=== PATIENT | female | born 1995 | race Caucasian/White ===

== ENCOUNTER → 2018-05-17 14:42 | Outpatient (CLI) | payer OTHER, SELFPAY ==
[2018-05-17 12:52] VITALS: BMI 35.1
--- OUTSIDE RECORDS SUMMARY | 2018-07-20 02:52 | XMS RPT_ITS ---
:1995 Author Organization [facility] Care Team Providers Name Role Phone Jeremiah Terrell Attending Unavailable Myra Gayle Referring Unavailable Jeremiah Terrell Attending Unavailable Jeremiah Terrell Referring Unavailable Myra Gayle Primary Care Unavailable PROBLEMS PROBLEMS DATE TYPE CONDITION / CODE ATTENDING STATUS SOURCE 05/17/2018 Unknown J02.9 - Acute Jeremiah Terrell Active Jasen pharyngitis, Community unspecified / Hospital J02.9(ICD-10) Repository PROCEDURES PROCEDURES No Procedure Records FoundRESULTS RESULTS Observed: 05/17/2018 Status: F Source: [place] CULTURE, R/O STREP A 3:43 PM [facility] REPOSITORY MICHELE Culture * This cultures intended use is to screen for Beta Streptococcus A only. All other pathogens and potential pathogens will not be screened for or reported. If a complete workup of all potential pathogens is indicated an order for a routine throat culture is required. No Streptococcus group A isolated. Performed By: #### M100.010 #### [facility] [address] [place], [place] [address]deana. 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 Patient states that the episode started with a cough and nasal drainage then developed into a sore throat. She describes her cough as productive of yellow sputum however denies hemoptysis, shortness of breath or difficulty breathing. She has had no fever, chills, sweats. No nausea, vomiting, diarrhea. No known ill contacts. She has not taken any medications for this current episode. No other associated symptoms or alleviating/aggravating factors. ROS Const Constitutional: No fever(s), chills, headache(s), night sweats or abnormal sleep pattern ENT ENT: Positive for nasal discharge, nasal congestion and post nasal drip; no headache(s), ear pain, ear discharge or sore throat Resp Respiratory: Positive for cough Cough: Yes productive and pain with cough; no wheezing, hemoptysis or shortness of breath Cardio Cardiology: No chest pain at rest or shortness of breath Neuro Neurology: No headache(s), behavioral changes or confusion Psych Psychiatric: No abnormal sleep pattern, No behavioral changes, No confusion Aller/Imm Allergy/Immunologic: No wheezing Exam Const General: cooperative, well developed HENKY Head: normal to inspection Ears: hearing grossly normal bilaterally, TM's normal bilaterally, EAC's normal Nose: nasal discharge clear Mouth: oral mucosae normal Throat: abnormal tonsil (Tonsillar to the right tonsil.) bilaterally, postnasal drainage, posterior oropharynx abnormal erythema; Negative for no exudates Resp Effort AND Inspection: normal respiratory effort, no audible wheezes, not labored Auscultation: Bilateral: Clear to Auscultation Cardio Palpation: normal PMI Rate: regular rate Rhythm: regular rhythm Neuro General: alert, CN's II-XI intact bilaterally Psych Appearance: grossly normal Mental Status: mental status grossly normal Results BMSRAPIDSTREPA Office Rapid Strep A Negative Last Edit by Florence Devries on 05/17/18 13:06 Assessment AND Plan Problems 1. URI, acute J06.9 Status Acute 2. Tonsillith J35.8 Status Acute Plan Encouraged to get plenty of rest, drink lots of clear liquids, and use Tylenol or Ibuprofen (unless contraindicated) for fever and comfort. Patient also educated on other symptomatic management techniques. To be seen in 7-10 days if no improvement; sooner if worsening of symptoms. Patient educated on tonsilloliths and their cause and all questions were answered. Patient advised of potential red flags and when appropriate to report to the ED. Patient verbalized understanding and agreement with all the above. Orders Orders: Coding Level of Care Code Off vis,new,level 3 Diagnoses URI, acute J06.9 Tonsillith J35.8 05/17/18 1428 <Electronically signed by Jeremiah CORTES> Date Jeremiah CORTES Cosigner Signature: Date (if applicable) CC: ALLERGIES ALLERGIES DATE TYPE / CODE NAME / CODE REACTION SEVERITY SOURCE 05/17/2018 Drug No Known Unknown [facility] Allergy/4160 Allergies/F00 [facility] [address]382(SNOMED [id number](RXNOR Repository CT) M) ENCOUNTERS ENCOUNTERS ADMIT/DISCHARGE ACCOUNT ADMITTING ENCOUNTER LOCATION SOURCE NUMBER CLASS 05/17/2018 [id number] Ambulatory [place] [facility] ing:LABSPEC Repository 05/17/2018/ [id number] Ambulatory BMSBuilding:B [place] 9 0 [facility] Repository PAYERS PAYERS ENCOUNTER GUARANTOR PAYER SUBSCRIBER SOURCE 05/17/2018 KWAN Cruz Primary Insurance:[facility] NANI DALEB: Jasen [id number] [facility] [id number], [place] [address]Ezr: Number: Repository [id number] (HP) Date:[id number] [address], [place] [address]ZF: CHECK WEBSITE 05/17/2018 Secondary NOT GIVENUNK [place] Insurance:SELF PAY [facility] Number: Effective Repository Date:2018-05-17 05/17/2018 KWAN Cruz Primary Insurance:[facility] NANI DALEB: Jasen [id number] [facility] [id number], [place] [address]Iuc: Number: Repository [id number] (HP) Date:[id number] [address], [place] [address]MW: CHECK WEBSITE 05/17/2018 Secondary NOT GIVENUNK [place] Insurance:SELF PAY [facility] Number: Effective Repository Date:2018-05-17
== END ==
PROVIDERS: Family Provider Family Medicine; PCP Family Medicine; Referring Provider Physician Assistant Surgical; Visit Provider Physician Assistant Surgical
DX: J02.9 Acute pharyngitis, unspecified (principal)
CPT/HCPCS: 87081

== ENCOUNTER 2018-08-12 18:33 | Emergency (ER) | payer OTHER, SELFPAY ==
[2018-05-17 12:52] VITALS: BMI 35.1
[2018-08-12 18:34] VITALS: BP 143/92; PULSE 100; RESP 16; TEMP 36.9; O2SAT 100; BMI 30.4
--- NOTE | 2018-08-12 18:48 | EKG12_ITS ---
Test Reason : CP Blood Pressure : / mmHG Vent. Rate : 091 BPM Atrial Rate : 091 BPM P-R Int : 158 ms QRS Dur : 094 ms QT Int : 354 ms P-R-T Axes : 057 026 -04 degrees QTc Int : 435 ms Normal sinus rhythm Possible Left atrial enlargement Nonspecific T wave abnormality Abnormal ECG Confirmed by ELIJAH TABARES, ENEDELIA ([id number]), brands editor MOLINA BELL ([id number]) on 08/16/2018 10:29:02 AM Referred By: EHSAN Confirmed By:ENEDELIA NAVA MD
--- NOTE | 2018-08-12 19:02 | RAD_ITS ---
STUDY: X-RAY CHEST REASON FOR EXAM: Female, 22 years old. A second chest pain for 2 days. TECHNIQUE: Single AP portable view of the chest. COMPARISON: Acute abdominal series with chest, January 21, 2015. FINDINGS: There is a decreased inspiratory effort. Prior study. There is no new mass or infiltrate. There is no demonstrated pleural abnormality. Normal size heart. Normal mediastinum and matt. Normal visualized pulmonary arteries. Normal visualized aortic arch and descending thoracic aorta. Normal visualized thoracic spine. Normal visualized ribs, clavicles, and shoulders. There is no demonstrated abnormality of the visualized soft tissue structures of the upper abdomen. RAD/Chest 1 View (Portable) IMPRESSION: No acute cardiopulmonary disease. Electronically Signed: Jonathan Carvajal DO at 19:14 EDT Tel [phone], Service support ,
[2018-08-12 19:05] VITALS: O2SAT 100
[2018-08-12 19:09] LABS: Absolute Lymphocyte Count 2.83 X10^3/ul (0.83-4.51); Absolute Neutrophil Count 5.3 X10^3/uL (2.0-7.7); Basophil# 0.02 X10^3/uL; Basophil% 0.2 % (0-1); Eosinophil# 0.12 X10^3/uL; Eosinophils% 1.4 % (0-5); Hematocrit 38.8 % (37-47); Hemoglobin 12.7 g/dl (12.0-15.0); Lymphocyte # 2.83 X10^3/ul (4.0); Lymphocyte % 31.9 % (19-41); Mean Corp Hgb Conc 32.7 g/gl (32-36); Mean Corpuscular Hgb 27.9 pg (27.0-32.0); Mean Corpuscular Volume 85.1 fL (81-99); Mean Platelet Vol. 10.1 fl (6.2-12.0); Monocyte# 0.53 X10^3/uL; Neutrophil # 5.34 X10^3/uL (2.7-7.7); Neutrophil % 60.3 % (47-70); Platelet Count 257 K/mm3 (150-450); RBC Distribution Width SD 43.7 fl (35.1-43.9); Red Blood Count 4.56 M/mm3 (4.2-5.4); White Blood Count 8.9 K/mm3 (4.4-11.0)
[2018-08-12 19:12] LABS: POSITIVE COUNT NO; POSITIVE DIFFERENTIAL NO; POSITIVE MORPHOLOGY NO
[2018-08-12 19:24] LABS: D-Dimer Quantitative (DVT/PE) < 0.27 FEU/ug/m (0.27-0.49)
[2018-08-12 19:30] LABS: Erythrocyte Sedimentation Rate 10 mm/hr (0-20)
[2018-08-12 19:35] LABS: Anion Gap 7 (5-15); BUN 17 mg/dL (7-18); BUN/Creat Ratio 17.2 RATIO (10-20); Calcium,Total 8.7 mg/dL (8.5-10.1); Chloride 105 mmol/L (98-107); Creatinine, Serum 0.99 mg/dL (0.55-1.02); EST Glomerular Filtration Rate 75 mL/min (>60); Est Glom Filt Rate - Afr Amer 90 mL/min (>60); Estimated Creatinine Clearance 80.89 ml/min; Glucose 126 mg/dL (74-106); Potassium 3.3 mmol/L (3.5-5.1); Sodium Level 139 mmol/L (136-145)
--- NOTE | 2018-08-12 19:50 | ED.VISSUMM ---
- ER Visit Summary Date of Service: 08/12/18 Chief Complaint: [Chest pain] History of Present Illness: The patient is a 22 F [presents the emergency department complaint of chest pain that started 2 days ago. Patient states that she initially started having similar discomfort about a month ago and was seen by her primary care physician who thought perhaps it might be anxiety related. Patient states that her symptoms were relieved for quite some time and then started coming back 2 days ago. Patient has had some mild nausea but no vomiting. She denies recent travel or surgery. She denies injury to her chest.] Physical Examination: [HEENT-PERRLA, EOMI. Cranial nerves II through XII grossly intact. TMs clear. Mucous membranes moist. No adenopathy. Cardiovascular-regular rate and rhythm without murmur or ectopy Lungs-clear to auscultation, chest wall stable without crepitus or subcu emphysema. No chest wall tenderness on palpation. Abdomen-normoactive bowel sounds, soft, nontender, no rebound or rigidity, no peritoneal signs. Extremities-intact ?4, normal range of motion, normal pulses, atraumatic] Test Results: [EKG obtained on arrival shows sinus rhythm with a ventricular rate of 91 bpm with some nonspecific ST changes. No old EKGs available for comparison. CBC with differential was normal. Sed rate was normal at 10. D-dimer is less than 0.27. Troponin is less than 0.015. Chemistries were unremarkable other than slightly depressed potassium 3.3. Chest x-ray showed nothing acute. ] Emergency Department Course and Treatment: [Patient given 40 mEq of potassium chloride p.o.] Treatment Plan: [Follow-up with primary care physician in 5 to 7 days. Patient will be given a prescription for Ativan as needed.] Disposition: [Discharged home in stable condition] Impression: [Chest pain-etiology uncertain Stress reaction] This note was generated with Visiarc dictation software. It may contain incorrect words, spelling, and punctuation that were not noted in review of the chart prior to signing ED Disposition - Plan for ED Patient: Referrals: Myra Gayle DO [Primary Care Provider] -
--- NOTE | 2018-08-12 19:53 | ED.DEP ---
ED Disposition - Plan for ED Patient: Instructions: ED Chest Pain Atypical Unkn Cause, ED Stress React Prescriptions: Lorazepam [Ativan] 1 mg PO TID PRN #10 tab PRN Reason: Anxiety Referrals: Myra Gayle DO [Primary Care Provider] - 5-7 Days
[2018-08-12 19:58] VITALS: BP 130/74; PULSE 76; RESP 16; O2SAT 98
== END 2018-08-12 20:08 | disposition home or self-care (01) ==
LOC: ED 19:08
PROVIDERS: Emergency Provider Emergency Medicine; Family Provider Family Medicine; PCP Family Medicine
DX: R07.9 Chest pain, unspecified (principal); F43.9 Reaction to severe stress, unspecified; F41.9 Anxiety disorder, unspecified; E28.2 Polycystic ovarian syndrome; Z79.84 Long term (current) use of oral hypoglycemic drugs
CPT/HCPCS: 71045; 80048; 84484; 85025; 85379; 85652; 93005; 99284; A4216

== ENCOUNTER → 2018-08-21 | Outpatient (CLI) | payer OTHER, SELFPAY ==
[2018-08-12 18:34] VITALS: BMI 30.4
[2018-08-21 08:17] LABS: Glucose 103 mg/dL (74-106)
[2018-08-21 09:27] LABS: Hemoglobin A1c 5.6 % (4.2-6.3)
== END | disposition home or self-care (01) ==
LOC: LAB 07:27
PROVIDERS: Family Provider Family Medicine; PCP Family Medicine; Referring Provider Family Medicine; Visit Provider Family Medicine
DX: Z91.89 Other specified personal risk factors, not elsewhere classified (principal)
CPT/HCPCS: 36415; 82947; 83036

== ENCOUNTER → 2020-02-14 09:15 | Outpatient (CLI) | payer OTHER, SELFPAY | PROVIDERS: PCP Family Medicine; Referring Provider Family Medicine; Visit Provider Family Medicine | DX: Z20.828 Contact with and (suspected) exposure to other viral communicable diseases (principal) | CPT/HCPCS: 87635; C9803; U0003 ==

== ENCOUNTER → 2020-05-17 15:02 | Outpatient (CLI) | payer OTHER, SELFPAY ==
[2020-04-29 13:58] VITALS: BMI 34.2
[2020-05-17 17:14] LABS: Absolute Lymphocyte Count 2.38 X10^3/uL (0.83-4.51); Absolute Neutrophil Count 4.1 X10^3/uL (2.0-7.7); Basophil# 0.06 X10^3/uL; Basophil% 0.8 % (0-1); Eosinophil# 0.15 X10^3/uL; Eosinophils% 2.1 % (0-5); Hematocrit 36.7 % (37-47); Hemoglobin 11.2 g/dL (12.0-15.0); Lymphocyte # 2.38 X10^3/ul (4.0); Lymphocyte % 32.6 % (19-41); Mean Corp Hgb Conc 30.5 g/dL (32-36); Mean Corpuscular Hgb 25.1 pg (27.0-32.0); Mean Corpuscular Volume 82.1 fL (81-99); Monocyte# 0.62 X10^3/uL; Monocyte% 8.5 % (0-10); NRBC Flagged by Analyzer 0 % (0-5); Neutrophil # 4.07 X10^3/uL (2.7-7.7); Neutrophil % 55.7 % (47-70); Platelet Count 290 K/mm3 (150-450); RBC Distribution Width SD 41.5 fl (35.1-43.9); Red Blood Count 4.47 M/mm3 (4.2-5.4); White Blood Count 7.3 K/mm3 (4.4-11.0)
[2020-05-17 17:50] LABS: Vitamin B12 764 pg/mL (211-911)
[2020-05-17 17:58] LABS: AST(SGOT) 21 U/L (15-37); Alanine Aminotransfer ALT/SGPT 22 U/L (13-56); Alkaline Phosphatase 70 U/L (45-117); Anion Gap 6 (5-15); BUN 15 mg/dL (7-18); BUN/Creat Ratio 18.4 RATIO (10-20); Calcium,Total 8.6 mg/dL (8.5-10.1); Chloride 106 mmol/L (98-107); Creatinine, Serum 0.82 mg/dL (0.55-1.02); EST Glomerular Filtration Rate 92 mL/min (>60); Est Glom Filt Rate - Afr Amer 111 mL/min (>60); Ferritin 6 ng/mL (8-252); Follicle Stimulating Hormone 3.2 mIU/mL; Free T3 2.6 pg/mL (2.18-3.98); Glucose 79 mg/dL (74-106); Iron 27 ug/dL (50-170); Luteinizing Hormone 8.7 mIU/mL; Potassium 3.7 mmol/L (3.5-5.1); Sodium Level 138 mmol/L (136-145); T4 Free Direct 0.76 ng/dL (0.76-1.46); Thyroid Stim Hormone (TSH) 1.75 uIU/mL (0.358-3.74)
== END ==
PROVIDERS: PCP Family Medicine; Referring Provider Family Medicine; Visit Provider Family Medicine
DX: E28.2 Polycystic ovarian syndrome (principal); N91.2 Amenorrhea, unspecified; D64.9 Anemia, unspecified; R53.83 Other fatigue; Z51.81 Encounter for therapeutic drug level monitoring
CPT/HCPCS: 36415; 80053; 82607; 82728; 83001; 83002; 83540; 84439; 84443; 84481; 85025

== ENCOUNTER → 2020-07-05 15:07 | Outpatient (CLI) | payer OTHER, SELFPAY ==
[2020-04-29 13:58] VITALS: BMI 34.2
[2020-07-05 15:40] LABS: Absolute Lymphocyte Count 2.46 X10^3/uL (0.83-4.51); Absolute Neutrophil Count 4.5 X10^3/uL (2.0-7.7); Basophil# 0.06 X10^3/uL; Basophil% 0.8 % (0-1); Eosinophil# 0.16 X10^3/uL; Eosinophils% 2.1 % (0-5); Hematocrit 39.2 % (37-47); Hemoglobin 12.3 g/dL (12.0-15.0); Lymphocyte # 2.46 X10^3/ul (4.0); Lymphocyte % 31.6 % (19-41); Mean Corp Hgb Conc 31.4 g/dL (32-36); Mean Corpuscular Hgb 26.6 pg (27.0-32.0); Mean Corpuscular Volume 84.7 fL (81-99); Mean Platelet Vol. 10.6 fl (6.2-12.0); Monocyte# 0.62 X10^3/uL; NRBC Flagged by Analyzer 0 % (0-5); Neutrophil # 4.46 X10^3/uL (2.7-7.7); Neutrophil % 57.2 % (47-70); Platelet Count 285 K/mm3 (150-450); RBC Distribution Width CV 16.6 % (11.6-14.6); RBC Distribution Width SD 51.7 fl (35.1-43.9); Red Blood Count 4.63 M/mm3 (4.2-5.4); White Blood Count 7.8 K/mm3 (4.4-11.0)
[2020-07-05 16:02] LABS: Ferritin 17 ng/mL (8-252); Iron 42 ug/dL (50-170)
== END ==
PROVIDERS: PCP Family Medicine; Visit Provider Family Medicine
DX: D50.9 Iron deficiency anemia, unspecified (principal)
CPT/HCPCS: 36415; 82728; 83540; 85025

== ENCOUNTER 2020-07-20 09:06 | Day surgery (SDC) | payer OTHER, SELFPAY ==
[2020-04-29 13:58] VITALS: BMI 34.2
[2020-07-20] VITALS (10 sets, daily range): BP systolic 91–137; BP diastolic 37–82; PULSE 57–92; RESP 14–18; TEMP 36.1–36.8; O2SAT 97–100; BMI 33.9
--- NOTE | 2020-07-20 | TONS_PTH ---
PATIENT: KWAN WATKINS LOC: [facility] U#:[id number] AGE/SX: 24/F ROOM: RE07/20/[address]: Dr. Lane Vásquez MD : 1995 BED: DIS: 07/20/2020 SPEC #: [id number] RECD: 07/20/20 13:53 STATUS: BRANDY REEve #: [id number] NEVIN: 07/20/20 00:[address]: Lane Vásquez DEPT: SURGICAL PATHOLOGY RECD BY: Junior Law ENTERED: 07/23/20 07:40 SP TYPE: TONSILS OTHR DR: Dr. Myra Gayle, DO Tissues: A - Tonsil, NOS B - Tonsil, NOS Procedures: Surgery Specimen Level III HEADER OPERATION: Tonsillectomy PRE-OP DIAGNOSIS: Chronic tonsillitis, snoring TISSUE SUBMITTED: A - Right tonsil, B - Left tonsil MICROSCOPIC DIAGNOSIS A. Right tonsil, tonsillectomy: Benign lymphoid follicular hyperplasia, consistent with chronic tonsillitis. Organisms consistent with actinomyces. B. Left tonsil, tonsillectomy: Benign lymphoid follicular hyperplasia, consistent with chronic tonsillitis. Organisms consistent with actinomyces. AM:ethel 07/24/2020 MICROSCOPIC DESCRIPTION Slides are reviewed. GROSS DESCRIPTION A - Received in formalin labeled with the patient's name and designated right tonsil. The specimen consists of a tonsil that weighs 4.3 gm and measures 3 x 2 x 1.5 cm. The external surface is pink-harris, smooth, glistening and somewhat lobulated. Focally it is hemorrhagic, granular and bears cautery artifact. Serial cross sections through the tonsil reveal normal tonsillar architecture. Information Lead sections are submitted in one cassette. B - Received in formalin labeled with the patient's name and designated left tonsil. The specimen consists of a tonsil that weighs 4.3 gm and measures 3 x 2 x 1.5 cm. The external surface is pink-harris, smooth, glistening and somewhat lobulated. Focally it is hemorrhagic, granular and bears cautery artifact. Serial cross sections through the tonsil reveal normal tonsillar architecture. Information Lead sections are submitted in one cassette. / SJ:ethel 07/23/20 TC:5 CPT: 05533 x2
[2020-07-20 09:40] LABS: Internal QC Validated? YES +Cl - CLEAR BKGD; Pregnancy, Urine Negative Negative
--- NOTE | 2020-07-20 10:55 | OP.PCM_ITS ---
Problem List (1) Chronic tonsillitis Status: Chronic (2) Snoring Status: Acute Report of Operation Date of Procedure: 07/20/20 Pre-Operative Diagnosis: Chronic tonsillitis, snoring Post-Operative Diagnosis: Same Surgery/Procedure Performed:: Tonsillectomy Description of Surgical Findings:: And is a 24-year-old female presents evaluation of frequent recurrent sore throats as well as snoring but no witnessed apnea. Examination showed cryptic tonsillar hypertrophy and given the frequency of her sore throat complaints the above procedures offered hopes of improvement. She is eager to proceed. The risks, alternatives, potential complications, and benefits were discussed at length and any questions answered to the patient and/or caregiver's satisfaction. Witnessed informed consent was obtained in the office, and the patient and/or caregiver was agreeable to proceed. Procedure went as follows: The patient was identified in the preoperative holding, brought to the operating room, was placed under general anesthesia and intubated. When appropriate anesthesia was obtained, the head of bed was rotated and the patient prepped and draped in usual sterile fashion. A Keesha Javy mouthgag was then placed and the patient suspended from the [place] stand. The oral cavity was examined and noted to have 3+ cryptic tonsillar hypertrophy. Beginning on the right side, the right tonsil was then grasped with a curved tenaculum and dissected from the underlying capsule with monopolar cautery. This was then sent as specimen. Similar procedure was then completed on the contralateral side. The oral and nasal cavities were then irrigated with saline solution. An NG tube was then placed to decompress the stomach. The patient was then returned to anesthesia, revived and extubated having tolerated the procedure well. Type of Anesthesia:: General Anesthesiologist: Mark Lebron Special Medications: none Specimen's removed: bilateral tonsils Estimated Blood Loss (mL): 0 mL Fluids Replaced: 600 mL Grafts/Implants Used: none - Complications none - Admit VTE Documentation VTE Present on Admission: No VTE Mechan Device Prophylaxis: SCD's VTE Pharm Prophylaxis ordered?: No
--- NOTE | 2020-07-20 10:58 | DCINST_ITS ---
Discharge Diet: No Restrictions Discharge Activity: Return to Normal Activity Call your doctor if your incision/area has: Sudden Increased Bleeding Call your doctor if you observe: Fever of 101 or Higher, Uncontrolled pain Allergies/Adverse Reactions: Allergies No Known Allergies Allergy (Verified 07/20/20 09:21) Medications to take at Discharge metformin 500 mg tablet 500 mg PO QHS 05/17/18 Primary Care Physician: Myra Gayle DO [Primary Care Provider] - Test Results: Test results from this visit will be discussed in further detail at your follow- up appointment, if applicable. Please Follow Up With: Lane Vásquez MD When: 2 weeks
[2020-07-20] MEDS: Lactated Ringers 1,000 ML 100 ML IV ×2 (11:04→13:04)
[2020-07-20 11:25] LABS: Bedside Glucose 89 mg/dL (70-110)
[2020-07-20] MEDS: Acetaminophen 160 MG/5 ML UDC 500 MG PO (12:40)
[2020-07-20] MEDS: Ibuprofen 100 MG/5 ML UDC 500 MG PO (13:04)
== END 2020-07-20 15:20 | disposition home or self-care (01) ==
LOC: SDC 09:06 → AC 09:08
PROVIDERS: Anesthesiology; PCP Family Medicine; Referring Provider Otolaryngology; Visit Provider Otolaryngology
PROC: (CPT 42826; principal; 2020-07-20 10:25)
DX: J35.01 Chronic tonsillitis (principal); R06.83 Snoring; Z20.822 Contact with and (suspected) exposure to COVID-19
CPT/HCPCS: 42826; 81025; 82962; 87426; 88304; C9803; J7120; J2405

== ENCOUNTER 2020-07-26 03:07 | Emergency (ER) | payer OTHER, SELFPAY ==
[2020-07-20 09:43] VITALS: BMI 33.9
[2020-07-26 03:08] VITALS: BP 129/91; PULSE 75; RESP 16; TEMP 35.9; O2SAT 100; BMI 34.8
--- NOTE | 2020-07-26 03:17 | ED.VISSUMM ---
- ER Visit Summary Date of Service: 07/26/20 Chief Complaint: Throat pain status post tonsillectomy History of Present Illness: The patient is a 24 F who presents with a sore throat and nausea. She had a tonsillectomy performed by Dr. Vásquez 5 days ago. She was told to take Tylenol and ibuprofen after this but she is continued have pain. She also has been feeling nauseated as well. She has been trying to keep food and liquids down but is hard because of the pain. She denies having any fevers. She denies any bleeding. No lightheadedness or dizziness. Physical Examination: Vital signs reviewed. HEENT exam shows postoperative changes in the oropharynx. There is no erythema or bleeding. The uvula is midline. She is handling her secretions normally. Heart is regular rate and rhythm without murmurs. Lungs are clear to auscultation. Abdomen is soft and nontender. Extremities reveal no edema. Skin exam normal. Neurologic exam normal. Test Results: None performed Emergency Department Course and Treatment: Patient was given morphine and Zofran. She had improvement with her pain after this. I will give her a short course of Lortab to help with pain at home. She will continue with ibuprofen along with this. She will hydrate and will follow up with Dr. Vásquez Treatment Plan: [] Disposition: Discharge Impression: Postoperative pain status post tonsillectomy, nausea This note was generated with PiniOn dictation software. It may contain incorrect words, spelling, and punctuation that were not noted in review of the chart prior to signing ED Disposition - Plan for ED Patient: Disposition: Home or Assisted Living Instructions: After?Tonsillectomy/Adenoidectomy Prescriptions: Hydrocodone/Acetaminophen [Hydrocodone-Acetamn 7.5-325/15] 15 ml PO TID PRN 3 Days #140 solution PRN Reason: Pain/Inflammation Prescription Printed Ondansetron [Zofran Odt] 4 mg PO Q8H PRN PRN #10 tablet PRN Reason: Nausea Prescription Printed Referrals: Myra Gayle DO [Primary Care Provider] -
[2020-07-26] MEDS: 0.9% Normal Saline 1,000 ML 999 ML IV (03:28)
[2020-07-26] MEDS: Ondansetron 4 MG/2 ML Vial IV (03:28)
[2020-07-26] MEDS: Morphine 4 MG/ML Syringe IV (03:28)
== END 2020-07-26 05:06 | disposition home or self-care (01) ==
PROVIDERS: Emergency Provider Emergency Medicine; PCP Family Medicine
DX: G89.18 Other acute postprocedural pain (principal); R11.0 Nausea
CPT/HCPCS: 96374; 96375; 99283; J7030; J2405

== ENCOUNTER → 2020-12-17 | Outpatient (CLI) | payer OTHER, SELFPAY | END | disposition home or self-care (01) | PROVIDERS: PCP Family Medicine; Referring Provider Physician Assistant; Visit Provider Physician Assistant | DX: J20.9 Acute bronchitis, unspecified (principal) | CPT/HCPCS: 87635; U0005; U0003 ==

== ENCOUNTER 2021-07-16 14:15 | Outpatient (CLI) | payer OTHER, SELFPAY ==
[2021-07-19 00:07] LABS: Chlamydia By Nucleic Acid AMP Negative (Negative)
[2021-07-19 09:21] LABS: Gonococcus By Nucleic Acid AMP Negative (Negative)
[2021-07-22 15:59] LABS: HPV Reflexed? NOT INDICATED
== END 2021-07-16 23:59 | disposition home or self-care (01) ==
LOC: LABSPEC 14:16
PROVIDERS: PCP Family Medicine; Referring Provider Nurse Practitioner Women's Health; Visit Provider Nurse Practitioner Women's Health
DX: Z12.4 Encounter for screening for malignant neoplasm of cervix (principal); Z11.3 Encounter for screening for infections with a predominantly sexual mode of transmission
CPT/HCPCS: 87491; 87591; 88175; G0145

== ENCOUNTER 2021-09-11 15:04 | Outpatient (RCR) | payer OTHER, SELFPAY | END 2021-09-24 23:59 | LOC: NS 15:04 | PROVIDERS: PCP Family Medicine; Referring Provider Family Medicine; Visit Provider Family Medicine | DX: Z71.3 Dietary counseling and surveillance (principal); E66.9 Obesity, unspecified; Z68.34 Body mass index [BMI] 34.0-34.9, adult | CPT/HCPCS: 97802 ==

== ENCOUNTER → 2021-09-11 | Outpatient (CLI) | payer OTHER, SELFPAY ==
[2021-09-11 07:27] LABS: Hemoglobin A1c 5.3 % (3.8-5.6)
[2021-09-11 07:40] LABS: AST(SGOT) 37 U/L (15-37); Alanine Aminotransfer ALT/SGPT 81 U/L (13-56); Albumin, Serum 3.8 g/dL (3.2-5.0); Alkaline Phosphatase 52 U/L (45-117); Anion Gap 5 (5-15); BUN 16 mg/dL (7-18); BUN/Creat Ratio 16.8 RATIO (10-20); Calcium,Total 8.6 mg/dL (8.5-10.1); Chloride 107 mmol/L (98-107); Cholesterol 156 mg/dL (200); Creatinine, Serum 0.95 mg/dL (0.55-1.02); EST Glomerular Filtration Rate 76 mL/min (>60); Est Glom Filt Rate - Afr Amer 92 mL/min (>60); Globulin 3.9 g/dL (2.2-4.2); Glucose 90 mg/dL (74-106); High Density Lipoprotein 39 mg/dL; Potassium 3.9 mmol/L (3.5-5.1); Protein, Total 7.7 g/dL (6.4-8.2); Sodium Level 138 mmol/L (136-145); Triglycerides 239 mg/dL; Very Low Density Lipoprotein 48 mg/dL (5-40)
== END | disposition home or self-care (01) ==
LOC: LAB 06:09
PROVIDERS: PCP Family Medicine; Referring Provider Family Medicine; Visit Provider Family Medicine
DX: E28.2 Polycystic ovarian syndrome (principal); R73.01 Impaired fasting glucose; Z51.81 Encounter for therapeutic drug level monitoring
CPT/HCPCS: 36415; 80053; 80061; 83036

== ENCOUNTER 2021-10-10 07:26 | Outpatient (RCR) | payer OTHER, SELFPAY | END 2021-10-24 23:59 | LOC: NS 07:26 | PROVIDERS: PCP Family Medicine; Referring Provider Family Medicine; Visit Provider Family Medicine | DX: Z71.3 Dietary counseling and surveillance (principal); E66.9 Obesity, unspecified; Z68.33 Body mass index [BMI] 33.0-33.9, adult | CPT/HCPCS: 97803 ==

== ENCOUNTER 2021-11-07 07:26 | Outpatient (RCR) | payer OTHER, SELFPAY | END 2021-11-24 23:59 | LOC: NS 07:26 | PROVIDERS: PCP Family Medicine; Referring Provider Family Medicine; Visit Provider Family Medicine | DX: Z71.3 Dietary counseling and surveillance (principal); E66.9 Obesity, unspecified; Z68.33 Body mass index [BMI] 33.0-33.9, adult | CPT/HCPCS: 97803 ==

== ENCOUNTER 2021-11-26 07:31 | Outpatient (RCR) | payer OTHER, SELFPAY | END 2021-12-25 23:59 | LOC: NS 07:31 | PROVIDERS: PCP Family Medicine; Referring Provider Family Medicine; Visit Provider Family Medicine | DX: Z71.3 Dietary counseling and surveillance (principal); E66.9 Obesity, unspecified; Z68.33 Body mass index [BMI] 33.0-33.9, adult | CPT/HCPCS: 97803 ==

== ENCOUNTER 2021-12-31 15:24 | Outpatient (RCR) | payer OTHER, SELFPAY | END 2022-01-24 23:59 | LOC: NS 15:24 | PROVIDERS: PCP Family Medicine; Referring Provider Family Medicine; Visit Provider Family Medicine | DX: Z71.3 Dietary counseling and surveillance (principal); E66.9 Obesity, unspecified; Z68.33 Body mass index [BMI] 33.0-33.9, adult | CPT/HCPCS: 97803 ==

== ENCOUNTER → 2024-11-24 | Outpatient (CLI) | payer OTHER, SELFPAY | END | disposition home or self-care (01) | LOC: LABSPEC 11:35 | PROVIDERS: PCP Family Medicine; Visit Provider Advanced Practice Midwife | DX: Z12.4 Encounter for screening for malignant neoplasm of cervix (principal) | CPT/HCPCS: 88175; G0145 ==

== ENCOUNTER 2024-12-07 10:57 | Emergency (ER) | payer OTHER, SELFPAY ==
[2024-12-07 10:58] VITALS: BP 143/86; PULSE 87; RESP 15; TEMP 36.6; O2SAT 100; BMI 33.1
--- NOTE | 2024-12-07 11:23 | ED.VIS.FEGU ---
HPI HPI - Female History of Present Illness Chief Complaint: Vag Bld, Preg PFSH PFSH Medical History Anxiety History of PCOS Fatigue Home Medications ?Medication ?Instructions ?Recorded ?Last Taken ?Type NK 11/24/24 Unknown History Allergy/AdvReac Type Severity Reaction Status Date / Time No Known Allergies Allergy Verified 12/07/24 11:00 Family History Grandfather Diabetes Heart disease Myocardial infarction Alzheimer's dementia Surgical History History of tonsillectomy Social History (Updated 11/24/24 @ 08:04 by Susana Negrete) household members: spouse current occupational status: employed current occupation: [employer] Smoking Status: Never smoker alcohol intake: never substance use type: does not use what type of physical activity do you participate in: running and weight training frequency: 1-2 times per week seatbelt use: always do you feel safe at home: Yes additional social history: : [place] EXAM Physical Exam Const Vital Signs: 12/07/24 10:58 12/07/24 12:58 12/07/24 14:06 Temperature 98 F Temperature Source Oral Pulse Rate 87 78 71 Respiratory Rate 15 16 19 H Blood Pressure 143/86 H 118/78 114/68 Blood Pressure Mean 105 91 83 Pulse Ox 100 98 100 Oxygen Delivery Method Room Air Room Air Room Air MDM MDM MDM Narrative Medical decision making narrative: HISTORY OF PRESENT ILLNESS: Chief complaint: Vaginal bleeding, early 29-year-old female history of anxiety, PCOS, fatigue presents with bleeding in early . States he is approximate 6 weeks . Last period was in October. Notes is her first she is a G1, P0. Denies lightheadedness, dizziness or syncope. Notes some abdominal cramping but denies abdominal pain at this time. No history of miscarriages. No fertility treatments. REVIEW OF SYSTEMS: Pertinent positives: Vaginal bleeding, abdominal cramping Pertinent negatives: As per HPI PHYSICAL EXAM: Nursing triage notes reviewed, Vital signs reviewed Constitutional: please see mdm HENT: MMM Eyes: Pupils equal round and reactive to light, Extraocular muscles intact Neck: No stridor, no JVD, full neck ROM Lungs: Clear to auscultation, No wheezing or rales. No increased work of breathing, no conversational dyspnea, no accessory muscle use, no nasal flaring. No respiratory distress noted Heart: Regular rate and rhythm, No murmurs, No rubs and No gallops, 2+ distal pulses (radial, femoral, posterior tibial) in all extremities Abdomen: Soft, there is no tenderness, rigidity, rebound or guarding, no obvious peritoneal signs, no palpable pulsatile abdominal masses, no auscultated abdominal bruit : No CVAT Extremities: No edema Neuro: No new focal neurological deficits, cranial nerves II through XII intact, 5/5 strength in all present extremities. Intact sensation to light touch in all present extremities, 2+ reflexes bilateral patella tendons. Skin: No rash or lesions noted MEDICAL DECISION MAKING: Chief Complaint: please see HPI External records reviewed: Reviewed prior imaging studies: No recent advanced ultrasound of the abdomen noted. Factors affecting care: As per HPI Social determinants of health: none History obtained from others: none Consults: none MDM Narrative: The patient was initially hemodynamically stable, afebrile and nontoxic-appearing. Abdominal exam benign. I considered the following differential diagnosis: Ectopic , miscarriage, bleeding in early I obtained a broad lab and imaging workup to further determine if the patient was suffering from a life-threatening etiology. ALL IMAGES (IF OBTAINED) HAVE BEEN PERSONALLY REVIEWED AND INTERPRETED BY MYSELF. CBC without leukocytosis, severe anemia or thrombocytopenia BMP without evidence of significant electrolyte abnormalities, no anion gap, no acute kidney injury. Beta hCG 2500 consistent with early Urinalysis shows no evidence of urinary inflammation suggestive of UTI Patient is a positive no need for RhoGAM First trimester ultrasound showed an abnormal gestational sac no heartbeat but was not definitive for ectopic or miscarriage. The synthesis of the patient's history, physical exam, labs images suggest threatened miscarriage. No definitive miscarriage, anemia or ectopic at this time. Will provide repeat hCG in 2 days. Encourage outpatient [facility] follow-up. Gave strict return precautions. The patient and/or family, caregivers express understanding. The patient and/or family, caregivers agrees with the plan. Shared decision making: I will have a discussion with the patient and or visitors regarding risk/benefits of further testing or admission. They will be made aware of of the risk/benefits inherent in this decision they will be given the opportunity to voice understanding. Total critical care time today provided was at least 0 minutes. This excludes separately billable procedures. Critical care time (if documented) is secondary to the patient having high probability of clinically significant/life threatening deterioration in the patient's condition which required my urgent intervention. Impression: 1. First trimester 2. Threatened miscarriage Dispo: Discharge home This note was generated with [employer] dictation software. It may contain incorrect words, spelling, and punctuation that were not noted in review of the chart prior to signing. Lab Data Labs: Laboratory Results - last 24 hr 12/07/24 12/07/24 12/07/24 11:20 11:23 14:00 WBC 7.3 RBC 4.29 Hgb 12.8 Hct 38.1 MCV 88.8 MCH 29.8 MCHC 33.6 RDW Std Deviation 43.0 RDW Coeff of Madhuri 13.2 Plt Count 229 MPV 10.9 Immature Gran % (Auto) 0.400 Neut % (Auto) 55.7 Lymph % (Auto) 28.9 [place] % (Auto) 8.5 Eos % (Auto) 5.4 H Baso % (Auto) 1.1 H Absolute Neuts (auto) 4.1 Absolute Lymphs (auto) 2.10 Nucleated RBC % 0 Sodium 137 Potassium 4.2 Chloride 105 Carbon Dioxide 22.3 Anion Gap 10 BUN 11 Creatinine 0.86 Estim Creat Clear Calc 108.09 Est GFR (MDRD) Non-Af 94 BUN/Creatinine Ratio 12.4 Glucose 101 H Calcium 8.6 HCG, Quant 2576 H Urine Color Straw Urine Clarity Clear Urine pH 7.0 Ur Specific [place] 1.010 Urine Protein Negative Urine Glucose (UA) Normal Urine Ketones Negative Urine Occult Blood 10 H Urine Nitrite Negative Urine Bilirubin Negative Urine Urobilinogen Normal Ur Leukocyte Esterase Negative Urine RBC 0 SEEN Urine WBC 0 SEEN Ur Squamous Epith Cells 0 SEEN Urine Bacteria 0 SEEN Urine Mucus 0 SEEN Blood Type A POSITIVE Radiography Diagnostic Testing: Clinical Impression(s) from Imaging Studies Obstetrics Ultrasound 12/07/24 11:24 IMPRESSION: Abnormal appearance of the gestational sac. No cardiac activity noted at this time. Follow-up recommended. Reading Location: [id number] Discharge Plan Triage Chief Complaint: Vag Bld, Preg ED Provider: Nayan Barcenas Dx/Rx/DC Orders Clinical Impression: Spotting affecting Instructions: Vaginal Bleeding During Prescriptions: No Action NK Other Ambulatory Orders: hCG Titer Quant., Serum (Routine) Timeframe: 2 Days Facility: [facility] - Location: Laboratory Ordered By: Dr. Nayan Barcenas Primary Care Provider: Myra Gayle Referrals: Andi Lebron MD [Med Staff - Active Staff] - Activity Restrictions/Additional Instructions: Thank you for trusting us with your care today! Your labs are consistent with early . Your ultrasound was NOT definitive for miscarriage or outside the uterus. Please take Tylenol (2 pills, 650 mg) as often as every 6 hours and as needed for pain and fever control. Please return to the emergency department if your symptoms change or worsen. Specifically develop heavy bleeding, you lose consciousness or develop severe abdominal pain Please follow-up at the [place] outpatient lab for repeat hormone testing in 2 days. This is 12/09/2024. Please follow with your primary care physician for further outpatient evaluation and management. Print Language: Jamaican Disposition Disposition: Home, Self Care
--- NOTE | 2024-12-07 11:24 | US_ITS ---
PROCEDURE: TRANSVAGINAL W/PREG US 12/07/2024 REASON FOR EXAM: VAGINAL BLEEDING, EARLY TECHNIQUE: TRANSVAGINAL W/PREG US COMPARISON: None FINDINGS: Comments: LMP: November 06, 2024. Number of Gestational Sacs: 1 Gestational Sac Shape: Irregular Number of Fetuses: 1 Heart Rate: Not detected at this time. ( Yolk Sac: 5.2 mm Placenta: Presently not well-visualized The tab Uterine Abnormalities: Maternal uterus is unremarkable. Ovaries / Adnexa: Both maternal ovaries are visualized and unremarkable. DIMENSIONS: Parameter Measurement / EGA [place] Rump Length: 8.3 mm/6 weeks and 6 days Gestational Sac: 2.43 cm/7 weeks and 3 days Yolk Sac: 5.2 mm/ ESTIMATED GESTATIONAL AGE: By Ultrasound: 7 weeks and 1 day By LMP: 5 weeks and 6 days ESTIMATED DATE OF DELIVERY: By Ultrasound: July 25, 2025 By LMP: August 03, 2025 US/Transvaginal w/Preg US IMPRESSION: Abnormal appearance of the gestational sac. No cardiac activity noted at this time. Follow-up recommended. Reading Location: [id number]
[2024-12-07 11:37] LABS: Hematocrit 38.1 % (37-47); Hemoglobin 12.8 g/dL (12.0-15.0); Immature Granulocytes Count 0.030 X10^3/uL (0.0-0.0); Mean Corp Hgb Conc 33.6 g/dL (32-36); Mean Corpuscular Volume 88.8 fL (81-99); Mean Platelet Vol. 10.9 fl (6.2-12.0); NRBC Flagged by Analyzer 0 % (0-5); Platelet Count 229 K/mm3 (150-450); RBC Distribution Width CV 13.2 % (11.6-14.6); RBC Distribution Width SD 43.0 fl (35.1-43.9); Red Blood Count 4.29 M/mm3 (4.2-5.4); White Blood Count 7.3 K/mm3 (4.4-11.0)
[2024-12-07 12:26] LABS: Anion Gap 10 (5-15); BUN 11 mg/dL (4-19); BUN/Creat Ratio 12.4 RATIO (10-20); Carbon Dioxide 22.3 mmol/L (21.0-32.0); Chloride 105 mmol/L (98-108); Estimated Creatinine Clearance 108.09 ml/min (50-250); Glucose 101 mg/dL (70-99); Potassium 4.2 mmol/L (3.3-5.1)
[2024-12-07 12:30] LABS: hCG Titer Quant., Serum 2576 mIU/mL (<9 non-preg)
[2024-12-07 12:34] LABS: Calcium,Total 8.6 mg/dL (7.6-11.0)
[2024-12-07 12:58] VITALS: BP 118/78; PULSE 78; RESP 16; O2SAT 98
[2024-12-07 14:06] VITALS: BP 114/68; PULSE 71; RESP 19; O2SAT 100
[2024-12-07 14:14] LABS: Mucous, Urine 0 SEEN /hpf (<or=2+); Red Blood Cells-Urine 0 SEEN /hpf (0-5); Squamous Epithelial Cells - UA 0 SEEN /hpf (5-10)
[2024-12-07 14:21] LABS: Color, Urine Straw (Yellow); Glucose, Dipstick Normal (Normal); Ketone-Dipstick Negative (Negative); Leukocyte Esterase-Dipstick Negative /ul (Negative); Nitrite-Dipstick Negative (Negative); Occult Blood-Urine 10 /ul (Negative); Protein-Dipstick Negative (Negative); Specific Gravity, Urine 1.010 (1.002-1.030); Urine Bilirubin Dipstick Negative (Negative)
[2024-12-07 14:57] VITALS: BP 117/70; PULSE 74; RESP 15; TEMP 36.6; O2SAT 100
== END 2024-12-07 14:58 | disposition home or self-care (01) ==
PROVIDERS: Emergency Provider Emergency Medicine; PCP Family Medicine; Visit Provider Emergency Medicine
DX: O20.0 Threatened abortion (principal)
CPT/HCPCS: 76817; 80048; 81001; 84702; 85025; 86900; 86901; 99283

== ENCOUNTER → 2024-12-09 | Outpatient (CLI) | payer OTHER, SELFPAY ==
[2024-12-09 10:12] LABS: hCG Titer Quant., Serum 2922 mIU/mL (<9 non-preg)
== END | disposition home or self-care (01) ==
LOC: LAB 08:44
PROVIDERS: Obstetrics & Gynecology; PCP Family Medicine; Referring Provider Obstetrics & Gynecology; Visit Provider Obstetrics & Gynecology
DX: O26.859 Spotting complicating pregnancy, unspecified trimester (principal); Z3A.00 Weeks of gestation of pregnancy not specified
CPT/HCPCS: 36415; 84702

== ENCOUNTER 2024-12-19 14:09 | Day surgery (SDC) | payer OTHER, SELFPAY ==
[2024-12-19] VITALS (9 sets, daily range): BP systolic 100–109; BP diastolic 58–66; PULSE 73–86; RESP 16–18; TEMP 36.3–36.9; O2SAT 96–100; BMI 33.0
--- OUTSIDE RECORDS SUMMARY | 2024-12-19 14:31 | XMS RPT_ITS | CCD ---
Author Organization [facility] Care Team Providers Care Butter Printer Name Role Phone Dr. Myra Gayle Primary Care Provider [phone] Dr. Myra Gayle Referring Provider Mayela [employer] SALES REPRESENTATIVE, DAR Kiser Attending Provider Dr. Myra Gayle DO Primary Care Provider Dr. Myra Gayle DO Referring Provider Helena Ruiz CNM Attending Provider [phone] Narinder LAZCANO, Dr. Spicer Emergency Provider Isabel TABARES, Dr. Franco Attending Provider Dr. Nayan Barcenas DO Attending Provider Isabel TABARES, Dr. Franco Referring Provider Malys, Myra Primary Care Unavailable Nayan Barcenas Attending Unavailable Malys, Myra Primary Care Unavailable Lindsay Roa Attending Unavailabl e Vande Lindsay Roa Referring Unavailabl e Malys, Myra Referring Unavailable Malys, Myra Primary Care Unavailable Joan Hall Attending Unavailable Joan Hall Attending Unavailable Malys, Myra Referring Unavailable Malys, Myra Primary Care Unavailable Malys, Myra Primary Care Unavailable Helena Ruiz Attending Unavailable Malys, Myra Referring Unavailable Malys, Myra Referring Unavailable Malys, Myra Primary Care Unavailable Joan Hall Attending Unavailable Joan Hall Referring Unavailable Malys, Myra Primary Care Unavailable Joan Hall Attending Unavailable Joan Hall Referring Unavailable Malys, Myra Primary Care Unavailable Joan Hall Attending Unavailable Malys, Myra Primary Care Unavailable Helena Ruiz Attending Unavailable Medications Current Medications Medication Drug Class(es) Dates Sig (Normalized) Sig (Original) Multivitamin preparation (5 sources) Start: 07-16-2021 take 1 tablet by mouth once daily Multivitamin Active 1 TABLET PO DAILY July 16, 2021 10:10am Start: 07-16-2021 take 1 tablet by allyson th once daily Multivitamin Active 1 TABLET PO DAILY July 16, 2021 12:00am Hallett (Nk) (6 sources) Start: 11-24-2024 Hallett (Nk) A ctive November 24, 2024 12:00am Completed/Discontinued Medications Medication Drug Class(es) Dates Sig (Normalized) Sig (Original) acetaminophen 32 mg/ml oral suspension (11 sources) Start: 07-20-2020 End: 09-22-2020 take 500 mg by mouth every four hours as needed for pain Acetaminophen 160 MG/5 ML suspension Discontinued 500 mg PO EVERY 4 HOURS NEEDED as needed for Pain Score 1-5/10 0 July 20, 2020 12:00am September 22, 2020 11:10am acetaminophen 21.7 mg/ml / HYDROcodone bitartrate 0.5 mg/ml oral solution (11 sources) Opioid Agonist Start: 07-26-2020 End: 07-29-2020 take 1 mL by mouth three times daily as needed for pain Hydrocodone-Acetami nophen 15 ML solution Discontinued 15 mL PO THREE TIMES A DAY as needed for Pain/Inflammation 140 3 0 July 26, 2020 July 28, 2020 12:00am July 29, 2020 12:03am Throat pain in adult Pain in throat Start: 07-26-2020 End: 07-29-2020 take 1 mL by mouth three times daily Hydrocodone-Acetaminophen Discontinued 1 5 ML PO THREE TIMES A DAY 140 3 July 26, 2020 July 29, 2020 12:03am amoxicillin 875 mg / clavulanate 125 mg oral tablet (11 sources) Penicillin-class Antibacterial Start: 09-22-2020 End: 10-02-2020 Amoxicillin-Pot Clavulanate (Augmentin) 875-125 mg tablet Discontinued 1 {tbl} PO Q12H 20 10 0 September 22, 2020 12:00am October 01, 2020 12:00am October 02, 2020 12:01am Acute sinusitis, unspecified citalopram 10 mg oral tablet (6 sources) Serotonin Reuptake Inhibitor Start: 07-22-2022 End: 11-12-2023 take 1 tablet by mouth once daily Citalopram 10 mg tablet Discontinued 10 mg PO DAILY July 22, 2022 12:00am November 12, 2023 1:06pm ferrous sulfate 325 mg oral tablet (11 sources) Start: 07-16-2021 End: 11-12-2023 take 1 tablet by mouth once daily Ferrous Sulfate (Iron) 325 mg (65 mg iron) tablet Discontinued 325 mg PO DAILY July 16, 2021 12:00am November 12, 2023 1:06pm ibuprofen 20 mg/ml oral suspension (11 sources) Nonsteroidal Anti-inflammatory Drug Start: 07-20-2020 End: 09-22-2020 take 500 mg by mouth every six hours as needed for pain Ibuprofen 100 MG/5 ML suspension Discontinued 500 mg PO EVERY 6 HOURS NEEDED as needed for Pain Score 4-10/10 0 July 20, 2020 12:00am September 22, 2020 11:10am LORazepam 1 mg oral tablet (11 sources) Benzodiazepine Start: 08-12-2018 End: 04-29-2020 take 1 tablet by mouth three times daily as needed for anxiety Lorazepam 1 MG tablet Discontinued 1 mg PO THREE TIMES A DAY as needed for Anxiety 10 August 12, 2018 7:54pm April 29, 2020 2:59pm metFORMIN hydrochloride 500 mg oral tablet (11 sources) Biguanide Start: 05-17-2018 End: 07-16-2021 take 1 tablet by mouth at bedtime Metformin 500 mg tablet Discontinued 500 mg PO AT BEDTIME May 17, 2018 1:00am July 16, 2021 10:10am Multivitamin tablet (6 sources) Start: 07-16-2021 End: 11-12-2023 Multivitamin tablet Discontinued 1 {tbl} PO DAILY July 16, 2021 12:00am November 12, 2023 1:06pm ondansetron 4 mg disintegrating oral tablet (11 sources) Serotonin-3 Receptor Antagonist Start: 07-26-2020 End: 09-22-2020 take 1 tablet by mouth every eight hours as needed for nausea Ondansetron 4 MG tablet Discontinued 4 mg PO EVERY 8 HOURS NEEDED as needed for Nausea July 26, 2020 12:00am September 22, 2020 11:10am phentermine hydrochloride 37.5 mg oral capsule (6 sources) Sympathomimetic Amine Anorectic Start: 11-12-2023 End: 11-24-2024 take 1 capsule by mouth once daily 30 minutes after breakfast Phentermine 37.5 mg capsule Discontinued 37.5 mg PO DAILY November 12, 2023 12:00am November 24, 2024 8:03am must administer 30 minutes before or 1-2 hours after breakfast Problems Problem Classification Problem Date Documented Da te Episodic/Chronic Acute and chronic tonsillitis (16 sources) Chronic tonsillitis; Translations: [Chronic tonsillitis] 07-22-2022 Chronic Anxiety disorders (6 sources) Anxiety; Translations: [Anxiety disorder, unspecified] 07-22-2022 Chronic Hemorrhage during ; abruptio placenta; placenta previa (5 sources) Threatened miscarriage; Translations: [Threatened ] Onset: 12-13-2024 12-08-2024 Episodic Comment on above: 1 cm with yolk sac Immunizations and screening for infectious disease (5 sources) Patient encounter status; Translations: [Encounter for screening for COVID-19] Episodic Menstrual disorders (14 sources) Irregular periods; Translations: [Irregular menstruation, unspecified] Chronic Comment on above: provera challenge pr n Other complications of (4 sources) Spotting per vagina in ; Translations: [Spotting complicating , unspecified trimester] 12-07-2024 Episodic Comment on above: HCG x 2, TVUS Other complications of (1 source) Missed ; Translations: [Missed ] Onset: 12-16-2024 Episodic Other complications of (2 sources) Spotting complicating , unspecified trimester; Translations: [Spotting complicating , unspecified trimester] Onset: 12-07-2024 Episodic Other lower respiratory disease (11 sources) Snoring; Translations: [Snoring] 07-22-2022 Episodic Other screening for suspected conditions (not mental disorders or infectious disease) (1 source) Encounter for screening for malignant neoplasm of cervix; Translations: [Encounter for screening for malignant neoplasm of cervix] Onset: 12-02-2024 Episodic Other upper respiratory infections (20 sources) Acute upper respiratory infection; Translations: [Acute upper respiratory infection, unspecified] Episodic Sprains and strains (11 sources) Sprain of ankle; Translations: [Sprain of unspecified ligament of unspecified ankle, initial encounter] 08-22-2016 Episodic Results Test Name Value Interpretation Reference Range Facility Drafter (Cad) Electrical Office Visit Reporton 12-15-2024 Drafter (Cad) Electrical Office Visit Report [facility] [address] [place] [address], [address] [place] [address] OFFICE VISIT Date of Service: 12/15/24 MR#: [id number] Acct: [id number] Name: KWAN WATKINS Rep #: [id number] : 1995 Provider: Dr. Joan pace MD Age/Sex: 29/F [place] [facility] [place]: Signed Intake Vital Signs 12/08/24 12:59 12/15/24 16:10 12/15/24 16:10 Height 5 ft 5 in 5 ft 5 in 5 ft 5 in Weight: 197 lb 3 oz 197 lb 5 oz BMI 32.8 32.8 BP 127/83 H 117/81 H Intake Visit Reasons: 1 wk f/u Floodplain Manager Required: No Is patient in pain?: Yes (mild cramping - not new) Allergies No Known Allergies Allergy (Verified 12/15/24 16:10) Medications ???Medication ???Instructions ???Recorded ???Confirmed ???Type NK 11/24/24 12/15/24 History Is last menstrual period known: Yes Last Menstrual Period: 10/27/24 Post menopausal: No Patient : Yes : No PFSH Medical History Anxiety History of PCOS Fatigue Surgical History History of tonsillectomy Family History Grandfather Diabetes Heart disease Myocardial infarction Alzheimer's dementia Social History household members: spouse current occupational status: employed current occupation: [employer] Smoking Status: Never smoker alcohol intake: never substance use type: does not use what type of physical activity do you participate in: running and weight training frequency: 1-2 times per week seatbelt use: always do you feel safe at home: Yes additional social history: : Slick HPI 1 wk f/u Details: KWAN WATKINS is a 29 year old who presents for follow up of early . the GS is sitll measuring 1 1mm 5w6d but now there is a large yolk sac and 3 mm pole no fht seen. 1 cm subchorionic hematoma seen. still haing some bleeding some cramping. she denies any fevers Female Reproductive History Last Menstrual Period: 10/27/24 History 1 Elective abortions Hx Para 0 Spontaneous abortions Hx # Term Pregnancies Ectopic pregnancies Hx # Pregnancies Multiple births # of living children ROS Const Constitutional: Denies fatigue, fever(s), headache(s), increased appetite, poor appetite, weight gain or weight loss : Reports as per HPI; Denies difficulty voiding, dysuria, urinary frequency, urinary incontinence, urinary hesitancy, urinary urgency, vaginal discharge, vaginal dryness, vaginal odor or vaginal pruritus Exam Const General: cooperative, healthy appearing, comfortable, no acute distress and well developed Nutritional Appearance: average body habitus Orientation: alert General: bladder normal to palpation External Female Exam: normal external appearance and normal appearance of the urethra Urethra: normal appearance of the urethra and normal palpation Speculum Exam - Vagina: normal appearance of the vagina and vaginal bleeding Speculum Exam - Cervix: normal appearance of the cervix and nontender Bimanual Exam- Vagina Uterus: normal bimanual exam, uterine size normal, bladder normal to palpation, uterine shape normal, No tender, uterine mobility normal, consistency normal, normal palpation and non-tender Bimanual Exam- Adnexa, other: normal adnexae, adnexae mobile, no masses and normal Pelvic Support: normal OB/External Speculum: vaginal bleeding Speculum Exam: vaginal bleeding Coding Level of Care Code Off vis,est,level 4 Diagnoses Missed O02.1 Assessment and Plan Assessment and Plan (1) Missed : Status: Acute Comment: plan suction d and c thursday- repeat one more ultrasound for additional confirmation thursday Plan After discussing the patient's diagnosis and treatment plan options, patient wishes to proceed with surgical management. I have discussed with the patient the risks, benefits, and alternatives of the procedure which include but are not limited to risks of anesthesia, bleeding, infection, possible damage to bowel, bladder, or surrounding vasculature which could lead to additional surgery to evaluate any complications. Patient agrees to procedure and wishes to proceed. ACOG/uptodate references given for additional information regarding procedure. 12/15/24 1711 Date Joan Hall MD Cosigner Signature: Date (if applicable) CC: Normal [facility] Serum human chorionic gonado tropin detection for pregnancyOrdered By: Lindsay Roa on 12-09-2024 HCG ( test) Ql 2922 mIU/mL High <9 [facility] Comment on above: Gestational Age0.2-1 Week: 5-50 mIU/mL1-2 Weeks: 50-500 mIU/mL2-3 Weeks: 100-5000 mIU/mL3-4 Weeks: 500-10,000 mIU/mL4-5 Weeks:1000-50,000 mIU/mL5-6 Weeks: 10,000-100,000 mIU/mL6-8 Weeks: 15,000-200,000 mIU/mL2-3 Months:10,000-100,000 mIU/mL hCG Titer Quant., Serumon HCG QUANT. 2922 mIU/mL High <9 non-preg [facility] Comment on above: Result Comment: Gest ational Age 0.2-1 Week: 5-50 mIU/mL 1-2 Weeks: 50-500 mIU/mL 2-3 Weeks: 100-5000 mIU/mL 3-4 Weeks: 500-10,000 mIU/mL 4-5 Weeks:1000-50,000 mIU/mL 5-6 Weeks: 10,000-100,000 mIU/mL 6-8 Weeks: 15,000-200,000 mIU/mL 2-3 Months:10,000-100,000 mIU/mL Performed By: #### L 700.8000 ####[facility] [id number] [place], [address] Drafter (Cad) Electrical Office Visit Reporton 12-08-2024 Drafter (Cad) Electrical Office Visit Report [facility] [address], [address] [place] [address] OFFICE VISIT Date of Service: 12/08/24 MR#: [id number] Acct: [id number] Name: KWAN WATKINS Rep #: [id number] : 1995 Provider: Dr. Joan pace MD Age/Sex: 29/F [place] [facility] [place]: Signed Intake Vital Signs 12/07/24 10:58 12/07/24 14:52 12/08/24 12:59 Height 5 ft 5 in 5 ft 5 in 5 ft 5 in Weight: 197 lb 3 oz BMI 32.8 BP 127/83 H Intake Visit Reasons: ER f/u see US (Abnormal shaped sac), Quants. Floodplain Manager Required: No Is patient in pain?: Yes (some cramping) Allergies No Known Allergies Allergy (Verified 12/07/24 11:00) Medications ???Medication ???Instructions ???Recorded ???Confirmed ???Type NK 11/24/24 12/08/24 History Is last menstrual period known: Yes Last Menstrual Period: 10/27/24 Post menopausal: No Patient : Yes : [facility] Medical History Anxiety History of PCOS Fatigue Surgical History History of tonsillectomy Family History Grandfather Diabetes Heart disease Myocardial infarction Alzheimer's dementia Social History household members: spouse current occupational status: employed current occupation: [employer] Smoking Status: Never smoker alcohol intake: never substance use type: does not use what type of physical activity do you participate in: running and weight training frequency: 1-2 times per week seatbelt use: always do you feel safe at home: Yes additional social history: : Slick [facility] ER f/u see US (Abnormal shaped sac), Quants. Details: KWAN WATKINS is a 29 year old who presents for early bleeding in , seen in ER yesterday, having brown discharg enow, thought she was 5w6d but measuring further initially. on US now the preivous us was reviewed and the part that was measured was actually a large clot, the early GS is seen at the top of the uterus and is growing, has a small yolk sac, no pole seen. os closed. she dneies any fevers or discharge. Female Reproductive History Last Menstrual Period: 10/27/24 History 1 Elective abortions Hx Para 0 Spontaneous abortions Hx # Term Pregnancies Ectopic pregnancies Hx # Pregnancies Multiple births # of living children ROS Const Constitutional: Reports as per HPI; Denies fever(s) ENT ENT: Reports system reviewed and no additional complaints, except as documented Cardio Card: Reports system reviewed and no additional complaints, except as documented Resp Resp: Reports system reviewed and no additional complaints, except as documented GI GI: Reports as per HPI : Reports as per HPI Musc Musc: Reports system reviewed and no additional complaints, except as documented Skin Skin/Breast: Reports system reviewed and no additional complaints, except as documented Neuro Neuro: Reports system reviewed and no additional complaints, except as documented Endo Endo: Reports system reviewed and no additional complaints, except as documented Exam Const General: healthy appearing, comfortable and no acute distress HENIN Head: normal to inspection and normocephalic Neck Neck: no lymphadenopathy noted Thyroid: thyroid normal Chest Chest palpation inspection: normal inspection of the chest Resp Effort Inspection: normal respiratory effort Cardio Rate: regular rate Rhythm: regular rhythm GI Inspection: normal to inspection Palpation: soft and nontender External Female Exam: normal external appearance Speculum Exam - Vagina: normal appearance of the vagina and vaginal bleeding Bimanual Exam- Vagina Uterus: uterine shape normal and non-tender OB/External Speculum: vaginal bleeding Speculum Exam: vaginal bleeding Skin General: no rashes or lesions noted Neuro General: no focal motor deficits Extrem General: normal to inspection and no pedal edema Psych Appearance: grossly normal Coding Level of Care Code Off vis,est,level 3 Diagnoses Threatened O20.0 Assessment and Plan Assessment and Plan (1) Threatened : Status: Acute Comment: 1 cm with yolk sac Plan repeta US in 1 week 12/08/24 1604 Date Joan Duncan Signature: Date (if applicable) CC: Normal [facility] Absolute lymphocyte countOrd ered By: Nayan Barcenas on 12-07-2024 Lymphocytes Auto (Unsp spec) [#/Vol] 2.10 10*3/uL 0.83-4.51 [facility] Absolute neutrophil countOrd ered By: Nayan Barcenas on 12-07-2024 Neutrophils (Bld) [#/Vol] 4.1 10*3/uL 2.0-7.7 [facility] Anion gap in Serum or Plasma Ordered By: Nayan Barcenas on 12-07-2024 Anion gap [Moles/Vol] 10 mmol/L 5-15 [facility] Automated lymphocyte count a s percentage of total leukocytesOrdered By: Nayan Barcenas on 12-07-2024 Lymphocytes/100 WBC Auto (Unsp spec) 28.9 % 19-41 [facility] [id number] 12-07-2024 ABO and Rh group Nom (Bld) Blood group A Rh(D) positive Normal [facility] Comment on above: Performed By: #### B 882-1, L500.2500, L700.8000, L100.0100 #### [facility] [address] [place], [place], [id number] BUN/creatinine ratioOrdered By: Nayan Barcenas on 12-07-2024 Urea nitrogen/Creatinine [Mass ratio] 12.4 mg/mg 10- [facility] Basic Metabolic Profile (BMP )on 12-07-2024 Calcium [Mass/Vol] 8.6 mg/dL Normal 7.6-11.0 [facility] Comment on above: Performed By: #### B 882-1, L500.2500, L700.8000, L100.0100 #### [facility] [address] [place], [address] Basophil percentageOrdered B y: Nayan Hutchinsonrus on 12-07-2024 Basophils/100 WBC (Bld) 1.1 % High 0-1 [facility] Bilirubin Test strip Ql (U)O rdered By: Nayan Hutchinsonrus on 12-07-2024 Bilirubin Ql (U) Negative Negative [facility] CBC W/Diff, Automatedon 11-25 Absolute Lymph 2.10 X10 3/uL Normal 0.83-4.51 [facility] Comment on above: Performed By: ###Dennis Harmon 882-1, L500.2500, L700.8000, L100.0100 #### [facility] [address] [place], [address] Absolute Neut 4.1 X10 3/uL Normal 2.0-7.7 [facility] Comment on above: Performed By: ###Dennis Harmon 882-1, L500.2500, L700.8000, L100.0100 #### [facility] [address] [place], [address] Basophils/100 WBC (Bld) 1.1 % High 0-1 [facility] Comment on above: Performed By: ##Erica Hramon 882-1, L500.2500, L700.8000, L100.0100 #### [facility] [address] [place], [address] Eosinophils/100 WBC (Bld) 5.4 % High 0-5 [facility] Comment on above: Performed By: ###Dennis Harmon 882-1, L500.2500, L700.8000, L100.0100 #### [facility] [address] [place], [address] Erythrocyte distribution width (RBC) [Ratio] 13.2 % Normal 11.6-14.6 [facility] Comment on above: Performed By: #### Eden 882-1, L500.2500, L700.8000, L100.0100 #### [facility] [address] [place], [address] Hematocrit (Bld) [Volume fraction] 38.1 % Normal 37-47 [facility] Comment on above: Performed By: #### Eden 882-1, L500.2500, L700.8000, L100.0100 #### [facility] [address] [place], [address] Hemoglobin (Bld) [Mass/Vol] 12.8 g/dL Normal 12.0-15.0 [facility] Comment on above: Performed By: #### Eden 882-1, L500.2500, L700.8000, L100.0100 #### [facility] [address] [place], [address] IG% 0.400 Normal 0.0-0.9 [facility] Comment on above: Result Comment: IG% - Immature Granulocytes (promyelocytes, myelocytes and metamyelocytes) > 1% indicates that a LEFT SHIFT is Present. Performed By: #### Eden 882-1, L500.2500, L700.8000, L100.0100 #### [facility] [address] [place], [address] Lymphocytes/100 WBC (Bld) 28.9 % Normal 19-41 [facility] Comment on above: Performed By: #### Eden 882-1, L500.2500, L700.8000, L100.0100 #### [facility] [address] [place], [address] MCH (RBC) [Entitic mass] 29.8 pg Normal 27.0-32.0 [facility] Comment on above: Performed By: ###Dennis Harmon 882-1, L500.2500, L700.8000, L100.0100 #### [facility] [address] [place], [address] MCHC (RBC) [Mass/Vol] 33.6 g/dL Normal 32-36 [facility] Comment on above: Performed By: #### Eden 882-1, L500.2500, L700.8000, L100.0100 #### [facility] [address] [place], [address] MCV (RBC) [Entitic vol] 88.8 fL Normal 81-99 [facility] Comment on above: Performed By: #### Eden 882-1, L500.2500, L700.8000, L100.0100 #### [facility] [address] [place], [address] Monocytes/100 WBC (Bld) 8.5 % Normal 0-10 [facility] Comment on above: Performed By: ###Dennis Harmon 882-1, L500.2500, L700.8000, L100.0100 #### [facility] [address] [place], [address] Neutrophils/100 WBC (Bld) 55.7 % Normal 47-70 [facility] Comment on above: Performed By: ###Dennis Harmon 882-1, L500.2500, L700.8000, L100.0100 #### [facility] [address] [place], [address] Nucleated RBC (Bld) [#/Vol] 0 10*3/uL Normal 0-5 [facility] Comment on above: Performed By: ###Dennis Harmon 882-1, L500.2500, L700.8000, L100.0100 #### [facility] [address] [place], [address] Platelet mean volume (Bld) [Entitic vol] 10.9 fL Normal 6.2-12.0 [facility] Comment on above: Performed By: #### Eden 882-1, L500.2500, L700.8000, L100.0100 #### [facility] [address] [place], [address] Platelets (Bld) [#/Vol] 229 10*3/uL Normal 150-450 [facility] Comment on above: Performed By: #### Eden 882-1, L500.2500, L700.8000, L100.0100 #### [facility] [address] [place], [address] RBC (Bld) [#/Vol] 4.29 10*6/uL Normal 4.2-5.4 [facility] Comment on above: Performed By: #### Eden 882-1, L500.2500, L700.8000, L100.0100 #### [facility] [address] [place], [address] RDW SD 43.0 fl Normal 35.1-43.9 [facility] Comment on above: Performed By: #### Eden 882-1, L500.2500, L700.8000, L100.0100 #### [facility] [address] [place], [address] WBC (Bld) [#/Vol] 7.3 10*3/uL Normal 4.4-11.0 [facility] Comment on above: Performed By: #### Eden 882-1, L500.2500, L700.8000, L100.0100 #### [facility] [address] [place], [address] Carbon dioxide, total [Moles /volume] in Central venous bloodOrdered By: Nayan Barcenas on 12-07-2024 CO2 [Moles/Vol] 22.3 mmol/L 21.0-32.0 [facility] Chloride assayOrdered By: Kan Barcenas on 12-07-2024 Chloride [Moles/Vol] 105 mmol/L 98-108 [facility] Emergency Department Summary on 12-07-2024 Emergency Department Summary [facility] Medical Records Department [address] [place] [address] Emergency Department Summary 12/07/24 MR#: [id number] Acct: [id number] Name: KWAN WATKINS Rep #: [id number] : 1995 29 From: Nayan Barcenas DO PCP: Dr. Myra Gayle, DO Status:REG ER Location: ED HPI HPI - Female History of Present Illness Chief Complaint: Vag Bld, Preg PFSH PFSH Medical History Anxiety History of PCOS Fatigue Home Medications ???Medication ???Instructions ???Recorded ???Last Taken ???Type NK 11/24/24 Unknown History Allergy/AdvReac Type Severity Reaction Status Date / Time No Known Allergies Allergy Verified 12/07/24 11:00 Family History Grandfather Diabetes Heart disease Myocardial infarction Alzheimer's dementia Surgical History History of tonsillectomy Social History (Updated 11/24/24 @ 08:04 by Susana Negrete) household members: spouse current occupational status: employed current occupation: [employer] Smoking Status: Never smoker alcohol intake: never substance use type: does not use what type of physical activity do you participate in: running and weight training frequency: 1-2 times per week seatbelt use: always do you feel safe at home: Yes additional social history: : Slick EXAM Physical Exam Const Vital Signs: 12/07/24 10:58 12/07/24 12:58 12/07/24 14:06 Temperature 98 F Temperature Source Oral Pulse Rate 87 78 71 Respiratory Rate 15 16 19 H Blood Pressure 143/86 H 118/78 114/68 Blood Pressure Mean 105 91 83 Pulse Ox 100 98 100 Oxygen Delivery Method Room Air Room Air Room Air MDM MDM MDM Narrative Medical decision making narrative: HISTORY OF PRESENT ILLNESS: Chief complaint: Vaginal bleeding, early 29-year-old female history of anxiety, PCOS, fatigue presents with bleeding in early . States he is approximate 6 weeks . Last period was in October. Notes is her first she is a G1, P0. Denies lightheadedness, dizziness or syncope. Notes some abdominal cramping but denies abdominal pain at this time. No history of miscarriages. No fertility treatments. REVIEW OF SYSTEMS: Pertinent positives: Vaginal bleeding, abdominal cramping Pertinent negatives: As per HPI PHYSICAL EXAM: Nursing triage notes reviewed, Vital signs reviewed Constitutional: please see [facility] HENT: MMM Eyes: Pupils equal round and reactive to light, Extraocular muscles intact Neck: No stridor, no JVD, full neck ROM Lungs: Clear to auscultation, No wheezing or rales. No increased work of breathing, no conversational dyspnea, no accessory muscle use, no nasal flaring. No respiratory distress noted Heart: Regular rate and rhythm, No murmurs, No rubs and No gallops, 2+ distal pulses (radial, femoral, posterior tibial) in all extremities Abdomen: Soft, there is no tenderness, rigidity, rebound or guarding, no obvious peritoneal signs, no palpable pulsatile abdominal masses, no auscultated abdominal bruit : No CVAT Extremities: No edema Neuro: No new focal neurological deficits, cranial nerves II through XII intact, 5/5 strength in all present extremities. Intact sensation to light touch in all present extremities, 2+ reflexes bilateral patella tendons. Skin: No rash or lesions noted MEDICAL DECISION MAKING: Chief Complaint: please see HPI External records reviewed: Reviewed prior imaging studies: No recent advanced ultrasound of the abdomen noted. Factors affecting care: As per HPI Social determinants of health: none History obtained from others: none Consults: none [facility] Narrative: The patient was initially hemodynamically stable, afebrile and nontoxic-appearing. Abdominal exam benign. I considered the following differential diagnosis: Ectopic , miscarriage, bleeding in early I obtained a broad lab and imaging workup to further determine if the patient was suffering from a life-threatening etiology. ALL IMAGES (IF OBTAINED) HAVE BEEN PERSONALLY REVIEWED AND INTERPRETED BY MYSELF. CBC without leukocytosis, severe anemia or thrombocytopenia BMP without evidence of significant electrolyte abnormalities, no anion gap, no acute kidney injury. Beta hCG 2500 consistent with early Urinalysis shows no evidence of urinary inflammation suggestive of UTI Patient is a positive no need for RhoGAM First trimester ultrasound showed an abnormal gestational sac no heartbeat but was not definitive for ectopic or miscarriage. The synthesis of the patient's history, physical exam, labs images suggest threatened miscarriage. No def (more content not included)... Normal [facility] Eosinophil percentageOrdered By: Nayan Barcenas on 12-07-2024 Eosinophils/100 WBC (Bld) 5.4 % High 0-5 [facility] Erythrocyte distribution wid th ratioOrdered By: Nayan Barcenas on 12-07-2024 Erythrocyte distribution width (RBC) [Ratio] 13.2 % 11.6-14.6 [facility] Erythrocyte distribution wid th standard deviationOrdered By: Nayan Barcenas on 12-07-2024 Erythrocyte distribution width (RBC) [Ratio] 43.0 fl 35.1-43.9 [facility] Glomerular filtration rate ( GFR) estimation/1.73 sq m using serum, plasma, or whole bOrdered By: Nayan Barcenas on 12-07-2024 GFR/1.73 sq M.predicted among non-blacks MDRD (S/P/Bld) [Vol rate/Area] 94 mL/min/{1.73_m2} >60 [facility] Comment on above: mL/min/1.73m2 CKD-EP I Creatinine Equation (2020) Hematocrit Auto (Bld) [Volum e fraction]Ordered By: Nayan Barcenas on 12-07-2024 Hematocrit (Bld) [Volume fraction] 38.1 % 37-47 [facility] Hemoglobin measurementOrdere d By: Nayan Barcenas on 12-07-2024 Hemoglobin (Bld) [Mass/Vol] 12.8 g/dL 12.0-15.0 [facility] Immature granulocytes/100 WB C Auto (Bld)Ordered By: Nayan Barcenas on 12-07-2024 Immature granulocytes/100 WBC (Bld) 0.400 % 0.0-0.9 [facility] Comment on above: IG% - Immature Granu locytes (promyelocytes, myelocytes and metamyelocytes) > 1% indicates that a LEFT SHIFT is Present. Ketones Test strip Ql (U)Ord ered By: Nayan Barcenas on 12-07-2024 Ketones Ql (U) Negative Negative [facility] MCV (mean corpuscular volume ) determinationOrdered By: Nayan Barcenas on 12-07-2024 MCV (RBC) [Entitic vol] 88.8 fL 81-99 [facility] Mean corpuscular hemoglobin (MCH) determinationOrdered By: Nayan Barcenas on 12-07-2024 MCH (RBC) [Entitic mass] 29.8 pg 27.0-32.0 [facility] Mean corpuscular hemoglobin concentration (MCHC) determinationOrdered By: Nayan Barcenas on 12-07-2024 MCHC (RBC) [Mass/Vol] 33.6 g/dL 32-36 [facility] Mean platelet volume determi nationOrdered By: Nayan Barcenas on 12-07-2024 Platelet mean volume (Bld) [Entitic vol] 10.9 fL 6.2-12.0 [facility] Microscopic analysis of urin e for red blood cells (RBC)Ordered By: Nayan Barcenas on 12-07-2024 Microscopic analysis of urine for red blood cells (RBC) 0 SEEN /hpf 0-5 [facility] Monocyte percentageOrdered B y: Nayan Barcenas on 12-07-2024 Monocytes/100 WBC (Bld) 8.5 % 0-10 [facility] Mucus LM Ql (Urine sed)Order ed By: Nayan Barcenas on 12-07-2024 Mucus Ql (Urine sed) 0 SEEN /hpf [facility] Neutrophil percentageOrdered By: Nayan Barcenas on 12-07-2024 Neutrophils/100 WBC (Bld) 55.7 % 47-70 [facility] Nitrite Test strip Ql (U)Ord ered By: Nayan Barcenas on 12-07-2024 Nitrite Ql (U) Negative Negative [facility] Nucleated red blood cell per centageOrdered By: Nayan Barcenas on 12-07-2024 Nucleated RBC/100 WBC (Bld) [Ratio] 0 % 0-5 [facility] Platelet countOrdered By: Kan Barcenas on 12-07-2024 Platelets (Bld) [#/Vol] 229 10*3/uL 150-450 [facility] Potassium measurement (mass/ volume)Ordered By: Nayan Barcenas on 12-07-2024 Potassium (Unsp spec) [Mass/Vol] 4.2 mmol/L 3.3-5.1 [facility] Protein Test strip Ql (U)Ord ered By: Nayan Barcenas on 12-07-2024 Protein Ql (U) Negative Negative [facility] RBC Auto (Bld) [#/Vol]Ordere d By: Nayan Barcenas on 12-07-2024 RBC (Bld) [#/Vol] 4.29 10*6/uL 4.2-5.4 [facility] Serum creatinine measurement (mass/volume)Ordered By: Nayan Barcenas on 12-07-2024 Creatinine [Mass/Vol] 0.86 mg/dL 0.70-1.20 [facility] Serum glucose measurement (m ass/volume)Ordered By: Nayan Barcenas on 12-07-2024 Glucose [Mass/Vol] 101 mg/dL High 70-99 [facility] Serum human chorionic gonado tropin detection for pregnancyOrdered By: Nayan Barcenas on 12-07-2024 HCG ( test) Ql 2576 mIU/mL High <9 [facility] Comment on above: Gestational Age0.2-1 Week: 5-50 mIU/mL1-2 Weeks: 50-500 mIU/mL2-3 Weeks: 100-5000 mIU/mL3-4 Weeks: 500-10,000 mIU/mL4-5 Weeks:1000-50,000 mIU/mL5-6 Weeks: 10,000-100,000 mIU/mL6-8 Weeks: 15,000-200,000 mIU/mL2-3 Months:10,000-100,000 mIU/mL Serum or plasma calcium silver urement (mass/volume)Ordered By: Nayan Barcenas on 12-07-2024 Calcium [Mass/Vol] 8.6 mg/dL 7.6-11.0 [facility] Serum or plasma urea nitroge n measurement (mass/volume)Ordered By: Nayan Barcenas on 12-07-2024 Urea nitrogen [Mass/Vol] 11 mg/dL 4-19 [facility] Sodium levelOrdered By: Cedric Barcenas on 12-07-2024 Sodium [Moles/Vol] 137 mmol/L 133-145 [facility] Squamous epithelial cells de tection in urine sediment by light microscopyOrdered By: Nayan Barcenas on 12-07-2024 Epithelial cells.squamous LM Ql (Urine sed) 0 SEEN /hpf 5-10 [facility] Transvaginal w/Preg USon Transvaginal w/Preg US [facility] [address] [place] [address] Transvaginal w/Preg US MR#: [id number] Acct: [id number] Name: KWAN WATKINS Rep #: [id number] : 1995 F 29 From: Dio hoang MD PCP: Dr. Myra Gayle DO Status: REG ER Study: Transvaginal w/Preg US Date of Exam: 12/07/24 Exam# [id number] Ordering Dr: Nayan Barcenas DO PROCEDURE: TRANSVAGINAL W/PREG US 12/07/2024 REASON FOR EXAM: VAGINAL BLEEDING, EARLY TECHNIQUE: TRANSVAGINAL W/PREG US COMPARISON: None FINDINGS: Comments: LMP: November 06, 2024. Number of Gestational Sacs: 1 Gestational Sac Shape: Irregular Number of Fetuses: 1 Heart Rate: Not detected at this time. ( Yolk Sac: 5.2 mm Placenta: Presently not well-visualized The tab Uterine Abnormalities: Maternal uterus is unremarkable. Ovaries / Adnexa: Both maternal ovaries are visualized and unremarkable. DIMENSIONS: Parameter Measurement / EGA Laie Rump Length: 8.3 mm/6 weeks and 6 days Gestational Sac: 2.43 cm/7 weeks and 3 days Yolk Sac: 5.2 mm/ ESTIMATED GESTATIONAL AGE: By Ultrasound: 7 weeks and 1 day By LMP: 5 weeks and 6 days ESTIMATED DATE OF DELIVERY: By Ultrasound: July 25, 2025 By LMP: August 03, 2025 US/Transvaginal w/Preg US IMPRESSION: Abnormal appearance of the gestational sac. No cardiac activity noted at this time. Follow-up recommended. Reading Location: [id number] CC: Dr. Myra Gayle DO; Dr. Nayan Narinder, DO Relationship Counselor: Signed Normal [facility] Urinalysis, Completeon 12-07 BACTERIA 0 SEEN Normal None Seen [facility] Comment on above: Order Comment: ROMY CTOR TO SPECIFY Performed By: #### L 400.0001 #### [facility] [address] [place], [address] EPI,SQUAMOUS 0 SEEN Normal 5-10 [facility] Comment on above: Order Comment: ROMY CTOR TO SPECIFY Performed By: #### L 400.0001 #### [facility] [address] [place], [address] Mucus Ql (Urine sed) 0 SEEN Normal [facility] Comment on above: Order Comment: ROMY CTOR TO SPECIFY Performed By: #### L 400.0001 #### [facility] [address] [place], [address] RBC 0 SEEN Normal 0-5 [facility] Comment on above: Order Comment: ROMY CTOR TO SPECIFY Performed By: #### L 400.0001 #### [facility] [address] [place], [address] WBC 0 SEEN Normal 0-5 [facility] Comment on above: Order Comment: ROMY CTOR TO SPECIFY Performed By: #### L 400.0001 #### [facility] [address] [place], [address] Urine clarityOrdered By: Mamadou Barcenas on 12-07-2024 Clarity (U) Clear Clear [facility] Urine color determinationOrd ered By: Nayan Barcenas on 12-07-2024 Color (U) Straw Yellow [facility] Urine glucose detectionOrder ed By: Nayan Barcenas on 12-07-2024 Glucose Ql (U) Normal mg/dl Normal [facility] Urine leukocyte esterase det ection by dipstickOrdered By: Nayan Barcenas on 12-07-2024 Leukocyte esterase Test strip Ql (U) Negative Negative [facility] Urine pHOrdered By: Nayan reed on 12-07-2024 pH (U) 7.0 [pH] 5.0 - 8.0 [facility] Urine sediment bacteria coun t by microscopy (number/high power field)Ordered By: Nayan Barcenas on 12-07-2024 Bacteria LM.HPF (Urine sed) [#/Area] 0 /[HPF] None Seen [facility] Urine specific gravity measu rementOrdered By: Nayan Barcenas on 12-07-2024 Specific gravity (U) [Rel density] 1.010 1.002-1.030 [facility] Urine urobilinogen measureme ntOrdered By: Nayan Barcenas on 12-07-2024 Urobilinogen Ql (U) Normal mg/dl Normal [facility] White blood cell (WBC) count Ordered By: Nayan Barcenas on 12-07-2024 WBC (Bld) [#/Vol] 7.3 10*3/uL 4.4-11.0 [facility] White blood cell countOrdere d By: Nayan Barcenas on 12-07-2024 White blood cell count 0 SEEN /hpf 0-5 [facility] hCG Titer Quant., Serumon HCG QUANT. 2576 mIU/mL High <9 non-preg [facility] Comment on above: Result Comment: Gest ational Age 0.2-1 Week: 5-50 mIU/mL 1-2 Weeks: 50-500 mIU/mL 2-3 Weeks: 100-5000 mIU/mL 3-4 Weeks: 500-10,000 mIU/mL 4-5 Weeks:1000-50,000 mIU/mL 5-6 Weeks: 10,000-100,000 mIU/mL 6-8 Weeks: 15,000-200,000 mIU/mL 2-3 Months:10,000-100,000 mIU/mL Performed By: #### B 882-1, L500.2500, L700.8000, L100.0100 #### [facility] [address] [place], [address] PAP I-G w/rfx hrHPV-Aptimaon 11-28-2024 ADEQ Comment Normal . [facility] Comment on above: Order Comment: Speci men Comment: [id number] Specimen Comment: No. of containers..01 ThinPrep Vial Result Comment: Sati sfactory for evaluation. No endocervical component is identified. Performed By: #### L 7400.0353 #### [facility] [address] [place], [address] COMM . Normal . [facility] Comment on above: Order Comment: Speci men Comment: [id number] Specimen Comment: No. of containers..01 ThinPrep Vial Performed By: #### L 7400.0353 #### [facility] [address] [place], [address] COMMENT Comment Normal . [facility] Comment on above: Order Comment: Speci men Comment: [id number] Specimen Comment: No. of containers..01 ThinPrep Vial Result Comment: This liquid based ThinPrep(R) pap test was screened with the use of an image guided system. Performed By: #### L 7400.0353 #### [facility] [address] [place], [address] DIAG Comment Normal . [facility] Comment on above: Order Comment: Speci men Comment: [id number] Specimen Comment: No. of containers..01 ThinPrep Vial Result Comment: NEGA TIVE FOR INTRAEPITHELIAL LESION OR MALIGNANCY. Performed By: #### L 7400.0353 #### [facility] [address] [place], [address] HPV RFLX Comment Normal . [facility] Comment on above: Order Comment: Speci men Comment: [id number] Specimen Comment: No. of containers..01 ThinPrep Vial Result Comment: The HPV DNA reflex criteria were not met with this specimen result therefore, no HPV testing was performed. Performed at: [address] [id number] Senior Outside Sales Representative: Brissa Myers MD, Phone: [phone] Performed By: #### L 7400.0353 #### [facility] [address] [place], [address] PAPSMR Comment Normal . [facility] Comment on above: Order Comment: Speci men Comment: [id number] Specimen Comment: No. of containers..01 ThinPrep Vial Result Comment: The Pap smear is a screening test designed to aid in the detection of premalignant and malignant conditions of the uterine cervix. It is not a diagnostic procedure and should not be used as the sole means of detecting cervical cancer. Both false-positive and false-negative reports do occur. Performed By: #### L 7400.0353 #### [facility] [address] [place], [address] PERFORM Comment Normal . [facility] Comment on above: Order Comment: Speci men Comment: [id number] Specimen Comment: No. of containers..01 ThinPrep Vial Result Comment: Rex Gonzales Department Editor (ASCP) Performed By: #### L 7400.0353 #### [facility] [address] [place], [address] Cervical or vagninal specime n microscopic examination by cytology stain (reported asOrdered By: Helena Ruiz on 11-24-2024 Cytology report Cyto stain Doc (Cvx/Vag) Comment . [facility] Comment on above: The Pap smear is a s creening test designed to aid in thedetection of premalignant and malignant conditions of theuterine cervix. It is not a diagnostic procedure andshould not be used as the sole means of detecting cervicalcancer. Both false-positive and false-negative reports dooccur. Laboratory - CytologyOrdered By: Helena Ruiz on 11-24-2024 Department Editor Cyto stain Nom (Cvx/Vag) [ID] Comment . [facility] Comment on above: Don Gonzales Cyto logist (ASCP) Laboratory - Miscellaneous t estsOrdered By: Helena Ruiz on 11-24-2024 Service comment (Unsp spec) [Interp] . . [facility] No Panel InformationOrdered By: Helena Ruiz on 11-24-2024 Pap Smear Specimen Adequacy Comment . [facility] Comment on above: Satisfactory for yeny luation. No endocervical component is identified. Drafter (Cad) Electrical Office Visit Reporton 11-24-2024 Drafter (Cad) Electrical Office Visit Report [facility] [address], [address] [place] [address] OFFICE VISIT Date of Service: 11/24/24 MR#: [id number] Acct: [id number] Name: KWAN WATKINS Rep #: [id number] : 1995 Provider: MAGDI Savage ams Age/Sex: 29/F [place] [facility] [place] Signed Intake Vital Signs 11/12/23 13:07 11/24/24 08:01 Height 5 ft 5 in 5 ft 5 in Weight: 196 lb 4 oz BMI 32.6 BP 108/73 Intake Visit Reasons: Annual ([employer]) 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 Is patient in pain?: No Allergies No Known Allergies Allergy (Verified 11/24/24 08:00) Medications ???Medication ???Instructions ???Recorded ???Confirmed ???Type NK 11/24/24 11/24/24 History Is last menstrual period known: Yes Last Menstrual Period: 10/28/24 Post menopausal: No Patient : No : No PFSH Medical History Anxiety History of PCOS Fatigue Surgical History History of tonsillectomy Family History Grandfather Diabetes Heart disease Myocardial infarction Alzheimer's dementia Social History (Updated 11/24/24 @ 08:04 by Susana Negrete) household members: spouse current occupational status: employed current occupation: [employer] Smoking Status: Never smoker alcohol intake: never substance use type: does not use what type of physical activity do you participate in: running and weight training frequency: 1-2 times per week seatbelt use: always do you feel safe at home: Yes additional social history: : Slick History 0 Elective abortions Hx Para Spontaneous abortions Hx # Term Pregnancies Ectopic pregnancies Hx # Pregnancies Multiple births # of living children HPI Encounter for routine gynecological examination Details: KWAN WATKINS is a 29 year old who presents for annual exam. Would like to TTC with in the next year. discussed timed intercourse. Last PAP: 06/2021 History of abnormal PAP: No Last mammogram: Due at 41yrs History of abnormal mammogram: [] Colon cancer screening: Due at 46yrs Other preventative health care screenings: PCP - Dr Gayle Female Reproductive History Last Menstrual Period: 10/28/24 Cycle Length: 21-35 Bleeding Duration: 4 Questions: metrorrhagia: No, sexually active: Yes, dyspareunia: No and PCB: No Menopausal Symptoms: No hot flashes, No night sweats, No weight change, No mood changes, No difficulty concentrating, No sleep problems and No change in libido ROS Const Constitutional: Reports system reviewed and no additional complaints, except as documented; Denies night sweats Cardio Card: Reports system reviewed and no additional complaints, except as documented Resp Resp: Reports system reviewed and no additional complaints, except as documented GI GI: Reports system reviewed and no additional complaints, except as documented : Reports system reviewed and no additional complaints, except as documented; Denies difficulty voiding, dysuria, hot flashes or urinary frequency Skin Skin/Breast: Reports system reviewed and no additional complaints, except as documented Neuro Neuro: Reports system reviewed and no additional complaints, except as documented Psych Psych: Reports system reviewed and no additional complaints, except as documented; Denies anhedonia, anxiety, change in libido, depression or difficulty concentrating Exam Const General: cooperative, healthy appearing, comfortable and no acute distress Orientation: alert, awake and oriented x3 Neck Neck: normal visual inspection and full ROM Thyroid: thyroid normal Chest Breast inspection: normal inspection of the breasts and normal inspection of the axillae Breast palpation: normal palpation of the breasts and normal palpation of the axillae Resp Effort Inspection: normal respiratory effort, able to speak in complete sentences and symmetric chest movement GI Inspection: normal to inspection Palpation: soft Rectal Exam: visual inspection normal External Female Exam: normal external appearance and normal appearance of the urethra Urethra: normal appearance of the urethra Speculum Exam - Vagina: normal appearance of the vagina and normal vaginal discharge Speculum Exam - Cervix: normal appearance of the cervix and nontender Bimanual Exam- Vagina Uterus: normal bimanual exam, normal palpation, uterine size normal, No tender and non-tender Bimanual Exam- Adnexa, other: normal Pelvic Support: normal Skin General: no rashes or lesions noted Neuro General: patient alert, patient awake and patient oriented x3 Cognition: normal cognition Speech: speech normal G (more content not included)... Normal [facility] Basophil percentageon 2021 Bilirubin [Mass/Vol] 0.20 mg/dL 0.20-1.00 [facility] Work Phone: Comment on above: For patients on eltr ombopag therapy, use of [employer] TBIL is not recommended. Chloride [Moles/Vol] 107 mmol/L 98-107 [facility] Work Phone: Cholesterol [Mass/Vol] 156 mg/dL <200 [facility] Work Phone: Comment on above: <200 mg/dL Desirable 200-240 mg/dL Borderline >240 mg/dL High Risk Glucose [Mass/Vol] 90 mg/dL 74-106 [facility] Work Phone: Potassium [Moles/Vol] 3.9 mmol/L 3.5-5.1 [facility] Work Phone: Protein [Mass/Vol] 7.7 g/dL 6.4-8.2 [facility] Work Phone: Sodium [Moles/Vol] 138 mmol/L 136-145 [facility] Work Phone: Triglyceride [Mass/Vol] 239 mg/dL <199 [facility] Work Phone: Comment on above: The drugs N-Acetylcy steine and Metamizole may falsely depress this assay.Serum Triglycerides Reference Interval Normal <150 mg/dL Borderline high 150 - 199 mg/dL High 200 - 499 mg/dL Very High > or = 500 mg/dL Laboratory - Chemistry and C hemistry - challengeon 09-11-2021 ALP [Catalytic activity/Vol] 52 U/L 45-117 [facility] Work Phone: ALT [Catalytic activity/Vol] 81 U/L 13-56 [facility] Work Phone: CO2 [Moles/Vol] 26.0 mmol/L 21.0-32.0 [facility] Work Phone: Globulin (S) [Mass/Vol] 3.9 g/dL 2.2-4.2 [facility] Work Phone: Urea nitrogen/Creatinine [Mass ratio] 16.8 mg/mg 10-20 [facility] Work Phone: No Panel Informationon 09-11 Estimated GFR (MDRD) Amer 92 mL/min >60 [facility] Work Phone: Comment on above: GFR Calc Estimated GFR (MDRD) Non-Af Amer 76 mL/min >60 [facility] Work Phone: Comment on above: Non- GFR Calc Serum or plasma albumin silver urement (mass/volume)on 09-11-2021 Albumin [Mass/Vol] 3.8 g/dL 3.2-5.0 [facility] Work Phone: Serum or plasma albumin/glob ulin mass ratioon 09-11-2021 Albumin/Globulin [Mass ratio] 1.0 {ratio} 0.9-2.4 [facility] Work Phone: Serum or plasma calcium silver urement (mass/volume)on 09-11-2021 Calcium [Mass/Vol] 8.6 mg/dL 8.5-10.1 [facility] Work Phone: Serum or plasma cholesterol in HDL measurement (mass/volume)on 09-11-2021 Cholesterol in HDL [Mass/Vol] 39 mg/dL >40 [facility] Work Phone: Comment on above: The drugs N-Acetylcy steine and Metamizole may falsely depress this assay. Reference Range HDL <40 mg/dL Low HDL Cholesterol HDL >or= 60 mg/dL High HDL Cholesterol Serum or plasma cholesterol in VLDL measurement (mass/volume)on 09-11-2021 Cholesterol in VLDL [Mass/Vol] 48 mg/dL 5-40 [facility] Work Phone: Serum or plasma creatinine m easurement (mass/volume)on 09-11-2021 Creatinine [Mass/Vol] 0.95 mg/dL 0.55-1.02 [facility] Work Phone: Comment on above: The validity of the calculated GFR & GFRAA in patients over 70 years has not been determined. Clinical correlation is essential. Serum or plasma low density lipoprotein (LDL) cholesterol measurement (mass/volume)on 09-11-2021 Cholesterol in LDL [Mass/Vol] 69 mg/dL 0-130 [facility] Work Phone: Serum or plasma urea nitroge n measurement (mass/volume)on 09-11-2021 Urea nitrogen [Mass/Vol] 16 mg/dL 7-18 [facility] Work Phone: Thin prep Papanicolaou smear with manual screeningon 09-11-2021 Thin prep Papanicolaou smear with manual screening 37 U/L 15-37 [facility] Work Phone: Thin prep Papanicolaou smear with manual screening 5 5-15 [facility] Work Phone: Whole blood hemoglobin A1c/t otal hemoglobin ratio (mass fraction)on 09-11-2021 HbA1c (Bld) [Mass fraction] 5.3 % 3.8-5.6 [facility] Work Phone: Comment on above: Normal < 5.7 % Predi abetic 5.7 - 6.4 % Diabetic >or= 6.5 % Please note range changes. Cervical or vagninal specime n microscopic examination by cytology stain (reported ason 07-16-2021 Cytology report Cyto stain Doc (Cvx/Vag) Comment . [facility] Work Phone: Comment on above: The Pap smear is a s creening test designed to aid in thedetection of premalignant and malignant conditions of theuterine cervix. It is not a diagnostic procedure andshould not be used as the sole means of detecting cervicalcancer. Both false-positive and false-negative reports dooccur. Chlamydia trachomatis rRNA d etection by probe and target amplification methodon 07-16-2021 C. trachomatis rRNA DANIA+probe Ql (Unsp spec) Negative Negative [facility] Work Phone: Laboratory - Cytologyon 06-26 Department Editor Cyto stain Nom (Cvx/Vag) [ID] Comment . [facility] Work Phone: Comment on above: Shady Joseph chnologist (ASCP) Laboratory - Microbiology an d Antimicrobial susceptibilityon 07-16-2021 N. gonorrhoeae DNA DANIA+probe Ql (Unsp spec) Negative Negative [facility] Work Phone: Comment on above: Performed at: - [address] [facility] [id number] Director: Brissa Myers MD, Phone: [phone] Laboratory - Miscellaneous t estson 07-16-2021 Service comment (Unsp spec) [Interp] Comment . [facility] Work Phone: Comment on above: This liquid based Th inPrep(R) pap test was screened withthe use of an image guided system. Service comment (Unsp spec) [Interp] . . [facility] Work Phone: No Panel Informationon 07-16 Human Papillomavirus Screen Comment . [facility] Work Phone: Comment on above: The HPV DNA reflex c [place] were not met with this specimenresult therefore, no HPV testing was performed.Performed at: - [facility] [id number] Director: Brissa Myers MD, Phone: [phone] Pathology report final diagnosis Narrative Comment . [facility] Work Phone: Comment on above: NEGATIVE FOR INTRAEP ITHELIAL LESION OR MALIGNANCY. Vital Signs Date Time Vital Sign Value Performing Clinician Kerry jay 12-15-2024 16:10-0400 Body height 165.[address] Myra Gayle DO Work Phone: [facility] 12-15-2024 16:10-0400 Body mass index (BMI) [Ratio] 32.8 kg/m2 Dr. Myra Gayle DO Work Phone: [facility] 12-15-2024 16:10-0400 Body weight 89.[address] Myra Gayle DO Work Phone: [facility] 12-15-2024 16:10-0400 Diastolic blood pressure 81 mm[Hg] Dr. Myra Gayle DO Work Phone: [facility] 12-15-2024 16:10-0400 Systolic blood pressure 117 mm[Hg] Dr. Myra Gayle DO Work Phone: [facility] 12-08-2024 12:59-0400 Body height 165.[address] Myra Gayle DO Work Phone: [facility] 12-08-2024 12:59-0400 Body mass index (BMI) [Ratio] 32.8 kg/m2 Dr. Myra Gayle DO Work Phone: [facility] 12-08-2024 12:59-0400 Body weight 89.[address] Myra Gayle DO Work Phone: [facility] 12-08-2024 12:59-0400 Diastolic blood pressure 83 mm[Hg] Dr. Myra Gayle DO Work Phone: [facility] 12-08-2024 12:59-0400 Systolic blood pressure 127 mm[Hg] Dr. Myra Gayle DO Work Phone: [facility] 12-07-2024 14:57-0400 Body temperature 97.9 [degF] Dr. Myra Gayle DO Work Phone: [facility] 12-07-2024 14:57-0400 Diastolic blood pressure 70 mm[Hg] Dr. Myra Gayle DO Work Phone: [facility] 12-07-2024 14:57-0400 Heart rate 74 /min Dr. Myra Gayle DO Work Phone: [facility] 12-07-2024 14:57-0400 Respiratory rate 15 /min Dr. Myra Gayle DO Work Phone: [facility] 12-07-2024 14:57-0400 SaO2% (BldA) [Mass fraction] 100 % Dr. Myra Gayle DO Work Phone: [facility] 12-07-2024 14:57-0400 Systolic blood pressure 117 mm[Hg] Dr. Myra Gayle DO Work Phone: [facility] 12-07-2024 10:58-0400 Body height 165.[address] Myra Gayle DO Work Phone: [facility] 12-07-2024 10:58-0400 Body mass index (BMI) [Ratio] 33.1 kg/m2 Dr. Myra Gayle DO Work Phone: [facility] 12-07-2024 10:58-0400 Body weight 90.[address] Myra Gayle DO Work Phone: [facility] 11-24-2024 08:01-0400 Body height 165.[address] Myra Gayle DO Work Phone: [facility] 11-24-2024 08:01-0400 Body mass index (BMI) [Ratio] 32.6 kg/m2 Dr. Myra Gayle DO Work Phone: [facility] 11-24-2024 08:01-0400 Body weight 89.[address] Myra Gayle DO Work Phone: [facility] 11-24-2024 08:01-0400 Diastolic blood pressure 73 mm[Hg] Dr. Myra Gayle DO Work Phone: [facility] 11-24-2024 08:01-0400 Systolic blood pressure 108 mm[Hg] Dr. Myra Gayle DO Work Phone: [facility] 12-31-2021 16:51-0400 Body height 165.1 cm [facility] Work Phone: 12-31-2021 16:51-0400 Body weight 92.53 kg [facility] Work Phone: 11-26-2021 08:14-0400 Body weight 91.89 kg [facility] Work Phone: 11-07-2021 15:24-0400 Body height 165.1 cm [facility] Work Phone: 11-07-2021 15:24-0400 Body weight 91.62 kg [facility] Work Phone: 10-10-2021 07:59-0400 Body height 165.[address] Myra Gayle Work Phone: [facility] Work Phone: 10-10-2021 07:59-0400 Body weight 92.[address] Myra Gayle Work Phone: [facility] Work Phone: 09-11-2021 16:13-0400 Body height 165.[address] Myra Gayle Work Phone: [facility] Work Phone: 09-11-2021 16:13-0400 Body weight 94.[address] Myra Gayle Work Phone: [facility] Work Phone: 07-16-2021 10:13-0400 Body mass index (BMI) [Ratio] 34.2 kg/m2 Dr. Myra Gayle Work Phone: [facility] Work Phone: 07-16-2021 10:13-0400 Body weight 93.[address] Myra Gayle Work Phone: [facility] Work Phone: 07-16-2021 10:13-0400 Diastolic blood pressure 74 mm[Hg] Dr. Myra Gayle Work Phone: [facility] Work Phone: 07-16-2021 10:13-0400 Systolic blood pressure 106 mm[Hg] Dr. Myra Gayle Work Phone: [facility] Work Phone: 07-16-2021 10:13-0400 Body height 165.[address] Myra Gayle Work Phone: [facility] Work Phone: 07-16-2021 10:13-0400 Body mass index (BMI) [Ratio] 34.2 kg/m2 Dr. Myra Gayle Work Phone: [facility] Work Phone: 07-16-2021 10:13-0400 Body weight 93.[address] Myra Gayle Work Phone: [facility] Work Phone: 07-16-2021 10:13-0400 Diastolic blood pressure 74 mm[Hg] Dr. Myra Gayle Work Phone: [facility] Work Phone: 07-16-2021 10:13-0400 Systolic blood pressure 106 mm[Hg] Dr. Myra Gayle Work Phone: [facility] Work Phone: Encounters Encounter Date Encounter Type Care Provider Facility Start: 12-23-2024 ambulatory Myra Gayle Facility:[facility] Start: 12-19-2024 ambulatory Joan Payne lity:[facility] Start: 12-16-2024 Encounter for other preprocedural examination Joan Hall [facility] Start: 12-15-2024 End: 12-15-[address] Joan Hall MD -[facility] Work Phone: Start: 12-15-2024 End: 12-15-[address] Myra Gayle DO Work Phone: -[facility] Start: 12-09-2024 End: 12-09-[address] Myra Gayle DO Work Phone: -Laboratory Start: 12-09-2024 End: 12-09-[address] Joan Hall MD -Laboratory Work Phone: Start: 12-08-2024 End: 12-08-[address] Joan Hall MD -[facility] Work Phone: Start: 12-08-2024 End: 12-09-[address] Myra Gayle DO Work Phone: -[facility] Start: 12-07-2024 End: 12-07-2024 Emergency department patient visit Dr. Myra Gayle DO Work Phone: -Emergency Department Work Phone: Start: 11-24-2024 End: 11-24-[address] Myra Gayle DO Work Phone: -Laboratory Specimen Start: 11-24-2024 End: 11-24-2024 Patient encounter procedure Helena ROWE -Laboratory Specimen Work Phone: Start: 11-24-2024 Encounter for gynecological examination (general) (routine) without abnormal findings Helena Ruiz [facility] Start: 11-24-2024 End: 11-24-2024 Patient encounter procedure Helena ROWE -[facility] Work Phone: Start: 11-24-2024 End: 11-24-2024 Patient encounter status Helena Ruiz [facility] Start: 11-24-2024 End: 11-24-[address] Myra Gayle DO Work Phone: -[facility] Start: 11-24-2024 End: 11-24-2024 ambulatory Myra Gayle Facility:[facility] Start: 12-31-2021 End: 01-24-2022 ambulatory [facility] Work Phone: Start: 12-31-2021 End: 01-24-[facility]22 [facility] Start: 11-26-2021 End: 12-25-2021 [facility] Start: 11-07-2021 End: 11-24-2021 [facility] Start: 10-10-2021 End: 10-24-[address] [facility] Start: 09-11-2021 End: 09-24-[address] [facility] Start: 09-11-2021 End: 09-11-[address] Myra Gayle Work Phone: [facility]Labor[facility] Start: 07-16-2021 End: 07-16-[address] Myra Gayle Work Phone: [facility]-Laboratory, Specimen Start: 07-16-2021 End: 07-16-[address] Myra Gayle Work Phone: [facility] Procedures Date Procedure Procedure Detail Performing Clinician Start: 12-07-2024 Urnls dip stick/tabl et reagent auto microscopy Dr. Myra Gayle DO Work Phone: Start: 12-07-2024 Transvaginal obstetr ic ultrasonography Dr. Myra Gayle DO Work Phone: Start: 12-07-[address] Myar Gayle DO Work Phone: Start: 11-24-2024 Liquid based cervica l cytology screening Dr. Myra Gayle DO Work Phone: Comment on above: NEGATIVE FOR INTRAEP ITHELIAL LESION OR MALIGNANCY. This liquid based Th inPrep(R) pap test was screened withthe use of an image guided system. The HPV DNA reflex c [place] were not met with this specimenresult therefore, no HPV testing was performed.Performed at: [address] [place] [id number] Director: Brissa Myers MD, Phone: [phone] Plan of Treatment Date Care Activity Detail Author Start: 12-07-2024 [facility] Choriogonadotropin ( test) [Presence] in Serum or Plasma [facility] Liquid based cervica l cytology screening [facility] Patient Education Vaginal Bleedi ng During [facility] Work Phone: Payers Date Payer Category Payer Self-pay [id number] 2024 Unknown [id number] Unknown [facility] [id number] Unknown [id number] Unknown [id number] Unknown [id number] Unknown [id number] Unknown [id number] Unknown [id number] Unknown [id number] Unknown [id number] Unknown [id number] Unknown [id number] Social History Date Type Detail Facility Start: 03-22-2022 Tobacco smoking stat us NHIS Unknown if ever smoked [facility] Work Phone: Start: 1995 Sex Assigned At Female W [facility] Start: 11-24-2024 End: 12-07-2024 Tobacco smoking status NHIS Never smoked tobacco (finding) [facility] Patient currentl y [facility] Clinical Notes 07-16-2021 to 12-07-2024 Note Date & Type Note Facility 12-07-2024 Discharge summary [facility] 12-07-2024 Discharge summary Note Date/Time December 07, 2024 2:51pm [facility] Medical Records Department [address] [place] [address] Emergency Department Summary 12/07/24 MR#: [id number] Acct: [id number] Name: KWAN WATKINS Rep #:[id number] : 1995 29 From: Nayan Santo PCP: Dr. Myra Gayle, DO Status:REG ER Location: ED HPI HPI - Female History of Present Illness Chief Complaint: Vag Bld, Preg PFSH PFSH Medical History Anxiety History of PCOS Fatigue Home Medications ?Medication ?Instructions ?Recorded ?Last Taken ?Type NK 11/24/24 Unknown History Allergy/AdvReac Type Severity Reaction Status Date / Time No Known Allergies Allergy Verified 12/07/24 11:00 Family History Grandfather Diabetes Heart disease Myocardial infarction Alzheimer's dementia Surgical History History of tonsillectomy Social History (Updated 11/24/24 @ 08:04 by Susana Negrete) household members: spouse current occupational status: employed current occupation: [employer] Smoking Status: Never smoker alcohol intake: never substance use type: does not use what type of physical activity do you participate in: running and weight training frequency: 1-2 times per week seatbelt use: always do you feel safe at home: Yes additional social history: : [place] EXAM Physical Exam Const Vital Signs: 12/07/24 10:58 12/07/24 12:58 12/07/24 14:06 Temperature 98 F Temperature Source Oral Pulse Rate 87 78 71 Respiratory Rate 15 16 19 H Blood Pressure 143/86 H 118/78 114/68 Blood Pressure Mean 105 91 83 Pulse Ox 100 98 100 Oxygen Delivery Method Room Air Room Air Room Air [facility] Narrative Medical decision making narrative: HISTORY OF PRESENT ILLNESS: Chief complaint: Vaginal bleeding, early 29-year-old female history of anxiety, PCOS, fatigue presents with bleeding in early . States he is approximate 6 weeks . Last period was inJuly. Notes is her first she is a G1, P0. Denies lightheadedness, dizziness or syncope. Notes some abdominal cramping but denies abdominal pain at this time. No history of miscarriages. No fertility treatments. REVIEW OF SYSTEMS: Pertinent positives: Vaginal bleeding, abdominal cramping Pertinent negatives: As per HPI PHYSICAL EXAM: Nursing triage notes reviewed, Vital signs reviewed Constitutional: please see [facility] HENT: MMM Eyes: Pupils equal round and reactive to light, Extraocular muscles intact Neck: No stridor, no JVD, full neck ROM Lungs: Clear to auscultation, No wheezing or rales. No increased work of breathing, no conversational dyspnea, no accessory muscle use, no nasal flaring. No respiratory distress noted Heart: Regular rate and rhythm, No murmurs, No rubs and No gallops, 2+ distal pulses (radial, femoral, posterior tibial) in all extremities Abdomen: Soft, there is no tenderness, rigidity, rebound or guarding, no obviousperitoneal signs, no palpable pulsatile abdominal masses, no auscultated abdominal bruit : No CVAT Extremities: No edema Neuro: No new focal neurological deficits, cranial nerves II through XII intact,5/5 strength in all present extremities. Intact sensation to light touch in all present extremities, 2+ reflexes bilateral patella tendons. Skin: No rash or lesions noted MEDICAL DECISION MAKING: Chief Complaint: please see HPI External records reviewed: Reviewed prior imaging studies: No recent advanced ultrasound of the abdomen noted. Factors affecting care: As per HPI Social determinants of health: none History obtained from others: none Consults: none [facility] Narrative: The patient was initially hemodynamically stable, afebrile and nontoxic-appearing. Abdominal exam benign. I considered the following differential diagnosis: Ectopic , miscarriage, bleeding in early I obtained a broad lab and imaging workup to further determine if the patient was suffering from a life-threatening etiology. ALL IMAGES (IF OBTAINED) HAVE BEEN PERSONALLY REVIEWED AND INTERPRETED BY MYSELF. CBC without leukocytosis, severe anemia or thrombocytopenia BMP without evidence of significant electrolyte abnormalities, no anion gap, no acute kidney injury. Beta hCG 2500 consistent with early Urinalysis shows no evidence of urinary inflammation suggestive of UTI Patient is a positive no need for RhoGAM First trimester ultrasound showed an abnormal gestational sac no heartbeatbut was not definitive for ectopic or miscarriage. The synthesis of the patient's history, physical exam, labs images suggest threatened miscarriage. No definitive miscarriage, anemia or ectopic at this time. Will provide repeat hCG in 2 days. Encourage outpatient [facility] follow-up. Gave strict return precautions. The patient and/or family, caregivers express understanding. The patient and/orfamily, caregivers agrees with the plan. Shared decision making: I will have a discussion with the patient and or visitors regarding risk/benefits of further testing or admission. They will be made aware of of the risk/benefits inherent in this decision they will be given the opportunity to voice understanding. Total critical care time today provided was at least 0 minutes. This excludes separately billable procedures. Critical care time (if documented) is secondary to the patient having high probability of clinically significant/life threatening deterioration in the patient's condition which required my urgent intervention. Impression: 1. First trimester 2. Threatened miscarriage Dispo: Discharge home This note was generated with [employer] dictation software. It may contain incorrectwords, spelling, and punctuation that were not noted in review of the chart prior to signing. Lab Data Labs: Laboratory Results - last 24 hr 12/07/24 12/07/24 12/07/24 11:20 11:23 14:00 WBC 7.3 RBC 4.29 Hgb 12.8 Hct 38.1 MCV 88.8 MCH 29.8 MCHC 33.6 RDW Std Deviation 43.0 RDW Coeff of Madhuri 13.2 Plt Count 229 MPV 10.9 Immature Gran % (Auto) 0.400 Neut % (Auto) 55.7 Lymph % (Auto) 28.9 Crockett % (Auto) 8.5 Eos % (Auto) 5.4 H Baso % (Auto) 1.1 H Absolute Neuts (auto) 4.1 Absolute Lymphs (auto) 2.10 Nucleated RBC % 0 Sodium 137 Potassium 4.2 Chloride 105 Carbon Dioxide 22.3 Anion Gap 10 BUN 11 Creatinine 0.86 Estim Creat Clear Calc 108.09 Est GFR (MDRD) Non-Af 94 BUN/Creatinine Ratio 12.4 Glucose 101 H Calcium 8.6 HCG, Quant 2576 H Urine Color Straw Urine Clarity Clear Urine pH 7.0 Ur Specific Seltzer 1.010 Urine Protein Negative Urine Glucose (UA) Normal Urine Ketones Negative Urine Occult Blood 10 H Urine Nitrite Negative Urine Bilirubin Negative Urine Urobilinogen Normal Ur Leukocyte Esterase Negative Urine RBC 0 SEEN Urine WBC 0 SEEN Ur Squamous Epith Cells 0 SEEN Urine Bacteria 0 SEEN Urine Mucus 0 SEEN Blood Type A POSITIVE Radiography Diagnostic Testing: Clinical Impression(s) from Imaging Studies Obstetrics Ultrasound 12/07/24 11:24 IMPRESSION: Abnormal appearance of the gestational sac. No cardiac activity noted at this time. Follow-up recommended. Reading Location: [facility] Discharge Plan Triage Chief Complaint: Vag Bld, Preg ED Provider: Nayan Barcenas Dx/Rx/DC Orders Clinical Impression: Spotting affecting Instructions: Vaginal Bleeding During Prescriptions: No Action NK Other Ambulatory Orders: hCG Titer Quant., Serum (Routine) Timeframe: 2 Days Facility: [facility] - Location: Laboratory Ordered By: Dr. Nayan Barcenas Primary Care Provider: Myra Gayle Referrals: Andi Lebron MD [Med Staff - Active Staff] - Activity Restrictions/Additional Instructions: Thank you for trusting us with your care today! Your labs are consistent with early . Your ultrasound was NOT definitive for miscarriage or outside the uterus. Please take Tylenol (2 pills, 650 mg) as often as every 6 hours and as needed for pain and fever control. Please return to the emergency department if your symptoms change or worsen. Specifically develop heavy bleeding, you lose consciousness or develop severe abdominal pain Please follow-up at the [place] outpatient lab for repeat hormone testing in 2 days. This is 12/09/2024. Please follow with your primary care physician for further outpatient evaluationand management. Print Language: Maltese Disposition Disposition: Home, Self Care What to do if you have Problems For any increased pain, shortness of breath, bleeding, nausea or vomiting, chestpain, or any unexpected problems, contact your Primary Care Provider. Call [facility] ([phone]) or report to the closest Emergency Room. Call 911 if necessary. 12/07/24 1451 <Electronically signed by Nayan Barcenas DO> Cosigner Signature (if applicable): CC: Dr. Myra Gayle DO ~ Signed [facility] Work Phone: [phone]) 665-564208-13-2025 Radiology Diagnostic study note [facility] Imaging Services [address] [place] [address] Transvaginal w/Preg US MR#: [id number] Acct: [id number] Name: KWAN WATKINS Rep #: [id number] : 1995 F 29 From: Gerardo Eddy MD PCP: Dr. Myra Gayle DO Status: REG ER Study:Transvaginal w/Preg US Date of Exam: 12/07/24 Exam# [id number] Ordering Dr: Karen Barcenas DO PROCEDURE: TRANSVAGINAL W/PREG US 12/07/2024 REASON FOR EXAM: VAGINAL BLEEDING, EARLY TECHNIQUE: TRANSVAGINAL W/PREG US COMPARISON: None FINDINGS: Comments: LMP: November 06, 2024. Number of Gestational Sacs: 1 Gestational Sac Shape: Irregular Number of Fetuses: 1 Heart Rate: Not detected at this time. ( Yolk Sac: 5.2 mm Placenta: Presently not well-visualized The tab Uterine Abnormalities: Maternal uterus is unremarkable. Ovaries / Adnexa: Both maternal ovaries are visualized and unremarkable. DIMENSIONS: Parameter Measurement / EGA Laie Rump Length: 8.3 mm/6 weeks and 6 days Gestational Sac: 2.43 cm/7 weeks and 3 days Yolk Sac: 5.2 mm/ ESTIMATED GESTATIONAL AGE: By Ultrasound: 7 weeks and 1 day By LMP: 5 weeks and 6 days ESTIMATED DATE OF DELIVERY: By Ultrasound: July 25, 2025 By LMP: August 03, 2025 US/Transvaginal w/Preg US IMPRESSION: Abnormal appearance of the gestational sac. No cardiac activity noted at this time. Follow-up recommended. Reading Location: [facility] CC: Dr. Myra Gayle DO; Dr. Nayan Barcenas DO ~ Relationship Counselor: Signed [facility]07-31-2025 Evaluation note* Diagnosis Onset Date Resolution Status Admit Date Encounter for routine gynecological examination noneactive October 272024 7:57am [facility] Work Phone: 1(318) 537-625007-31-2025 Evaluation note* Diagnosis Onset Date Resolution Status Admit Date Encounter for routine gynecological examination noneactive October 272024 7:57am Threatened acute Augus t 2024 12:34pm [facility] Work Phone: 1(558) 182-587307-31-2025 [facility] [address], [address] [place] [address] OFFICE VISIT Date of Service: 11/24/24 MR#: [id number] Acct: [id number] Name: KWAN WATKINS Rep #: [id number] : 1995 Provider: MAGDI Ruiz Age/Sex: 29/F [place] [facility] [place]: Signed Intake Vital Signs 11/12/23 13:07 11/24/24 08:01 Height 5 ft 5 in 5 ft 5 in Weight: 196 lb 4 oz BMI 32.6 BP 108/73 Intake Visit Reasons: Annual ([employer]) 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 Is patient in pain?: No Allergies No Known Allergies Allergy (Verified 11/24/24 08:00) Medications ?Medication ?Instructions ?Recorded ?Confirmed ?Type NK 11/24/24 11/24/24 History Is last menstrual period known: Yes Last Menstrual Period: 10/28/24 Post menopausal: No Patient : No : No PFSH Medical History Anxiety History of PCOS Fatigue Surgical History History of tonsillectomy Family History Grandfather Diabetes Heart disease Myocardial infarction Alzheimer's dementia Social History (Updated 11/24/24 @ 08:04 by Susana Negrete) household members: spouse current occupational status: employed current occupation: [employer] Smoking Status: Never smoker alcohol intake: never substance use type: does not use what type of physical activity do you participate in: running and weight training frequency: 1-2 times per week seatbelt use: always do you feel safe at home: Yes additional social history: : Slick History 0 Elective abortions Hx Para Spontaneous abortions Hx # Term Pregnancies Ectopic pregnancies Hx # Pregnancies Multiple births # of living children HPI Encounter for routine gynecological examination Details: KWAN WATKINS is a 29 year old who presents for annual exam. Would like to TTC with in the next year. discussed timed intercourse. Last PAP: 06/2021 History of abnormal PAP: No Last mammogram: Due at 41yrs History of abnormal mammogram: [] Colon cancer screening: Due at 46yrs Other preventative health care screenings: PCP - Dr Gayle Female Reproductive History Last Menstrual Period: 10/28/24 Cycle Length: 21-35 Bleeding Duration: 4 Questions: metrorrhagia: No, sexually active: Yes, dyspareunia: No and PCB: No Menopausal Symptoms: No hot flashes, No night sweats, No weight change, No mood changes, No difficulty concentrating, No sleep problems and No change in libido ROS Const Constitutional: Reports system reviewed and no additional complaints, except as documented; Denies night sweats Cardio Card: Reports system reviewed and no additional complaints, except as documented Resp Resp: Reports system reviewed and no additional complaints, except as documented GI GI: Reports system reviewed and no additional complaints, except as documented : Reports system reviewed and no additional complaints, except as documented; Denies difficulty voiding, dysuria, hot flashes or urinary frequency Skin Skin/Breast: Reports system reviewed and no additional complaints, except as documented Neuro Neuro: Reports system reviewed and no additional complaints, except as documented Psych Psych: Reports system reviewed and no additional complaints, except as documented; Denies anhedonia, anxiety, change in libido, depression or difficulty concentrating Exam Const General: cooperative, healthy appearing, comfortable and no acute distress Orientation: alert, awake and oriented x3 Neck Neck: normal visual inspection and full ROM Thyroid: thyroid normal Chest Breast inspection: normal inspection of the breasts and normal inspection of the axillae Breast palpation: normal palpation of the breasts and normal palpation of the axillae Resp Effort & Inspection: normal respiratory effort, able to speak in complete sentences and symmetric chest movement GI Inspection: normal to inspection Palpation: soft Rectal Exam: visual inspection normal External Female Exam: normal external appearance and normal appearance of the urethra Urethra: normal appearance of the urethra Speculum Exam - Vagina: normal appearance of the vagina and normal vaginal discharge Speculum Exam - Cervix: normal appearance of the cervix and nontender Bimanual Exam- Vagina & Uterus: normal bimanual exam, normal palpation, uterine size normal, Notender and non-tender Bimanual Exam- Adnexa, other: normal Pelvic Support: normal Skin General: no rashes or lesions noted Neuro General: patient alert, patient awake and patient oriented x3 Cognition: normal cognition Speech: speech normal Gait: normal gait Extrem General: normal to inspection and full ROM Psych Appearance: grossly normal and well kempt Mental Status: mental status grossly normal Affect: normal affect Speech and Movement: speech and movement normal Attitude: cooperative Thought Process: normal Thought Content: normal Judgment: judgment good Coding Level of Care Code Off vis,est,prev 18-39yrs Diagnoses Encounter for routine gynecological examination Z01.419 Assessment and Plan Assessment and Plan (1) Encounter for routine gynecological examination: Orders: Orders PAP I-G w/rfx hrHPV-Aptima Today Z12.4 - Encounter for screening for malignant neoplasm of cervix Plan Details Additional Comments: Cervical cancer screening: today Breast cancer screening: age 40 STD prevention and contraceptive options including their risks, benefits, and alternatives were reviewed with the patient and she chooses: denies Encouraged maintenance of a healthy weight and active lifestyle and handout given. Calcium/vitamin D recommendations provided. Annual exam handout including recommendations for good health guidelines and basic screening information given. Problem list up to date, see problem list details for any additional plan information. follow up in one year for annual health maintenance exam or sooner if needed. 11/24/24 0831 mateusz [employer]> Date Layton Ruiz CNM Cosigner Signature: Date (if applicable) CC: ~ [facility]03-22-2022 NotePap Smear Specimen AdequacyMarch 2021 2:32pmCommentSatisfactory for evaluation. Endocervical and/or squamous metaplasticcells (endocervical component)are present.[facility] A#[id number] Work Phone: Comment on above:Satisfactory for evaluation. Endocervical and/or squamous metaplasticcells (endocervical component)are present.07-16-2021 NotePap Smear Specimen AdequacyMarch 2021 2:32pmComment Satisfactory for evaluation. Endocervical and/or squamous metaplasticcells (endocervical component)are present.[facility] A#[id number] [facility] Hospital Work Phone: Comment on above:Satisfactory for evaluation. Endocervical and/or squamous metaplasticcells (endocervical component)are present.07-16-2021 NotePap Smear Specimen AdequacyMarch 2021 2:32pmComment .Satisfactory for evaluation. Endocervical and/or squamous metaplasticcells (endocervical component)are present.[facility] A#[id number] Hospital Work Phone: Comment on above:Satisfactory for evaluation. Endocervical and/or squamous metaplasticcells (endocervical component)are present.Evaluation note* Diagnosis Onset Date Resolution Status Irregular menstruation, unspecified acute [facility] Work Phone: Evaluation note* Diagnosis Onset Date Resolution Status Irregular menstruation, unspecified acute Encounter for routine gynecological examination noneactive [facility] Work Phone: Evaluation noteNo assessment information available [facility] Work Phone: Evaluation note* Diagnosis Onset Date Resolution Status Admit Date Encounter for routine gynecological examination noneactive October 272024 7:57am [facility] Work Phone: Hospital Discharge instructionsAdditional Instructions Thank you for trusting us with your care today! Your labs are consistent with early . Your ultrasound was NOT definitive for miscarriage or outside the uterus. Please take Tylenol (2 pills, 650 mg) as often as every 6 hours and as needed for pain and fever control. Please return to the emergency department if your symptoms change or worsen. Specifically develop heavy bleeding, you lose consciousness or develop severe abdominal pain Please follow-up at the [facility] outpatient lab for repeat hormone testing in 2 days. This is 12/09/2024. Please follow with your primary care physician for further outpatient evaluation and management.[facility] Work Phone: Progress note Author Helena Ruiz [facility] Note Date/Time November 24, 2024 8:31 am [facility] [address] [place] [address], [address] [place] [address] OFFICE VISIT Date of Service: 11/24/24 MR#: [id number] Acct: [id number] Name: KWAN WATKINS Rep #: [id number] : 1995 Provider: MAGDI Ruiz Age/Sex: 29/F [place] [facility] [place]: Signed Intake Vital Signs 11/12/23 13:07 11/24/24 08:01 Height 5 ft 5 in 5 ft 5 in Weight: 196 lb 4 oz BMI 32.6 BP 108/73 Intake Visit Reasons: Annual ([employer]) 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 Is patient in pain?: No Allergies No Known Allergies Allergy (Verified 11/24/24 08:00) Medications ?Medication ?Instructions ?Recorded ?Confirmed ?Type NK 11/24/24 11/24/24 History Is last menstrual period known: Yes Last Menstrual Period: 10/28/24 Post menopausal: No Patient : No : No PFSH Medical History Anxiety History of PCOS Fatigue Surgical History History of tonsillectomy Family History Grandfather Diabetes Heart disease Myocardial infarction Alzheimer's dementia Social History (Updated 11/24/24 @ 08:04 by Susana Negrete) household members: spouse current occupational status: employed current occupation: [employer] Smoking Status: Never smoker alcohol intake: never substance use type: does not use what type of physical activity do you participate in: running and weight training frequency: 1-2 times per week seatbelt use: always do you feel safe at home: Yes additional social history: : Slick History 0 Elective abortions Hx Para Spontaneous abortions Hx # Term Pregnancies Ectopic pregnancies Hx # Pregnancies Multiple births # of living children HPI Encounter for routine gynecological examination Details: KWAN WATKINS is a 29 year old who presents for annual exam. Would like to TTC with in the next year. discussed timed intercourse. Last PAP: 06/2021 History of abnormal PAP: No Last mammogram: Due at 41yrs History of abnormal mammogram: [] Colon cancer screening: Due at 46yrs Other preventative health care screenings: PCP - Dr Gayle Female Reproductive History Last Menstrual Period: 10/28/24 Cycle Length: 21-35 Bleeding Duration: 4 Questions: metrorrhagia: No, sexually active: Yes, dyspareunia: No and PCB: No Menopausal Symptoms: No hot flashes, No night sweats, No weight change, No mood changes, No difficulty concentrating, No sleep problems and No change in libido ROS Const Constitutional: Reports system reviewed and no additional complaints, except as documented; Denies night sweats Cardio Card: Reports system reviewed and no additional complaints, except as documented Resp Resp: Reports system reviewed and no additional complaints, except as documented GI GI: Reports system reviewed and no additional complaints, except as documented : Reports system reviewed and no additional complaints, except as documented; Denies difficulty voiding, dysuria, hot flashes or urinary frequency Skin Skin/Breast: Reports system reviewed and no additional complaints, except as documented Neuro Neuro: Reports system reviewed and no additional complaints, except as documented Psych Psych: Reports system reviewed and no additional complaints, except as documented; Denies anhedonia, anxiety, change in libido, depression or difficulty concentrating Exam Const General: cooperative, healthy appearing, comfortable and no acute distress Orientation: alert, awake and oriented x3 Neck Neck: normal visual inspection and full ROM Thyroid: thyroid normal Chest Breast inspection: normal inspection of the breasts and normal inspection of the axillae Breast palpation: normal palpation of the breasts and normal palpation of the axillae Resp Effort & Inspection: normal respiratory effort, able to speak in complete sentences and symmetric chest movement GI Inspection: normal to inspection Palpation: soft Rectal Exam: visual inspection normal External Female Exam: normal external appearance and normal appearance of the urethra Urethra: normal appearance of the urethra Speculum Exam - Vagina: normal appearance of the vagina and normal vaginal discharge Speculum Exam - Cervix: normal appearance of the cervix and nontender Bimanual Exam- Vagina & Uterus: normal bimanual exam, normal palpation, uterine size normal, No tender and non-tender Bimanual Exam- Adnexa, other: normal Pelvic Support: normal Skin General: no rashes or lesions noted Neuro General: patient alert, patient awake and patient oriented x3 Cognition: normal cognition Speech: speech normal Gait: normal gait Extrem General: normal to inspection and full ROM Psych Appearance: grossly normal and well kempt Mental Status: mental status grossly normal Affect: normal affect Speech and Movement: speech and movement normal Attitude: cooperative Thought Process: normal Thought Content: normal Judgment: judgment good Coding Level of Care Code Off vis,est,prev 18-39yrs Diagnoses Encounter for routine gynecological examination Z01.419 Assessment and Plan Assessment and Plan (1) Encounter for routine gynecological examination: Orders: Orders PAP I-G w/rfx hrHPV-Aptima Today Z12.4 - Encounter for screening for malignant neoplasm of cervix Plan Details Additional Comments: Cervical cancer screening: today Breast cancer screening: age 40 STD prevention and contraceptive options including their risks, benefits, and alternatives were reviewed with the patient and she chooses: denies Encouraged maintenance of a healthy weight and active lifestyle and handout given. Calcium/vitamin D recommendations provided. Annual exam handout including recommendations for good health guidelines and basic screening information given. Problem list up to date, see problem list details for any additional plan information. follow up in one year for annual health maintenance exam or sooner if needed. 11/24/24 0831 <Electronically signed by Helena child CNM> Date _ Helena Ruiz CNM Cosigner Signature: Date (if applicable) CC: ~ [facility] Work Phone: Reason for referral (narrative)No reason for referral information availableIndian [facility] Work Phone: Chief Complaint and Reason for Visit Chief Complaint Admit Date Annual ([employer]) November 24, 2024 7:57 am VAGINAL BLEED December 07, 2024 10 :57am Reason for Visit Admit Date Encounter for routine gynecological exam ination November 24, 2024 7:57am Chief Complaint Annual ([employer]) Reason for Visit Irregular menstruati on, unspecified Chief Complaint Annual ([employer]) OBESITY Reason for Visit Irregular menstruati on, unspecified Chief Complaint Annual ([employer]FORMATION [employer]) OBESITY OBESITY Reason for Visit Irregular menstruati on, unspecified Encounter for routine gynecological examination Chief Complaint OBESITY OBESITY OBESITY Chief Complaint OBESITY OBESITY OBESITY OBESITY Chief Complaint Admit Date Annual ([employer]) November 24, 2024 7:57 am Chief Complaint Admit Date Annual ([employer]) November 24, 2024 7:57 am VAGINAL BLEED December 07, 2024 10 :57am ER f/u see US (Abnormal shaped sac), Rell nts. December 08, 2024 12:34pm Chief Complaint Admit Date Annual ([employer]) November 24, 2024 7:57 am VAGINAL BLEED December 07, 2024 10 :57am ER f/u see US (Abnormal shaped sac), Rell nts. December 08, 2024 12:34pm ORDER NEEDED December 09, 2024 8: 42am Reason for Visit Admit Date Encounter for routine gynecological exam ination November 24, 2024 7:57am Threatened December 08, 2024 12 :34pm Chief Complaint Admit Date Annual ([employer]) November 24, 2024 7:57 am VAGINAL BLEED December 07, 2024 10 :57am ER f/u see US (Abnormal shaped sac), Rlel nts. December 08, 2024 12:34pm ORDER NEEDED December 09, 2024 8: 42am 1 wk f/u December 15, 2024 3: 54pm Family History No Family History Records Found Relationship Condition Age at Onset Recorded Date/T billie grandfather Diabetes mellitus Unknown Cardiac disease Unknown Myocardial infarction Unknown Alzheimer's dementia Unknown Advance Directives No Advanced Directives Records Found Advance Directive Response Recorded Date/ Time Living Will No December 17 3:19pm Power of Spring Setter No December 17 2 021 3:19pm Advance Directive Response Recorded Date/ Time Do you have a Healthcare Power of Spring Setter? No December 07, 2024 11:12am Summary Purpose Additional Source Comments Goals (unrecognized section and content) Goals may be documented in a n alternate sectionGoals may be documented in an alternate sectionGoals may be documented in an alternate sectionGoals may be documented in an alternate sectionGoals may be documented in an alternate sectionGoals may be documented in an alternate sectionGoals may be documented in an alternate sectionGoals may be documented in an alternate sectionGoals may be documented in an alternate sectionGoals may be documented in an alternate sectionGoals may be documented in an alternate section Care Teams (unrecognized sec tion and content) Team Status: Active Member Role/Relationship Status Dates Dr. Myra Gayle DO Family Provider Active Dr. Myra Gayle DO Primary Care Provider Active Team Status: Inactive Member Role/Relationship Status Dates Dr. Myra Gayle DO Primary Care Provider Active Start: November 24, 2024 End: November 24, 2024 Dr. Myra Gayle DO Referring Provider Active St art: November 24, 2024 End: November 24, 2024 Helena Ruiz CNM Attending Provider Active S tart: November 24, 2024 End: November 24, 2024 Team Status: Inactive Member Role/Relationship Status Dates Dr. Myra Gayle DO Primary Care Provider Active Start: November 24, 2024 End: November 24, 2024 Helena Ruiz CNM Attending Provider Active S tart: November 24, 2024 End: November 24, 2024 Team Status: Active Member Role/Relationship Status Dates Dr. Myra Gayle DO Primary Care Provider Active Team Status: Inactive Member Role/Relationship Status Dates Dr. Myra Gayle DO Primary Care Provider Active Start: December 07, 2024 End: December 07, 2024 Dr. Nayan Barcenas DO Emergency Provider Active Start: December 07, 2024 End: December 07, 2024 Team Status: Inactive Member Role/Relationship Status Dates Dr. Myra Gayle DO Primary Care Provider Active Start: December 08, 2024 End: December 08, 2024 Dr. Myra Gayle DO Referring Provider Active St art: December 08, 2024 End: December 08, 2024 Dr. Joan Hall MD Attending Provider Active Start: December 08, 2024 End: December 08, 2024 Team Status: Inactive Member Role/Relationship Status Dates Dr. Myra Gayle DO Primary Care Provider Active Start: December 07, 2024 End: December 07, 2024 Dr. Nayan Barcenas DO Attending Provider Active Start: December 07, 2024 End: December 07, 2024 Dr. Nayan Barcenas DO Emergency Provider Active Start: December 07, 2024 End: December 07, 2024 Team Status: Inactive Member Role/Relationship Status Dates Dr. Myra Gayle DO Primary Care Provider Active Start: December 09, 2024 End: December 09, 2024 Dr. Joan Hall MD Attending Provider Active Start: December 09, 2024 End: December 09, 2024 Dr. Joan Hall MD Referring Provider Active Start: December 09, 2024 End: December 09, 2024 Team Status: Inactive Member Role/Relationship Status Dates Dr. Myra Gayle DO Primary Care Provider Active Start: December 15, 2024 End: December 15, 2024 Dr. Myra Gayle DO Referring Provider Active St art: December 15, 2024 End: December 15, 2024 Dr. Joan Hall MD Attending Provider Active Start: December 15, 2024 End: December 15, 2024 INFORMATION SOURCE (unrecogn ized section and content) DATE CREATED AUTHOR 12/18/2024 [facility] FOR RECORDS PERTAINING TO PATIENTS WHO ARE OR HAVE BEEN ENROLLED IN A CHEMICAL DEPENDENCY/SUBSTANCEABUSE PROGRAM, SOME INFORMATION MAY BE OMITTED. This clinical summary was aggregated from multiple sources. Caution should be exercised in using it in the provision of clinical care. This summary normalizes information from multiple sources, and as a consequence, information in this document may materially change the coding, format and clinical context of patient data. In addition, data may be omitted in some cases. CLINICAL DECISIONS SHOULD BE BASED ON THE PRIMARY CLINICAL RECORDS. [facility]. provides no warranty or guarantee of the accuracy or completeness of information in this document.
[2024-12-19 14:43] LABS: Hematocrit 36.8 % (37-47); Hemoglobin 12.7 g/dL (12.0-15.0); Mean Corp Hgb Conc 34.5 g/dL (32-36); Mean Corpuscular Volume 87.6 fL (81-99); Mean Platelet Vol. 11.0 fl (6.2-12.0); Platelet Count 211 K/mm3 (150-450); RBC Distribution Width CV 13.0 % (11.6-14.6); RBC Distribution Width SD 41.7 fl (35.1-43.9); Red Blood Count 4.20 M/mm3 (4.2-5.4); White Blood Count 6.8 K/mm3 (4.4-11.0)
[2024-12-19] MEDS: Lactated Ringers 1,000 ML 15 ML IV (14:45)
--- NOTE | 2024-12-19 14:56 | PCM.HP.OB ---
HPI - General HPI Narrative KWAN WATKINS, is a 29 F who presents for early miscarriage. she has had intermittent vaginal bleeding and some cramping. US has showed 5weeks 6days with 3mm CRL with no FHT present. repeat ultrasound today confirms- 2.5mm pole no FHT GS still measuring 5w6d with large subchorionic hematoma present PFSH PFSH Medical History Anxiety History of PCOS Fatigue Home Medications ?Medication ?Instructions ?Recorded ?Last Taken ?Type NK 11/24/24 Unknown History Allergy/AdvReac Type Severity Reaction Status Date / Time No Known Allergies Allergy Verified 12/19/24 14:40 Family History Grandfather Diabetes Heart disease Myocardial infarction Alzheimer's dementia Surgical History History of tonsillectomy Social History household members: spouse current occupational status: employed current occupation: [employer] Smoking Status: Never smoker alcohol intake: never substance use type: does not use what type of physical activity do you participate in: running and weight training frequency: 1-2 times per week seatbelt use: always do you feel safe at home: Yes additional social history: : Slick History 1 Elective abortions Hx Para 0 Spontaneous abortions Hx # Term Pregnancies Ectopic pregnancies Hx # Pregnancies Multiple births # of living children ROS Constitutional Constitutional: Reports systems reviewed and no addt'l complaints, except as documented; Denies as per HPI, change in weight, fatigue, fever(s), malaise, weakness or other Eyes Eyes: Reports systems reviewed and no addt'l complaints, except as documented; Denies as per HPI, change in vision or other ENT HEENT: Reports systems reviewed and no addt'l complaints, except as documented Respiratory/Chest Respiratory/Chest: Reports systems reviewed and no addt'l complaints, except as documented Gastrointestinal Gastrointestinal: Reports systems reviewed and no addt'l complaints, except as documented and as per HPI Genitourinary Genitourinary: Reports as per HPI Musculoskeletal Musculoskeletal: Reports systems reviewed and no addt'l complaints, except as documented Neurologic Neurologic: Reports systems reviewed and no addt'l complaints, except as documented Psychiatric Psychiatric: Reports systems reviewed and no addt'l complaints, except as documented Endocrine Endocrinology: Reports systems reviewed and no addt'l complaints, except as documented Hematologic/Lymphatic Hematologic/Lymphatic: Reports systems reviewed and no addt'l complaints, except as documented Vital Signs Vital Signs Vital Signs: 12/19/24 14:40 12/19/24 14:40 Temperature 98.4 F Temperature Source Temporal Pulse Rate 79 Respiratory Rate 18 Respiratory Pattern Normal Blood Pressure 102/66 Blood Pressure Mean 78 Blood Pressure Source Monitor Blood Pressure Position Semi-Fowlers Blood Pressure Location Left Arm Pulse Ox 100 Oxygen Delivery Method Room Air Weight Weight: 198 lb 6.656 oz Body Mass Index (BMI) 33.0 Physical Exam Const alert, oriented x3 and no apparent distress HEENT normocephalic Head and Scalp: atraumatic Eyes EOMs intact bilaterally and conjunctivae normal Neck full ROM, no lymphadenopathy, supple and thyroid normal General: trachea midline Lymph Lymphatic: no lymphadenopathy noted Resp normal respiratory effort, no retractions, no use of accessory muscles and clear to auscultation bilaterally Cardio regular rhythm GI normal to inspection, nondistended, normoactive bowel sounds, soft to palpation, non-distended and no masses Inspection: Negative for abdominal distention Back/Spine no CVA tenderness Extremity normal to inspection Skin no rashes or lesions noted Neuro moves all extremities and deep tendon reflexes 2+ bilaterally Psych mental status grossly normal Labs Labs Labs: Blood Type A POSITIVE Antibody Screen Pending Hct 36.8 % (37-47) L Hgb 12.7 g/dL (12.0-15.0) Obstetrics Ultrasound Chlamydia DNA (DANIA) Negative (Negative) N.gonorrhoeae DNA (DANIA) Negative (Negative) Assessment & Plan (1) Missed : COMMENT: plan suction d and c thursday- repeat one more ultrasound for additional confirmation thursday PLAN: Plan After discussing the patient's diagnosis and treatment plan options, patient wishes to proceed with surgical management. I have discussed with the patient the risks, benefits, and alternatives of the procedure which include but are not limited to risks of anesthesia, bleeding, infection, possible damage to bowel, bladder, or surrounding vasculature which could lead to additional surgery to evaluate any complications. Patient agrees to procedure and wishes to proceed. ACOG/uptodate references given for additional information regarding procedure.
--- NOTE | 2024-12-19 15:00 | PRE.ANES_ITS ---
ASA Classification* ASA Classification ASA Classification: 2 Assessment & Plan Anesthesia* Anesthesia Assessment Anesthesia Assessment: Discussed sedation and/or anesthesia options, risks, benefits, and alternatives with patient/parents/legal guardian/POA. Questions invited. The patient/parents/legal guardian/POA seems to understand and agrees to proceed with anesthesia plan. Reviewed the physical assessment, medical history, allergy history and patient home medications list prior to surgery/procedure/anesthetic and documented any changes. Performed airway and anesthesia risk assessments. Anesthesia Type Anesthesia Type: MAC History Source History Obtained from:: Patient and Chart Anesthesia Focused Assessment* Temperature: 98.4 F Pulse Rate: 79 Blood Pressure: 102/66 Respiratory Rate: 18 Pulse Ox: 100 Oxygen Delivery Method: Room Air Airway Assessment Mouth opens: 2 cm Mallampati Score: III Teeth Condition: Intact Neck Range of motion (ROM): Full ROM Labs Anesthesia Preop lab: CBC WBC 6.8 K/mm3 (4.4-11.0) 12/19/24 14:35 12/19/24 RBC 4.20 M/mm3 (4.2-5.4) 12/19/24 14:35 12/19/24 Hgb 12.7 g/dL (12.0-15.0) 12/19/24 14:35 12/19/24 Hct 36.8 % (37-47) L 12/19/24 14:35 12/19/24 Plt Count 211 K/mm3 (150-450) 12/19/24 14:35 12/19/24 CHEMISTRY Potassium 4.2 mmol/L (3.3-5.1) 12/07/24 11:23 12/07/24 Sodium 137 mmol/L (133-145) 12/07/24 11:23 12/07/24 BUN 11 mg/dL (4-19) 12/07/24 11:23 12/07/24 Creatinine 0.86 mg/dL (0.70-1.20) 12/07/24 11:23 12/07/24 Glucose 101 mg/dL (70-99) H 12/07/24 11:23 12/07/24 POC Glucose 89 mg/dL (70-110) 07/20/20 11:20 07/20/20 TSH 1.75 uIU/mL (0.358-3.74) 05/17/20 15:07 COAG HCG, Quant 2922 mIU/mL (<9 non-preg) H 12/09/24 08:50 Urine Test Negative Negative 07/20/20 09:25 07/20/20 Pre-Assessment Diagnosis/Proposed Procedure Planned Operative Procedure(s): SUCTION D & C Anesthesia History Anesthesia History - controls design engineer: Anesthesia History - controls design engineer Hx Hospitalization No 12/16/24 13:29 Any Problems With Anesthesia No 12/16/24 13:29 Cholinesterase deficiency No 12/16/24 13:29 You/Your Family Experience No 12/16/24 13:29 fever (hyperthermia) with Relationship Recent Exposure to Contagious No 12/19/24 14:40 Disease Does patient have nerve No 12/16/24 13:29 stimulator Patient instructed to have device shut off --Does patient have Pacemaker No 12/19/24 14:40 or ICD? When Was Last Pacemaker Check QUESTION #4 FULL TEXT: You/Your Family Experience fever (hyperthermia) with Anesthesia Last Oral Intake Last Oral intake: Last Oral Intake NPO since 10:00 12/19/24 14:40 Meds taken in AM with sips of No 12/19/24 14:40 water? Meds patient instructed to take am of surgery PONV PONV - controls design engineer: PONV - controls design engineer Female Yes 12/16/24 13:29 HX of Motion Sickness Yes 12/16/24 13:29 HX of N/V After Surgery No 12/16/24 13:29 Non-Smoker Yes 12/16/24 13:29 Duration of Surgery greater No 12/16/24 13:29 than 60 minutes Number of Risk Factors 3 12/16/24 13:29 PONV Score Moderate Risk 12/16/24 13:29 Height & Weight Height & Weight: Anesthesia: Height & Weight Height 5 ft 5 in 12/19/24 14:40 Weight: 90 kg 12/19/24 14:40 Body Mass Index (BMI) 33.0 12/19/24 14:40 Respiratory Assessment Respiratory Assessment - controls design engineer: Respiratory Tract Infection Hx - controls design engineer Hx Respiratory Tract Infection No 12/16/24 13:29 STOP Sleep Apnea STOP Sleep Apnea - controls design engineer: STOP Sleep Apnea - controls design engineer Hx Hypertension No 12/16/24 13:29 Hx Sleep Apnea No 12/16/24 13:29 CPAP BIPAP Do you snore loudly (louder No 12/16/24 13:29 than talking or can be heard Do you often feel tired/ No 12/16/24 13:29 fatigued/ sleepy during daytime? Has anyone observed you stop No 12/16/24 13:29 breathing during sleep? STOP Results Negative 12/16/24 13:29 QUESTION #5 FULL TEXT : Do you snore loudly (louder than talking or can be heard through closed doors)? 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 Specify any problems Hx of Preganancy in last 3 No 12/16/24 13:29 Months Nurse Filling Out Transfusion EHLAMAR 12/16/24 13:29 & Questions: Date: 12/16/24 12/16/24 13:29 Time: 13:33 12/16/24 13:29 Patient unable to answer at this time (ie. confused, unrespo /Reproduction History /Reproductive History - controls design engineer: /Reproductive Hx- controls design engineer Hx Now No 12/16/24 13:29 Gestational Age (in weeks): EDC: Hx Hx Para Hx Section SAB No 12/16/24 13:29 Active Medications Active Medications: Current Medications Generic Name Dose Route Start Last Admin Trade Name Freq PRN Reason Stop Dose Admin Doxycycline Monohydrate 100 mg 12/19/24 15:30 12/19/24 14:45 Doxycycline 100 Mg Capsule PO 12/19/24 15:31 100 mg PREOP ONE Administration Lactated Ringer's 1,000 mls @ 15 mls/hr 12/19/24 14:15 12/19/24 14:45 IV 15 mls/hr .Q48H ANTONIA Administration Lactated Ringer's 1,000 mls @ 15 mls/hr 12/19/24 14:15 12/19/24 14:15 IV Not Given .Q48H ANTONIA PFSH Medical History Anxiety History of PCOS Fatigue Home Medications ?Medication ?Instructions ?Recorded ?Last Taken ?Type NK 11/24/24 Unknown History Allergy/AdvReac Type Severity Reaction Status Date / Time No Known Allergies Allergy Verified 12/19/24 14:40 Family History Grandfather Diabetes Heart disease Myocardial infarction Alzheimer's dementia Surgical History History of tonsillectomy Social History household members: spouse current occupational status: employed current occupation: [employer] Smoking Status: Never smoker alcohol intake: never substance use type: does not use what type of physical activity do you participate in: running and weight training frequency: 1-2 times per week seatbelt use: always do you feel safe at home: Yes additional social history: : Slick Review of Systems (Anesthesia) ROS Narrative System reviewed and no additional complaints, except as documented.
--- NOTE | 2024-12-19 15:30 | POC_PTH ---
PATIENT: KWAN WATKINS [place] [facility] [id number] AGE/SX: 29/F ROOM: RE12/19/[address]: Dr. Joan Hall MD : 1995 BED: DIS: 12/19/2024 SPEC #: [id number] RECD: 12/19/24 17:35 STATUS: BRANDY REEve #: [id number] NEVIN: 12/19/24 15:[address]: Joan Hall DEPT: SURGICAL PATHOLOGY RECD BY: Manpreet Chavez ENTERED: 12/20/24 09:10 SP TYPE: PROD CONC OTHR DR: Dr. Myra Gayle, DO Tissues: A - Product of conception, NOS Procedures: Surgery Specimen Level IV Comments: Spoke to Karen on 01/04/25 about added addendum. HEADER OPERATION: Dilation and curettage, suction (NOT ANORA) PRE-OP DIAGNOSIS: Missed TISSUE SUBMITTED: A- Products of conception MICROSCOPIC DIAGNOSIS A. Uterus, suction curettage: - Hypersecretory endometrium, decidua, and immature chorionic villi with hydropic degeneration, consistent with products of conception. MICROSCOPIC DESCRIPTION Slides are reviewed. GROSS DESCRIPTION A. Received in formalin labeled with the patient's name and date of . Designated as products of conception is a 16.3 g, 6.1 x 5.5 x 0.9 cm aggregate of harris-pink soft tissue fragments, mucoid material, and papilliferous tissue fragments (suspicious for chorionic villi). parts are not present. Program Coordinator For Residence Life sections are submitted in 2 cassettes. [place] 12/20/2024 CPT:[id number] ADDENDUM ADDENDUM ADDENDUM 01/04/2025 08:17 ADDENDUM 01/04/2025 08:17 ADDENDUM 01/04/2025 08:17 ADDENDUM 01/04/2025 08:17 ADDENDUM 01/04/2025 08:17 This addendum is provided at Margi Garcia's request: There is no evidence of molar in these sections.
[2024-12-19] MEDS: Midazolam 2 MG/2 ML Syringe IV (15:34)
[2024-12-19] MEDS: Lidocaine 1% (5 ml sdv) 5 ML Vial IV (15:37)
--- NOTE | 2024-12-19 15:40 | OP.PCM_ITS ---
Problems Associated Problem List Diagnoses (1) Missed : Procedures Urinary/Genital 52xxx-59xxx: 05321 Surg Trtmt missed Ab, 1TM Operative Report (Standard) Operative Information Date of Procedure: 12/19/24 Pre-Operative Diagnosis: see problem list comments Post-Operative Diagnosis: same Surgery/Procedure Performed: suction dilation and curettage information technology program manager: No Type of Anesthesia: IV Sedation and Local RN Documented Start/Stop Times: Operation Date: 12/19/24 15:30 Case Time Into Pre-Op 12/19/24 14:13 Out of Pre-Op 12/19/24 15:32 Anesthesia Start 12/19/24 15:33 Into Room 12/19/24 15:33 Procedure Start 12/19/24 15:53 Procedure Start Time: 15:53 Procedure Stop Time: 16:07 Select all DRAINS/GRAFTS/IMPLANTS that apply: None Estimated Blood Loss: 50 Specimen collected: Yes Description of specimen(s) removed: retained POC Description of surgery: Patient was taken to the operating room and placed under MAC local anesthesia. She was prepped and draped in the normal sterile fashion the dorsal lithotomy position. Bladder was drained of clear urine and anterior lip of the cervix was grasped and the uterus sounded to 9 cm. Cervix was progressively dilated to allow passage of a [] suction curette. Progressive passes were made removing the retained products of conception without complication. Sharp curettage confirmed complete removal of the retained products. All instruments were removed from the vagina and excellent hemostasis was noted and the patient was taken to recovery in stable condition. Surgical Findings: 6 week missed ab Complications Complications: No
--- NOTE | 2024-12-19 15:42 | PCM.DC ---
Discharge Instructions DC O2, CPAP, BIPAP needs Home O2 Discharge instructions: No Dressing / Incision Discharge Activity: Return to Normal Activity, May Shower and May Take a Tub Bath (after 1 week) May resume sexual activity in: 1-2 weeks Weight Bearing Status: Weight bearing as tolerated Lifting Restrictions: none Dressing / Incision Call your doctor if you observe: Fever of 101 or Higher, Using more than 1 pad per hour, Shortness of breath and Uncontrolled pain Follow Up Care Please Follow Up With: Joan Hall MD When: Call [phone] to schedule appointment. Test Results: Test results from this visit will be discussed in further detail at your follow-up appointment, if applicable. Discharge Plan Admission Attending Provider: Joan Hall Primary Care Provider: Myra Gayle Instructions Print Language: Colombian Discharge Orders/Prescriptions Prescriptions: No Action NK Referrals / Follow Up: Myra Gayle DO [Primary Care Provider] - Disposition Disposition (needs filled in before D/C Order can be placed): Home, Self Care
[2024-12-19] MEDS: Lidocaine 1% (20 ml mdv) 20 ML Vial (15:53)
[2024-12-19] MEDS: fentaNYL 100 MCG/2 ML Ampul 200 MCG IV (16:08)
--- NOTE | 2024-12-19 16:21 | PCM.POST.ANE ---
Anesthesia: Postop Eval I Current Vital Signs Temperature: 97.3 F Pulse Rate: 86 Blood Pressure: 109/61 Respiratory Rate: 16 Pulse Ox: 100 Assessment Airway patent: Yes Spontaneous unlabored respirations: Yes Mental status: Awake and Calm nausea: No Vomiting: No Anesthesia Complication: No Fluid Hydration Crystalloid volume administer (ml): 900 Total IV fluid infused: 900 Progress Note Anesthesia document: Postop Eval 1 completed: Yes
--- NOTE | 2024-12-19 19:23 | POSTOPAN2_ITS ---
Anesthesia Postop Eval I Sum Postop Eval Completion status Anesthesia document: Postop Eval 1 completed: Yes Anesthesia Postop Eval I Summary Anesthesia Postop Eval I Summary: Anesthesia Postop Eval I: Assessment Summary Airway patent Yes 12/19/24 16:22 GENERAL EDUCATION INSTRUCTOR.LAURAOBEarnestine Spontaneous unlabored Yes 12/19/24 16:22 GENERAL EDUCATION INSTRUCTOR.PRABHA respirations Mental status Awake,Calm 12/19/24 16:22 GENERAL EDUCATION INSTRUCTOR.LAURAOBEarnestine nausea No 12/19/24 16:22 GENERAL EDUCATION INSTRUCTOR.LAURAOBEarnestine Vomiting No 12/19/24 16:22 GENERAL EDUCATION INSTRUCTOR.LAURAOBEarnestine Anesthesia Postop Eval I: Fluid Summary Crystalloid volume administer 900 12/19/24 16:22 GENERAL EDUCATION INSTRUCTOR.LAURAOBY (ml) Colloids volume administered ( ml) Blood Product volume administered (ml) Total IV fluid infused 900 12/19/24 16:22 GENERAL EDUCATION INSTRUCTOR.PRABHA Anesthesia Postop Eval I: Summary Notes Anesthesia Complication No 12/19/24 16:22 GENERAL EDUCATION INSTRUCTOR.PRABHA Anesthesia Complication Comment: Post-operative progress note Anesthesia: Postop Eval II Evaluation Mental status: Awake Pain Level: 0 nausea: No Vomiting: No Complications Anesthesia Complication: No
--- NOTE | 2024-12-19 19:23 | PCM.POSTANE2 ---
Anesthesia Postop Eval I Sum Postop Eval Completion status Anesthesia document: Postop Eval 1 completed: Yes Anesthesia Postop Eval I Summary Anesthesia Postop Eval I Summary: Anesthesia Postop Eval I: Assessment Summary Airway patent Yes 12/19/24 16:22 POSTDOCTORAL SCHOLAR.LAURAOBEarnestine Spontaneous unlabored Yes 12/19/24 16:22 POSTDOCTORAL SCHOLAR.PRABHA respirations Mental status Awake,Calm 12/19/24 16:22 POSTDOCTORAL SCHOLAR.LAURAOBEarnestine nausea No 12/19/24 16:22 POSTDOCTORAL SCHOLAR.LAURAOBEarnestine Vomiting No 12/19/24 16:22 POSTDOCTORAL SCHOLAR.LAURAOBEarnestine Anesthesia Postop Eval I: Fluid Summary Crystalloid volume administer 900 12/19/24 16:22 POSTDOCTORAL SCHOLAR.LAURAOBY (ml) Colloids volume administered ( ml) Blood Product volume administered (ml) Total IV fluid infused 900 12/19/24 16:22 POSTDOCTORAL SCHOLAR.PRABHA Anesthesia Postop Eval I: Summary Notes Anesthesia Complication No 12/19/24 16:22 POSTDOCTORAL SCHOLAR.PRABHA Anesthesia Complication Comment: Post-operative progress note Anesthesia: Postop Eval II Evaluation Mental status: Awake Pain Level: 0 nausea: No Vomiting: No Complications Anesthesia Complication: No
== END 2024-12-19 17:28 | disposition home or self-care (01) ==
LOC: SDC 14:10 → AC 14:11
PROVIDERS: PCP Family Medicine; Referring Provider Obstetrics & Gynecology; Visit Provider Obstetrics & Gynecology
PROC: (CPT 59820; principal; 2024-12-19 15:15)
DX: O02.1 Missed abortion (principal)
CPT/HCPCS: 59820; 01965; 85027; 86850; 86900; 86901; 88305; J2405

== ENCOUNTER → 2025-01-04 | Outpatient (CLI) | payer OTHER, SELFPAY ==
[2025-01-04 17:02] LABS: hCG Titer Quant., Serum 7 mIU/mL (<9 non-preg)
== END | disposition home or self-care (01) ==
LOC: BWCLAB 15:24
PROVIDERS: PCP Family Medicine; Referring Provider Nurse Practitioner Women's Health; Visit Provider Nurse Practitioner Women's Health
DX: O02.1 Missed abortion (principal)
CPT/HCPCS: 36415; 84702

== ENCOUNTER → 2025-03-31 | Outpatient (CLI) | payer OTHER, SELFPAY ==
--- NOTE | 2025-03-31 08:18 | US_ITS ---
PROCEDURE: TRANSVAGINAL W/PREG US 03/31/2025 REASON FOR EXAM: VIABILITY TECHNIQUE: Procedure Code: [id number] Modality: US Procedure: TRANSVAGINAL W/PREG US COMPARISON: December 07, 2024. FINDINGS: Comments: LMP: February 08, 2025 Number of Gestational Sacs: 1 Gestational Sac Shape: Normal Number of Fetuses: 1 Heart Rate: 120 beats per minute (average) Yolk Sac: Present and unremarkable. Placenta: Presently not well-visualized Amniotic Fluid Volume: Subjectively normal for gestational age. Uterine Abnormalities: Maternal uterus is unremarkable.. There is a 1.6 cm 1.2 cm x 0.6 cm subchorionic hematoma. Ovaries / Adnexa: Both maternal ovaries are visualized and unremarkable. DIMENSIONS: Parameter Measurement / EGA [place] Rump Length: 8 mm/6 weeks and 6 days Gestational Sac: 2.1 mm/ Yolk Sac: 4 mm/ ESTIMATED GESTATIONAL AGE: By Ultrasound: 6 weeks and 6 days By LMP: 7 weeks and 2 days ESTIMATED DATE OF DELIVERY: By Ultrasound: November 18, 2025 By LMP: November 15, 2025 US/Transvaginal w/Preg US IMPRESSION: Single live intrauterine gestation with a mean gestational age of 6 weeks and 6 days. Small subchorionic hematoma. Reading Location: [place] [id number]
--- OUTSIDE RECORDS SUMMARY | 2025-03-31 08:38 | XMS RPT_ITS | CCD ---
Author Organization [facility] CliniSysc Care Team Providers Care Associate Professor Of Anthropology Name Role Phone Dr. Myra Gayle Primary Care Provider Dr. Myra Gayle Referring Provider Mayela DEEP FAT COOK FRY, DEEP FAT COOK FRY-C Margi Attending Provider Dr. Myra Gayle DO Primary Care Provider Dr. Myra Gayle DO Referring Provider [phone] Helena Ruiz CNM Attending Provider Narinder LAZCANO, Dr. Spicer Emergency Provider [phone] Isabel TABARES, Dr. Franco Attending Provider [phone] Dr. Nayan Barcenas DO Attending Provider Isabel TABARES, Dr. Franco Referring Provider Isabel TABARES, Dr. Franco Other Provider [place] DEEP FAT COOK FRY-C, Margi Attending Provider Mayela DEEP FAT COOK FRY-C, Margi Referring Provider Malys, Myra Primary Care Unavailable Joan Hall Attending Unavailable Malys, Myra Referring Unavailable MarcanthJoan rose Attending Unavailable Malys, Myra Primary Care Unavailable Joan Hall Referring Unavailable Malys, Myra Primary Care Unavailable Joan Hall Attending Unavailable GarrettonyJoan Referring Unavailable Helena Ruiz Attending Unavailable Malys, Myra Primary Care Unavailable Malys, Myra Primary Care Unavailable MillburyMargi Attending Unavailable [place] Margi Referring Unavailable Malys, Myra Primary Care Unavailable Lindsay Roa Attending Unavailabl e Lindsay Roa Referring Unavailabl e Malys, Myra Primary Care Unavailable Nayan Barcenas Attending Unavailable Malys, Myra Primary Care Unavailable Joan Hall Attending Unavailable Malys, Myra Referring Unavailable Malys, Myra Primary Care Unavailable Joan Hall Consulting Unavailable Joan Hall Attending Unavailable Isabel, Joan Referring Unavailable Malys, Myra Primary Care Unavailable Joan Hall Attending Unavailable Malys, Myra Referring Unavailable Helena Ruiz Attending Unavailable Malys, Myra Primary Care Unavailable Malys, Myra Referring Unavailable Malys, Myra Primary Care Unavailable Margi Pedro Attending Unavailable Malys, Myra Referring Unavailable Malys , Dr. Renteria Primary Care Physician Helena Ruiz CNM Attending Physician Narinder LAZCANO, Dr. Spicer Attending Physician Dr. Nayan Barcenas DO Emergency Department [facility] tamra Isabel TABARES, Dr. Franco Attending Physician Isabel TABARES, Dr. Franco Nurse Practitioner Mayela DEEP FAT COOK FRY-C, Margi Attending Physician Medications Current Medications Medication Drug Class(es) Dates Sig (Normalized) Sig (Original) Multivitamin preparation (5 sources) Start: 07-16-2021 take 1 tablet by mouth once daily Multivitamin Active 1 TABLET PO DAILY July 16, 2021 10:10am Start: 07-16-2021 take 1 tablet by allyson th once daily Multivitamin Active 1 TABLET PO DAILY July 16, 2021 12:00am Iroquois (Nk) (9 sources) Start: 11-24-2024 Iroquois (Nk) A ctive November 24, 2024 12:00am Completed/Discontinued Medications Medication Drug Class(es) Dates Sig (Normalized) Sig (Original) acetaminophen 32 mg/ml oral suspension (14 sources) Start: 07-20-2020 End: 09-22-2020 take 500 mg by mouth every four hours as needed for pain Acetaminophen 160 MG/5 ML suspension Discontinued 500 mg PO EVERY 4 HOURS NEEDED as needed for Pain Score 1-5/10 0 July 20, 2020 12:00am September 22, 2020 11:10am acetaminophen 21.7 mg/ml / HYDROcodone bitartrate 0.5 mg/ml oral solution (14 sources) Opioid Agonist Start: 07-26-2020 End: 07-29-2020 [...] mg / clavulanate 125 mg oral tablet (14 sources) Penicillin-class Antibacterial Start: 09-22-2020 End: 10-02-2020 Amoxicillin-Pot Clavulanate (Augmentin) 875-125 mg tablet Discontinued 1 {tbl} PO Q12H 20 10 0 September 22, 2020 12:00am October 01, 2020 12:00am October 02, 2020 12:01am Acute sinusitis, unspecified citalopram 10 mg oral tablet (9 sources) Serotonin Reuptake Inhibitor Start: 07-22-2022 End: 11-12-2023 take 1 tablet by mouth once daily Citalopram 10 mg tablet Discontinued 10 mg PO DAILY July 22, 2022 12:00am November 12, 2023 1:06pm ferrous sulfate 325 mg oral tablet (14 sources) Start: 07-16-2021 End: 11-12-2023 take 1 tablet by mouth once daily Ferrous Sulfate (Iron) 325 mg (65 mg iron) tablet Discontinued 325 mg PO DAILY July 16, 2021 12:00am November 12, 2023 1:06pm ibuprofen 20 mg/ml oral suspension (14 sources) Nonsteroidal Anti-inflammatory Drug Start: 07-20-2020 End: 09-22-2020 take 500 mg by mouth every six hours as needed for pain Ibuprofen 100 MG/5 ML suspension Discontinued 500 mg PO EVERY 6 HOURS NEEDED as needed for Pain Score 4-10/10 0 July 20, 2020 12:00am September 22, 2020 11:10am LORazepam 1 mg oral tablet (14 sources) Benzodiazepine Start: 08-12-2018 End: 04-29-2020 take 1 tablet by mouth three times daily as needed for anxiety Lorazepam 1 MG tablet Discontinued 1 mg PO THREE TIMES A DAY as needed for Anxiety 10 August 12, 2018 7:54pm April 29, 2020 2:59pm metFORMIN hydrochloride 500 mg oral tablet (14 sources) Biguanide Start: 05-17-2018 End: 07-16-2021 take 1 tablet by mouth at bedtime Metformin 500 mg tablet Discontinued 500 mg PO AT BEDTIME May 17, 2018 1:00am July 16, 2021 10:10am Multivitamin tablet (9 sources) Start: 07-16-2021 End: 11-12-2023 Multivitamin tablet Discontinued 1 {tbl} PO DAILY July 16, 2021 12:00am November 12, 2023 1:06pm ondansetron 4 mg disintegrating oral tablet (14 sources) Serotonin-3 Receptor Antagonist Start: 07-26-2020 End: 09-22-2020 take 1 tablet by mouth every eight hours as needed for nausea Ondansetron 4 MG tablet Discontinued 4 mg PO EVERY 8 HOURS NEEDED as needed for Nausea July 26, 2020 12:00am September 22, 2020 11:10am phentermine hydrochloride 37.5 mg oral capsule (9 sources) Sympathomimetic Amine Anorectic Start: 11-12-2023 End: 11-24-2024 take 1 capsule by mouth once daily 30 minutes after breakfast Phentermine 37.5 mg capsule Discontinued 37.5 mg PO DAILY November 12, 2023 12:00am November 24, 2024 8:03am must administer 30 minutes before or 1-2 hours after breakfast Problems Problem Classification Problem Date Documented Da te Episodic/Chronic Acute and chronic tonsillitis (19 sources) Chronic tonsillitis; Translations: [Chronic tonsillitis] 07-22-2022 Chronic Anxiety disorders (9 sources) Anxiety; Translations: [Anxiety disorder, unspecified] 07-22-2022 Chronic Hemorrhage during ; abruptio placenta; placenta previa (11 sources) Threatened miscarriage; Translations: [Threatened ] Onset: 12-13-2024 12-08-2024 Episodic Comment on above: 1 cm with yolk sac suspect missed ab- d iscussed fu US thursday and proceed with Immunizations and screening for infectious disease (5 sources) Patient encounter status; Translations: [Encounter for screening for COVID-19] Episodic Menstrual disorders (17 sources) Irregular periods; Translations: [Irregular menstruation, unspecified] Chronic Comment on above: provera challenge pr n Other aftercare (1 source) Surgical follow-up; Translations: [Encounter for follow-up examination after completed treatment for conditions other than malignant neoplasm] 01-04-2025 Episodic Other complications of (5 sources) Spotting per vagina in ; Translations: [Spotting complicating , unspecified trimester] 12-07-2024 Episodic Comment on above: HCG x 2, TVUS Other complications of (10 sources) Missed miscarriage; Translations: [Missed ] 12-15-2024 Episodic Comment on above: plan suction d and c thursday afternoon- repeat one more ultrasound for additional confirmation thursday afternoon suction d and c Other complications of (2 sources) Missed ; Translations: [Missed ] Onset: 12-30-2024 Episodic Other complications of (2 sources) Spotting complicating , unspecified trimester; Translations: [Spotting complicating , unspecified trimester] Onset: 12-07-2024 Episodic Other lower respiratory disease (14 sources) Snoring; Translations: [Snoring] 07-22-2022 Episodic Other screening for suspected conditions (not mental disorders or infectious disease) (1 source) Encounter for screening for malignant neoplasm of cervix; Translations: [Encounter for screening for malignant neoplasm of cervix] Onset: 12-02-2024 Episodic Other upper respiratory infections (20 sources) Acute upper respiratory infection; Translations: [Acute upper respiratory infection, unspecified] Episodic Sprains and strains (14 sources) Sprain of ankle; Translations: [Sprain of unspecified ligament of unspecified ankle, initial encounter] 08-22-2016 Episodic Results Test Name Value Interpretation Reference Range Facility Assistant Media Buyer Office Visit Reporton 01-04-2025 Assistant Media Buyer Office Visit Report [facility] [address], [address] [place] [address] OFFICE VISIT Date of Service: 01/04/25 MR#: [id number] Acct: [id number] Name: KWAN WATKINS Rep #: [id number] : 1995 Provider: DAR nicole Age/Sex: 29/F [place] [facility] [place]: Signed Intake Vital Signs 12/19/24 14:40 01/04/25 15:05 01/04/25 15:07 Height 5 ft 5 in 5 ft 5 in 5 ft 5 in Weight: 197 lb 4 oz BMI 32.8 BP 125/77 H Intake Visit Reasons: 2wk D C Chief Complaint: 2 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 Repairer Auto Clocks Required: No Is patient in pain?: No Allergies No Known Allergies Allergy (Verified 01/04/25 15:05) Medications ???Medication ???Instructions ???Recorded ???Confirmed ???Type NK 11/24/24 01/04/25 History Is last menstrual period known: No Post menopausal: No Patient : No : No [facility] Medical History Non-smoker Anxiety History of PCOS Fatigue Surgical History History of tonsillectomy Family History Grandfather Diabetes Heart disease Myocardial infarction Alzheimer's dementia Social History household members: spouse current occupational status: employed current occupation: [employer] Smoking Status: Never smoker alcohol intake: never substance use type: does not use what type of physical activity do you participate in: running and weight training frequency: 1-2 times per week seatbelt use: always do you feel safe at home: Yes additional social history: : [place] [facility] 2wk D C Details: KWAN WATKINS is a 29 year old who presents for 2 week follow up D C for spontaneous miscarriage. She is doing well emotionally and physically. She had light bleeding for just over a week post procedure and none since. She and are have a 2nd wedding ceremony in January and will use condoms until after that is over. She is taking vitamins History 1 Elective abortions Hx Para 0 Spontaneous abortions 1 Hx # Term Pregnancies Ectopic pregnancies Hx # Pregnancies Multiple births # of living children 0 Past Pregnancies Del. Date Name GA/Weeks Outcome Route Bth Weight Infant Gen Labor Lgth Anesthesia Del Locatn Provider FOB 12/19/24 5 spontaneous Delivery Date: 12/19/24 Last Updated by: THOMAS Domingo C w/SM ROS Const Constitutional: Reports system reviewed and no additional complaints, except as documented Eyes Eyes: Reports system reviewed and no additional complaints, except as documented GI GI: Denies abdominal pain or change in bowel habits : Reports as per HPI Exam Const General: cooperative and no acute distress Orientation: oriented x3 HENMT Head: normal to inspection and normocephalic Eyes General: appearance normal, both eyes and all related structures Neck Neck: normal visual inspection Resp Effort Inspection: normal respiratory effort Neuro Cognition: normal cognition Speech: speech normal Psych Appearance: grossly normal Mood: congruent mood Affect: normal affect Speech and Movement: speech and movement normal Attitude: cooperative Judgment: judgment good Coding Level of Care Code No Charge Diagnoses Missed O02.1 Postop check Z09 Assessment and Plan Assessment and Plan (1) Missed : Status: Acute Comment: suction d and c (2) Postop check: Orders: Orders hCG Titer Quant., Serum Today O02.1 - Missed Plan quant serum HCG Will use condoms until ready to conceive again RTO prn, annual exam, positive test 01/04/25 1544 Date Margi Pedro DEEP FAT COOK FRY DEEP FAT COOK FRY-C Cosigner Signature: Date (if applicable) CC: Dr. Joan Hall MD Normal [facility] Serum human chorionic gonado tropin detection for pregnancyOrdered By: Margi Pedro on 01-04-2025 HCG ( test) Ql 7 mIU/mL <9 [facility] Comment on above: Gestational Age0.2-1 Week: 5-50 mIU/mL1-2 Weeks: 50-500 mIU/mL2-3 Weeks: 100-5000 mIU/mL3-4 Weeks: 500-10,000 mIU/mL4-5 Weeks:1000-50,000 mIU/mL5-6 Weeks: 10,000-100,000 mIU/mL6-8 Weeks: 15,000-200,000 mIU/mL2-3 Months:10,000-100,000 mIU/mL hCG Titer Quant., Serumon HCG QUANT. 7 mIU/mL Normal <9 non-preg [facility] Comment on above: Result Comment: Gest ational Age 0.2-1 Week: 5-50 mIU/mL 1-2 Weeks: 50-500 mIU/mL 2-3 Weeks: 100-5000 mIU/mL 3-4 Weeks: 500-10,000 mIU/mL 4-5 Weeks:1000-50,000 mIU/mL 5-6 Weeks: 10,000-100,000 mIU/mL 6-8 Weeks: 15,000-200,000 mIU/mL 2-3 Months:10,000-100,000 mIU/mL Performed By: #### L 700.8000 #### [facility] [address] [place], [address] CBC-Complete Blood Cnt No Di ffon 12-19-2024 Erythrocyte distribution width (RBC) [Ratio] 13.0 % Normal 11.6-14.6 [facility] Comment on above: Performed By: #### L 700.8000 #### [facility] [address] [place], [address] Hematocrit (Bld) [Volume fraction] 36.8 % Low 37-47 [facility] Comment on above: Performed By: #### L 700.8000 #### [facility] [address] [place], [address] Hemoglobin (Bld) [Mass/Vol] 12.7 g/dL Normal 12.0-15.0 [facility] Comment on above: Performed By: #### L 700.8000 #### [facility] [address] [place], [address] MCH (RBC) [Entitic mass] 30.2 pg Normal 27.0-32.0 [facility] Comment on above: Performed By: #### L 700.8000 #### [facility] [address] [place], [address] MCHC (RBC) [Mass/Vol] 34.5 g/dL Normal 32-36 [facility] Comment on above: Performed By: #### L 700.8000 #### [facility] [address] [place], [address] MCV (RBC) [Entitic vol] 87.6 fL Normal 81-99 [facility] Comment on above: Performed By: #### L 700.8000 #### [facility] [address] [place], [address] Platelet mean volume (Bld) [Entitic vol] 11.0 fL Normal 6.2-12.0 [facility] Comment on above: Performed By: #### L 700.8000 #### [facility] [address] [place], [address] Platelets (Bld) [#/Vol] 211 10*3/uL Normal 150-450 [facility] Comment on above: Performed By: #### L 700.8000 #### [facility] [address] [place], [address] RBC (Bld) [#/Vol] 4.20 10*6/uL Normal 4.2-5.4 [facility] Comment on above: Performed By: #### L 700.8000 #### [facility] [address] [place], [address] RDW SD 41.7 fl Normal 35.1-43.9 [facility] Comment on above: Performed By: #### L 700.8000 #### [facility] [address] [place], [address] WBC (Bld) [#/Vol] 6.8 10*3/uL Normal 4.4-11.0 [facility] Comment on above: Performed By: #### L 700.8000 #### [facility] [address] [place], [address] Discharge Instructionon 11-26 Discharge Instruction [facility] Medical Records Department [address] [place] [address] Instructions for Home/Discharge Instructions 12/19/24 1542 MR#: [id number] Acct: [id number] Name: KWAN WATKINS Rep #: [id number] : 1995 29 From: Joan Hall MD PCP: Dr. Myra Gayle DO Status:REG SDC Discharge Instructions DC O2, CPAP, BIPAP needs Home O2 Discharge instructions: No Dressing / Incision Discharge Activity: Return to Normal Activity, May Shower and May Take a Tub Bath (after 1 week) May resume sexual activity in: 1-2 weeks Weight Bearing Status: Weight bearing as tolerated Lifting Restrictions: none Dressing / Incision Call your doctor if you observe: Fever of 101 or Higher, Using more than 1 pad per hour, Shortness of breath and Uncontrolled pain Follow Up Care Please Follow Up With: Joan Hall MD When: Call [phone] to schedule appointment. Test Results: Test results from this visit will be discussed in further detail at your follow-up appointment, if applicable. Discharge Plan Admission Attending Provider: Joan Hall Primary Care Provider: Myra Gayle Instructions Print Language: Hong Konger Discharge Orders/Prescriptions Prescriptions: No Action NK Referrals / Follow Up: Myra Gayle DO [Primary Care Provider] - Disposition Disposition (needs filled in before D/C Order can be placed): Home, Self Care 12/19/24 2112 Joan Hall MD CC: Dr. Myra Gayle DO Signed Normal [facility] Erythrocyte distribution wid th ratioOrdered By: Joan Hall on 12-19-2024 Erythrocyte distribution width (RBC) [Ratio] 13.0 % 11.6-14.6 [facility] Erythrocyte distribution wid th standard deviationOrdered By: Joan Hall on 12-19-2024 Erythrocyte distribution width (RBC) [Ratio] 41.7 fl 35.1-43.9 [facility] H AND P Exam - OB/GYNon 11-26 H&P Exam - FREIGHT SEPARATOR [facility] Medical Records Department [address] [place] [address] H P Exam - FREIGHT SEPARATOR 12/19/24 1456 MR#: [id number] Acct: [id number] Name: KWAN WATKINS Rep #: [id number] : 1995 29 From: Joan Hall MD PCP: Dr. Myra Gayle, DO Status:[facility] Location: [place] [address] HPI - General HPI Narrative KWAN WATKINS, is a 29 F who presents for early miscarriage. she has had intermittent vaginal bleeding and some cramping. US has showed 5weeks 6days with 3mm CRL with no FHT present. repeat ultrasound today confirms- 2.5mm pole no FHT GS still measuring 5w6d with large subchorionic hematoma present PFSH PFSH Medical History Anxiety History of PCOS Fatigue Home Medications ???Medication ???Instructions ???Recorded ???Last Taken ???Type NK 11/24/24 Unknown History Allergy/AdvReac Type Severity Reaction Status Date / Time No Known Allergies Allergy Verified 12/19/24 14:40 Family History Grandfather Diabetes Heart disease Myocardial infarction Alzheimer's dementia Surgical History History of tonsillectomy Social History household members: spouse current occupational status: employed current occupation: [employer] Smoking Status: Never smoker alcohol intake: never substance use type: does not use what type of physical activity do you participate in: running and weight training frequency: 1-2 times per week seatbelt use: always do you feel safe at home: Yes additional social history: : [place] History 1 Elective abortions Hx Para 0 Spontaneous abortions Hx # Term Pregnancies Ectopic pregnancies Hx # Pregnancies Multiple births # of living children ROS Constitutional Constitutional: Reports systems reviewed and no addt'l complaints, except as documented; Denies as per HPI, change in weight, fatigue, fever(s), malaise, weakness or other Eyes Eyes: Reports systems reviewed and no addt'l complaints, except as documented; Denies as per HPI, change in vision or other ENT HEENT: Reports systems reviewed and no addt'l complaints, except as documented Respiratory/Chest Respiratory/Chest: Reports systems reviewed and no addt'l complaints, except as documented Gastrointestinal Gastrointestinal: Reports systems reviewed and no addt'l complaints, except as documented and as per HPI Genitourinary Genitourinary: Reports as per HPI Musculoskeletal Musculoskeletal: Reports systems reviewed and no addt'l complaints, except as documented Neurologic Neurologic: Reports systems reviewed and no addt'l complaints, except as documented Psychiatric Psychiatric: Reports systems reviewed and no addt'l complaints, except as documented Endocrine Endocrinology: Reports systems reviewed and no addt'l complaints, except as documented Hematologic/Lymphati c Hematologic/Lymphati c: Reports systems reviewed and no addt'l complaints, except as documented Vital Signs Vital Signs Vital Signs: 12/19/24 14:40 12/19/24 14:40 Temperature 98.4 F Temperature Source Temporal Pulse Rate 79 Respiratory Rate 18 Respiratory Pattern Normal Blood Pressure 102/66 Blood Pressure Mean 78 Blood Pressure Source Monitor Blood Pressure Position Semi-Fowlers Blood Pressure Location Left Arm Pulse Ox 100 Oxygen Delivery Method Room Air Weight Weight: 198 lb 6.656 oz Body Mass Index (BMI) 33.0 Physical Exam Const alert, oriented x3 and no apparent distress HEENT normocephalic Head and Scalp: atraumatic Eyes EOMs intact bilaterally and conjunctivae normal Neck full ROM, no lymphadenopathy, supple and thyroid normal General: trachea midline Lymph Lymphatic: no lymphadenopathy noted Resp normal respiratory effort, no retractions, no use of accessory muscles and clear to auscultation bilaterally Cardio regular rhythm GI normal to inspection, nondistended, normoactive bowel sounds, soft to palpation, non-distended and no masses Inspection: Negative for abdominal distention Back/Spine no CVA tenderness Extremity normal to inspection Skin no rashes or lesions noted Neuro moves all extremities and deep tendon reflexes 2+ bilaterally Psych mental status grossly normal Labs Labs Labs: Blood Type A POSITIVE Antibody Screen Pending Hct 36.8 % (37-47) L Hgb 12.7 g/dL (12.0-15.0) Obstetrics Ultrasound Chlamydia DNA (DANIA) Negative (Negative) N.gonorrhoeae DNA (DANIA) Negative (Negative) Assessment Plan (1) Missed : COMMENT: plan suctio (more content not included)... Normal [facility] Hematocrit Auto (Bld) [Volum e fraction]Ordered By: Joan Hall on 12-19-2024 Hematocrit (Bld) [Volume fraction] 36.8 % Low 37-47 [facility] Hemoglobin measurementOrdere d By: Joan Hall on 12-19-2024 Hemoglobin (Bld) [Mass/Vol] 12.7 g/dL 12.0-15.0 [facility] MCV (mean corpuscular volume ) determinationOrdered By: Joan Hall on 12-19-2024 MCV (RBC) [Entitic vol] 87.6 fL 81-99 [facility] MR/POSTOP.ANE 12-19-2024 MR/POSTOP.[facility] Medical Records Department [address] [place] [address] Anesthesia Postop Eval I 12/19/24 162 MR#: [id number] Acct: [id number] Name: KWAN WATKINS Rep #: [id number] : 1995 29 From: Antonia Soriano CRNA PCP: Dr. Myra Gayle, DO Status:REG SDC Y Race: C Location: [place] [address] Anesthesia: Postop Eval I Current Vital Signs Temperature: 97.3 F Pulse Rate: 86 Blood Pressure: 109/61 Respiratory Rate: 16 Pulse Ox: 100 Assessment Airway patent: Yes Spontaneous unlabored respirations: Yes Mental status: Awake and Calm nausea: No Vomiting: No Anesthesia Complication: No Fluid Hydration Crystalloid volume administer (ml): 900 Total IV fluid infused: 900 Progress Note Anesthesia document: Postop Eval 1 completed: Yes 12/19/241621 Date Antonia Kobylanski DATA OPERATIONS DIRECTOR Cosigner Signature: Date CC: Signed Normal [facility] [id number] 12-19-2024 MR/POSTOPAN2 [facility] Medical Records Department [address] [place] [address] Anesthesia Postop Eval II 12/19/241922 MR#: [id number] Acct: [id number] Name: KWAN WATKINS Rep #: [id number] : 1995 29 From: Brett Mattson MD PCP: Dr. Myra Gayle, DO Status:[facility] Y Race: C Location: [facility] [place] Anesthesia Postop Eval I Sum Postop Eval Completion status Anesthesia document: Postop Eval 1 completed: Yes Anesthesia Postop Eval I Summary Anesthesia Postop Eval I Summary: Anesthesia Postop Eval I: Assessment Summary Airway patent Yes 12/19/24 16:22 DATA OPERATIONS DIRECTOR.SKOBY Spontaneous unlabored Yes 12/19/24 16:22 DATA OPERATIONS DIRECTOR.SKOBY respirations Mental status Awake,Calm 12/19/24 16:22 DATA OPERATIONS DIRECTOR.SKOBY nausea No 12/19/24 16:22 DATA OPERATIONS DIRECTOR.SKOBY Vomiting No 12/19/24 16:22 DATA OPERATIONS DIRECTOR.SKOBY Anesthesia Postop Eval I: Fluid Summary Crystalloid volume administer 900 12/19/24 16:22 DATA OPERATIONS DIRECTOR.SKOBY (ml) Colloids volume administered ( ml) Blood Product volume administered (ml) Total IV fluid infused 900 12/19/24 16:22 DATA OPERATIONS DIRECTOR.SKOBY Anesthesia Postop Eval I: Summary Notes Anesthesia Complication No 12/19/24 16:22 DATA OPERATIONS DIRECTOR.SKOBY Anesthesia Complication Comment: Post-operative progress note Anesthesia: Postop Eval II Evaluation Mental status: Awake Pain Level: 0 nausea: No Vomiting: No Complications Anesthesia Complication: No 12/19/241922 Date Brett Yerger MD Cosigner Signature: Date CC: Signed Normal [facility] Mean corpuscular hemoglobin (MCH) determinationOrdered By: Joan Hall on 12-19-2024 MCH (RBC) [Entitic mass] 30.2 pg 27.0-32.0 [facility] Mean corpuscular hemoglobin concentration (MCHC) determinationOrdered By: Joan Hall on 12-19-2024 MCHC (RBC) [Mass/Vol] 34.5 g/dL 32-36 [facility] Mean platelet volume determi nationOrdered By: Joan Hall on 12-19-2024 Platelet mean volume (Bld) [Entitic vol] 11.0 fL 6.2-12.0 [facility] Operative Reporton Operative Report [facility] Medical Records Department [address] [place] [address] Operative Report 12/19/24 1540 MR#: [id number] Acct: [id number] Name: KWAN WATKINS Rep #: [id number] : 1995 29 From: oJan Hall MD PCP: Dr. Myra Gayle, DO Status:[facility] Location: [place] [address] Problems Associated Problem List Diagnoses (1) Missed : Procedures Urinary/Genital 52xxx-59xxx: 10546 Surg Trtmt missed Ab, 1TM Operative Report (Standard) Operative Information Date of Procedure: 12/19/24 Pre-Operative Diagnosis: see problem list comments Post-Operative Diagnosis: same Surgery/Procedure Performed: suction dilation and curettage heel seat fitter: No Type of Anesthesia: IV Sedation and Local RN Documented Start/Stop Times: Operation Date: 12/19/24 15:30 Case Time Into Pre-Op 12/19/24 14:13 Out of Pre-Op 12/19/24 15:32 Anesthesia Start 12/19/24 15:33 Into Room 12/19/24 15:33 Procedure Start 12/19/24 15:53 Procedure Start Time: 15:53 Procedure Stop Time: 16:07 Select all DRAINS/GRAFTS/IMPLAN TS that apply: None Estimated Blood Loss: 50 Specimen collected: Yes Description of specimen(s) removed: retained POC Description of surgery: Patient was taken to the operating room and placed under MAC local anesthesia. She was prepped and draped in the normal sterile fashion the dorsal lithotomy position. Bladder was drained of clear urine and anterior lip of the cervix was grasped and the uterus sounded to 9 cm. Cervix was progressively dilated to allow passage of a [] suction curette. Progressive passes were made removing the retained products of conception without complication. Sharp curettage confirmed complete removal of the retained products. All instruments were removed from the vagina and excellent hemostasis was noted and the patient was taken to recovery in stable condition. Surgical Findings: 6 week missed ab Complications Complications: No 12/19/24 1607 Cosigner Signature (if applicable): CC: Dr. Myra Gayle DO; Dr. Joan Hall MD Signed Normal [facility] Platelet countOrdered By: Dano Hall on 12-19-2024 Platelets (Bld) [#/Vol] 211 10*3/uL 150-450 [facility] RBC Auto (Bld) [#/Vol]Ordere d By: Joan Hall on 12-19-2024 RBC (Bld) [#/Vol] 4.20 10*6/uL 4.2-5.4 [facility] Surgery Specimen Level Brett 12-19-2024 Surgery Specimen Level IV Patient Age/Sex Location Account Attending Physician KWAN WATKINS [facility] [id number] Dr. Joan Hall MD Specimen: [id number] Received: 12/19/24 Status: BRANDY Moreno Num: [id number] Spec Type: PROD CONC Subm Dr: Dr. Joan Hall MD HEADER OPERATION: Dilation and curettage, suction (NOT ANORA) PRE-OP DIAGNOSIS: Missed TISSUE SUBMITTED: A- Products of conception MICROSCOPIC DIAGNOSIS A. Uterus, suction curettage: - Hypersecretory endometrium, decidua, and immature chorionic villi with hydropic degeneration, consistent with products of conception. MICROSCOPIC DESCRIPTION Slides are reviewed. GROSS DESCRIPTION A. Received in formalin labeled with the patient's name and date of . Designated as products of conception is a 16.3 g, 6.1 x 5.5 x 0.9 cm aggregate of harris-pink soft tissue fragments, mucoid material, and papilliferous tissue fragments (suspicious for chorionic villi). parts are not present. Graining Press Operator sections are submitted in 2 cassettes. AL 12/20/2024 CPT:54173 ADDENDUM Addendum 1 Entered: 01/04/25 This addendum is provided at Margi Garcia's request: There is no evidence of molar in these sections. Addendum Signed (signature on file) Dr. Mariza Skinner MD 01/04/25816 Patient Age/Sex Location Account Attending Physician KWAN WATKINS 29/ [facility] [id number] Dr. Joan Hall MD Signed (signature on file) Dr. Mariza Skinner MD 12/23/24 1904 Normal [facility] Comment on above: Performed By: #### P SUIV #### [facility] Laboratory [address] [facility]. [place], [place], [address] Type AND Screen - PAT ONLYon 12-19-2024 Ab SCREEN GEL Negative Normal [facility] Comment on above: Order Comment: Surge ry Date: 12/19/24 15:30Reason for Laboratory Test [id number] ANORASUCTION D C Performed By: #### L 700.8000 #### [facility] Laboratory [facility] [facility]. [place], [place], [address] White blood cell (WBC) count Ordered By: Joan Hall on 12-19-2024 WBC (Bld) [#/Vol] 6.8 10*3/uL 4.4-11.0 [facility] Assistant Media Buyer Office Visit Reporton 12-15-2024 Assistant Media Buyer Office Visit Report [facility] [address], [address] [place] [address] OFFICE VISIT Date of Service: 12/15/24 MR#: [id number] Acct: [id number] Name: KWAN WATKINS Rep #: [id number] : 1995 Provider: Dr. 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 Is patient in pain?: Yes [...] spouse current occupational status: employed current occupation: [employer] Smoking Status: Never smoker alcohol intake: never substance use type: does not use what type of physical activity do you participate in: running and weight training frequency: 1-2 times per week seatbelt use: always do you feel safe at home: Yes additional social history: : Slick ANA 1 wk f/u Details: KWAN WATKINS is [...] Cosigner Signature: Date (if applicable) CC: Normal [facility] Serum human chorionic gonado tropin detection for pregnancyOrdered By: Lindsay Roa on 12-09-2024 HCG ( test) Ql 2922 mIU/mL High <9 [facility] Comment on above: Gestational Age0.2-1 Week: 5-50 mIU/mL1-2 Weeks: 50-500 mIU/mL2-3 Weeks: 100-5000 mIU/mL3-4 Weeks: 500-10,000 mIU/mL4-5 Weeks:1000-50,000 mIU/mL5-6 Weeks: 10,000-100,000 mIU/mL6-8 Weeks: 15,000-200,000 mIU/mL2-3 Months:10,000-100,000 mIU/mL hCG Titer Quant., Serumon HCG QUANT. 2922 mIU/mL High <9 non-preg [facility] Comment on above: Result Comment: Gest ational Age 0.2-1 Week: 5-50 mIU/mL 1-2 Weeks: 50-500 mIU/mL 2-3 Weeks: 100-5000 mIU/mL 3-4 Weeks: 500-10,000 mIU/mL 4-5 Weeks:1000-50,000 mIU/mL 5-6 Weeks: 10,000-100,000 mIU/mL 6-8 Weeks: 15,000-200,000 mIU/mL 2-3 Months:10,000-100,000 mIU/mL Performed By: #### L 400.0001 #### [facility] Laboratory [address] [place], [address] Assistant Media Buyer Office Visit Reporton 12-08-2024 Assistant Media Buyer Office Visit Report [facility] [address], [address] [place] [address] OFFICE VISIT Date of Service: 12/08/24 MR#: [id number] Acct: [id number] Name: KWAN WATKINS Rep #: [id number] : 1995 Provider: Dr. 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 Is patient in pain?: Yes [...] spouse current occupational status: employed current occupation: [employer] Smoking Status: Never smoker alcohol intake: never substance use type: does not use what type of physical activity do you participate in: running and weight training frequency: 1-2 times per week seatbelt use: always do you feel safe at home: Yes additional social history: : Slick HPI ER f/u see US (Abnormal shaped sac), [...] healthy appearing, comfortable and no acute distress HENMT Head: normal to inspection and normocephalic Neck [...] in 1 week 12/08/24 1604 Date Joan Hall MD Cosigner Signature: Date (if applicable) CC: Normal [facility] Absolute lymphocyte countOrd ered By: Nayan Barcenas on 12-07-2024 Lymphocytes Auto (Unsp spec) [#/Vol] 2.10 10*3/uL 0.83-4.51 [facility] Absolute neutrophil countOrd ered By: Nayan Barcenas on 12-07-2024 Neutrophils (Bld) [#/Vol] 4.1 10*3/uL 2.0-7.7 [facility] Anion gap in Serum or Plasma Ordered By: Nayan Barcenas on 12-07-2024 Anion gap [Moles/Vol] 10 mmol/L 5-15 [facility] Automated lymphocyte count a s percentage of total leukocytesOrdered By: Nayan Barcenas on 12-07-2024 Lymphocytes/100 WBC Auto (Unsp spec) 28.9 % 19-41 [facility] [id number] 12-07-2024 ABO and Rh group Nom (Bld) Blood group A Rh(D) positive Normal [facility] Comment on above: Performed By: #### L 400.0001 #### [facility] Laboratory [address] [place], [place], [id number] BUN/creatinine ratioOrdered By: Nayan Barcenas on 12-07-2024 Urea nitrogen/Creatinine [Mass ratio] 12.4 mg/mg 10-20 [facility] Basic Metabolic Profile (BMP )on 12-07-2024 Calcium [Mass/Vol] 8.6 mg/dL Normal 7.6-11.0 [facility] Comment on above: Performed By: #### L 400.0001 #### [facility] Laboratory [address] [place], [place], [address] Basophil percentageOrdered B y: Nayan Barcenas on 12-07-2024 Basophils/100 WBC (Bld) 1.1 % High 0-1 [facility] Bilirubin Test strip Ql (U)O rdered By: Nayan Barcenas on 12-07-2024 Bilirubin Ql (U) Negative Negative [facility] CBC W/Diff, Automatedon 11-25 Absolute Lymph 2.10 X10 3/uL Normal 0.83-4.51 [facility] Comment on above: Performed By: #### L 400.0001 #### [facility] Laboratory [address] [place], [place], [address] Absolute Neut 4.1 X10 3/uL Normal 2.0-7.7 [facility] Comment on above: Performed By: #### L 400.0001 #### [facility] Laboratory [address] [place], [address] Basophils/100 WBC (Bld) 1.1 % High 0-1 [facility] Comment on above: Performed By: #### L 400.0001 #### [facility] [address] [place], [address] Eosinophils/100 WBC (Bld) 5.4 % High 0-5 [facility] Comment on above: Performed By: #### L 400.0001 #### [facility] [address] [place], [address] Erythrocyte distribution width (RBC) [Ratio] 13.2 % Normal 11.6-14.6 [facility] Comment on above: Performed By: #### L 400.0001 #### [facility] Laboratory [address] [place], [address] Hematocrit (Bld) [Volume fraction] 38.1 % Normal 37-47 [facility] Comment on above: Performed By: #### L 400.0001 #### [facility] [address] [place], [address] Hemoglobin (Bld) [Mass/Vol] 12.8 g/dL Normal 12.0-15.0 [facility] Comment on above: Performed By: #### L 400.0001 #### [facility] [address] [place], [address] IG% 0.400 Normal 0.0-0.9 [facility] Comment on above: Result Comment: IG% - Immature Granulocytes (promyelocytes, myelocytes and metamyelocytes) > 1% indicates that a LEFT SHIFT is Present. Performed By: #### L 400.0001 #### [facility] [address] [place], [address] Lymphocytes/100 WBC (Bld) 28.9 % Normal 19-41 [facility] Comment on above: Performed By: #### L 400.0001 #### [facility] Laboratory [address] [place], [address] MCH (RBC) [Entitic mass] 29.8 pg Normal 27.0-32.0 [facility] Comment on above: Performed By: #### L 400.0001 #### [facility] Laboratory [address] [place], [address] MCHC (RBC) [Mass/Vol] 33.6 g/dL Normal 32-36 [facility] Comment on above: Performed By: #### L 400.0001 #### [facility] [address] [place], [address] MCV (RBC) [Entitic vol] 88.8 fL Normal 81-99 [facility] Comment on above: Performed By: #### L 400.0001 #### [facility] [address] [place], [address] Monocytes/100 WBC (Bld) 8.5 % Normal 0-10 [facility] Comment on above: Performed By: #### L 400.0001 #### [facility] [address] [place], [address] Neutrophils/100 WBC (Bld) 55.7 % Normal 47-70 [facility] Comment on above: Performed By: #### L 400.0001 #### [facility] [address] [place], [address] Nucleated RBC (Bld) [#/Vol] 0 10*3/uL Normal 0-5 [facility] Comment on above: Performed By: #### L 400.0001 #### [facility] Laboratory [address] [place], [address] Platelet mean volume (Bld) [Entitic vol] 10.9 fL Normal 6.2-12.0 [facility] Comment on above: Performed By: #### L 400.0001 #### [facility] Laboratory [address] [place], [address] Platelets (Bld) [#/Vol] 229 10*3/uL Normal 150-450 [facility] Comment on above: Performed By: #### L 400.0001 #### [facility] Laboratory [address] [place], [address] RBC (Bld) [#/Vol] 4.29 10*6/uL Normal 4.2-5.4 [facility] Comment on above: Performed By: #### L 400.0001 #### [facility] [address] [place], [address] RDW SD 43.0 fl Normal 35.1-43.9 [facility] Comment on above: Performed By: #### L 400.0001 #### [facility] Laboratory [address] [place], [address] WBC (Bld) [#/Vol] 7.3 10*3/uL Normal 4.4-11.0 [facility] Comment on above: Performed By: #### L 400.0001 #### [facility] Laboratory [address] [place], [address] Carbon dioxide, total [Moles /volume] in Central venous bloodOrdered By: Nayan Barcenas on 12-07-2024 CO2 [Moles/Vol] 22.3 mmol/L 21.0-32.0 [facility] Chloride assayOrdered By: Kan Barcenas on 12-07-2024 Chloride [Moles/Vol] 105 mmol/L 98-108 [facility] Emergency Department Summary on 12-07-2024 Emergency Department Summary [facility] Medical Records Department [address] [place] [address] Emergency Department Summary 12/07/24 MR#: [id number] Acct: [id number] Name: WATKINSKWAN HOWIE Rep #: [id number] : 1995 29 From: Nayan Barcenas DO [...] spouse current occupational status: employed current occupation: [employer] Smoking Status: Never smoker alcohol intake: never [...] reviewed, Vital signs reviewed Constitutional: please see mdm HENT: MMM Eyes: Pupils equal round and [...] MEDICAL DECISION MAKING: Chief Complaint: please see [facility] External records reviewed: Reviewed prior imaging studies: No recent advanced ultrasound of the abdomen noted. Factors affecting care: As per HPI Social determinants of health: none History obtained from others: none Consults: none [facility] Narrative: The patient was initially hemodynamically [...] No def (more content not included)... Normal [facility] Eosinophil percentageOrdered By: Nayan Barcenas on 12-07-2024 Eosinophils/100 WBC (Bld) 5.4 % High 0-5 [facility] Erythrocyte distribution wid th ratioOrdered By: Nayan Barcenas on 12-07-2024 Erythrocyte distribution width (RBC) [Ratio] 13.2 % 11.6-14.6 [facility] Erythrocyte distribution wid th standard deviationOrdered By: Nayan Barcenas on 12-07-2024 Erythrocyte distribution width (RBC) [Ratio] 43.0 fl 35.1-43.9 [facility] Glomerular filtration rate ( GFR) estimation/1.73 sq m using serum, plasma, or whole bOrdered By: Nayan Barcenas on 12-07-2024 GFR/1.73 sq M.predicted among non-blacks MDRD (S/P/Bld) [Vol rate/Area] 94 mL/min/{1.73_m2} >60 [facility] Comment on above: mL/min/1.73m2 CKD-EP I Creatinine Equation (2020) Hematocrit Auto (Bld) [Volum e fraction]Ordered By: Nayan Barcenas on 12-07-2024 Hematocrit (Bld) [Volume fraction] 38.1 % 37-47 [facility] Hemoglobin measurementOrdere d By: Nayan Barcenas on 12-07-2024 Hemoglobin (Bld) [Mass/Vol] 12.8 g/dL 12.0-15.0 [facility] Immature granulocytes/100 WB C Auto (Bld)Ordered By: Nayan Barcenas on 12-07-2024 Immature granulocytes/100 WBC (Bld) 0.400 % 0.0-0.9 [facility] Comment on above: IG% - Immature Granu locytes (promyelocytes, myelocytes and metamyelocytes) > 1% indicates that a LEFT SHIFT is Present. Ketones Test strip Ql (U)Ord ered By: Nayan Barcenas on 12-07-2024 Ketones Ql (U) Negative Negative [facility] MCV (mean corpuscular volume ) determinationOrdered By: Nayan Barcenas on 12-07-2024 MCV (RBC) [Entitic vol] 88.8 fL 81-99 [facility] Mean corpuscular hemoglobin (MCH) determinationOrdered By: Nayan Barcenas on 12-07-2024 MCH (RBC) [Entitic mass] 29.8 pg 27.0-32.0 [facility] Mean corpuscular hemoglobin concentration (MCHC) determinationOrdered By: Nayan Barcenas on 12-07-2024 MCHC (RBC) [Mass/Vol] 33.6 g/dL 32-36 [facility] Mean platelet volume determi nationOrdered By: Nayan Barcenas on 12-07-2024 Platelet mean volume (Bld) [Entitic vol] 10.9 fL 6.2-12.0 [facility] Microscopic analysis of urin e for red blood cells (RBC)Ordered By: Nayan Barcenas on 12-07-2024 Microscopic analysis of urine for red blood cells (RBC) 0 SEEN /hpf 0-5 [facility] Monocyte percentageOrdered B y: Nayan Barcenas on 12-07-2024 Monocytes/100 WBC (Bld) 8.5 % 0-10 [facility] Mucus LM Ql (Urine sed)Order ed By: Nayan Barcenas on 12-07-2024 Mucus Ql (Urine sed) 0 SEEN /hpf [facility] Neutrophil percentageOrdered By: Nayan Barcenas on 12-07-2024 Neutrophils/100 WBC (Bld) 55.7 % 47-70 [facility] Nitrite Test strip Ql (U)Ord ered By: Nayan Barcenas on 12-07-2024 Nitrite Ql (U) Negative Negative [facility] Nucleated red blood cell per centageOrdered By: Nayan Barcenas on 12-07-2024 Nucleated RBC/100 WBC (Bld) [Ratio] 0 % 0-5 [facility] Platelet countOrdered By: Kan Barcenas on 12-07-2024 Platelets (Bld) [#/Vol] 229 10*3/uL 150-450 [facility] Potassium measurement (mass/ volume)Ordered By: Nayan Barcenas on 12-07-2024 Potassium (Unsp spec) [Mass/Vol] 4.2 mmol/L 3.3-5.1 [facility] Protein Test strip Ql (U)Ord ered By: Nayan Barcenas on 12-07-2024 Protein Ql (U) Negative Negative [facility] RBC Auto (Bld) [#/Vol]Ordere d By: Nayan Barcenas on 12-07-2024 RBC (Bld) [#/Vol] 4.29 10*6/uL 4.2-5.4 [facility] Serum creatinine measurement (mass/volume)Ordered By: Nayan Barcenas on 12-07-2024 Creatinine [Mass/Vol] 0.86 mg/dL 0.70-1.20 [facility] Serum glucose measurement (m ass/volume)Ordered By: Nayan Barcenas on 12-07-2024 Glucose [Mass/Vol] 101 mg/dL High 70-99 [facility] Serum human chorionic gonado tropin detection for pregnancyOrdered By: Nayan Barcenas on 12-07-2024 HCG ( test) Ql 2576 mIU/mL High <9 [facility] Comment on above: Gestational Age0.2-1 Week: 5-50 mIU/mL1-2 Weeks: 50-500 mIU/mL2-3 Weeks: 100-5000 mIU/mL3-4 Weeks: 500-10,000 mIU/mL4-5 Weeks:1000-50,000 mIU/mL5-6 Weeks: 10,000-100,000 mIU/mL6-8 Weeks: 15,000-200,000 mIU/mL2-3 Months:10,000-100,000 mIU/mL Serum or plasma calcium silver urement (mass/volume)Ordered By: Nayan Barcenas on 12-07-2024 Calcium [Mass/Vol] 8.6 mg/dL 7.6-11.0 [facility] Serum or plasma urea nitroge n measurement (mass/volume)Ordered By: Nayan Barcenas on 12-07-2024 Urea nitrogen [Mass/Vol] 11 mg/dL 4-19 [facility] Sodium levelOrdered By: Cedric Barcenas on 12-07-2024 Sodium [Moles/Vol] 137 mmol/L 133-145 [facility] Squamous epithelial cells de tection in urine sediment by light microscopyOrdered By: Nayan Barcenas on 12-07-2024 Epithelial cells.squamous LM Ql (Urine sed) 0 SEEN /hpf 5-10 [facility] Transvaginal w/Preg USon Transvaginal w/Preg US [facility] [address] [place] [address] Transvaginal w/Preg US MR#: [id number] Acct: [id number] Name: KWAN WATKINS Rep #: [id number] : 1995 F 29 From: Dio hoang MD PCP: Dr. Myra Gayle DO Status: REG ER Study: Transvaginal w/Preg US Date of Exam: 12/07/24 Exam# [id number] Ordering Dr: Nayan Barcenas DO PROCEDURE: TRANSVAGINAL [...] and unremarkable. DIMENSIONS: Parameter Measurement / EGA Mikes Rump Length: 8.3 mm/6 weeks and 6 [...] at this time. Follow-up recommended. Reading Location: [id number] CC: Dr. Myra Gayle DO; Dr. Nayan Barcenas DO Cae Engineer: Signed Normal [facility] [facility] Completeon [facility]-07 BACTERIA 0 SEEN Normal None Seen [facility] Comment on above: Order Comment: COLLE CTOR TO SPECIFY Performed By: #### L 400.0001 #### [facility] [address] [place], [address] EPI,SQUAMOUS 0 SEEN Normal 5-10 [facility] Comment on above: Order Comment: ROMY CTOR TO SPECIFY Performed By: #### L 400.0001 #### [facility] [address] [place], [address] Mucus Ql (Urine sed) 0 SEEN Normal [facility] Comment on above: Order Comment: ROMY CTOR TO SPECIFY Performed By: #### L 400.0001 #### [facility] [address] [place], [address] RBC 0 SEEN Normal 0-5 [facility] Comment on above: Order Comment: ROMY CTOR TO SPECIFY Performed By: #### L 400.0001 #### [facility] [address] [place], [address] WBC 0 SEEN Normal 0-5 [facility] Comment on above: Order Comment: ROMY CTOR TO SPECIFY Performed By: #### L [id number] #### [facility] [address] [place], [address] Urine clarityOrdered By: Mamadou Barcenas on 12-07-2024 Clarity (U) Clear Clear [facility] Urine color determinationOrd ered By: Nayan Barcenas on 12-07-2024 Color (U) Straw Yellow [facility] Urine glucose detectionOrder ed By: Nayan Barcenas on 12-07-2024 Glucose Ql (U) Normal mg/dl Normal [facility] Urine leukocyte esterase det ection by dipstickOrdered By: Nayan Barcenas on 12-07-2024 Leukocyte esterase Test strip Ql (U) Negative Negative [facility] Urine pHOrdered By: Nayan reed on 12-07-2024 pH (U) 7.0 [pH] 5.0 - 8.0 [facility] Urine sediment bacteria coun t by microscopy (number/high power field)Ordered By: Nayan Barcenas on 12-07-2024 Bacteria LM.HPF (Urine sed) [#/Area] 0 /[HPF] None Seen [facility] Urine specific gravity measu rementOrdered By: Nayan Barcenas on 12-07-2024 Specific gravity (U) [Rel density] 1.010 1.002-1.030 [facility] Urine urobilinogen measureme ntOrdered By: Nayan Barcenas on 12-07-2024 Urobilinogen Ql (U) Normal mg/dl Normal [facility] White blood cell (WBC) count Ordered By: Nayan Barcenas on 12-07-2024 WBC (Bld) [#/Vol] 7.3 10*3/uL 4.4-11.0 [facility] White blood cell countOrdere d By: Nayan Barcenas on 12-07-2024 White blood cell count 0 SEEN /hpf 0-5 [facility] hCG Titer Quant., Serumon HCG QUANT. 2576 mIU/mL High <9 non-preg [facility] Comment on above: Result Comment: Gest ational Age 0.2-1 Week: 5-50 mIU/mL 1-2 Weeks: 50-500 mIU/mL 2-3 Weeks: 100-5000 mIU/mL 3-4 Weeks: 500-10,000 mIU/mL 4-5 Weeks:1000-50,000 mIU/mL 5-6 Weeks: 10,000-100,000 mIU/mL 6-8 Weeks: 15,000-200,000 mIU/mL 2-3 Months:10,000-100,000 mIU/mL Performed By: #### L 400.0001 #### [facility] [address] [place], [address] PAP I-G w/rfx hrHPV-Aptimaon 11-28-2024 ADEQ Comment Normal . [facility] Comment on above: Order Comment: Speci men Comment: [id number] Specimen Comment: No. of containers..01 ThinPrep Vial Result Comment: Sati sfactory for evaluation. No endocervical component is identified. Performed By: #### L 7400.0353 #### [facility] [address] [place], [place], [address] COMM . Normal . [facility] Comment on above: Order Comment: Speci men Comment: [id number] Specimen Comment: No. of containers..01 ThinPrep Vial Performed By: #### L 7400.0353 #### [facility] [address] [place], [place], [id number] COMMENT Comment Normal . [facility] Comment on above: Order Comment: Speci men Comment: [id number] Specimen Comment: No. of containers..01 ThinPrep Vial Result Comment: This liquid based ThinPrep(R) pap test was screened with the use of an image guided system. Performed By: #### L 7400.0353 #### [facility] [address] [place], [place], [id number] DIAG Comment Normal . [facility] Comment on above: Order Comment: Speci men Comment: [id number] Specimen Comment: No. of containers..01 ThinPrep Vial Result Comment: NEGA TIVE FOR INTRAEPITHELIAL LESION OR MALIGNANCY. Performed By: #### L 7400.0353 #### [facility] [address] [place], [place], [id number] HPV RFLX Comment Normal . [facility] Comment on above: Order Comment: Speci men Comment: [id number] Specimen Comment: No. of containers..01 ThinPrep Vial Result Comment: The HPV DNA reflex criteria were not met with this specimen result therefore, no HPV testing was performed. Performed at: - [address] [id number] Clinical Rehabilitation Liaison: Brissa Myers MD, Phone: [phone] Performed By: #### L 7400.0353 #### [facility] [address] [place], [place], [id number] PAPSMR Comment Normal . [facility] Comment on above: Order Comment: Speci men Comment: [id number] Specimen Comment: No. of containers..01 ThinPrep Vial Result Comment: The Pap smear is a screening test designed to aid in the detection of premalignant and malignant conditions of the uterine cervix. It is not a diagnostic procedure and should not be used as the sole means of detecting cervical cancer. Both false-positive and false-negative reports do occur. Performed By: #### L 7400.0353 #### [facility] [address] [place], [place], [address] PERFORM Comment Normal . [facility] Comment on above: Order Comment: Speci men Comment: [id number] Specimen Comment: No. of containers..01 ThinPrep Vial Result Comment: Rex Gonzales V[employer] Organizational Development (ASCP) Performed By: #### L 7400.0353 #### [facility] [address] [place], [place], [address] Cervical or vagninal specime n microscopic examination by cytology stain (reported asOrdered By: Helena Ruiz on 11-24-2024 Cytology report Cyto stain Doc (Cvx/Vag) Comment . [facility] Comment on above: The Pap smear is a s creening test designed to aid in thedetection of premalignant and malignant conditions of theuterine cervix. It is not a diagnostic procedure andshould not be used as the sole means of detecting cervicalcancer. Both false-positive and false-negative reports dooccur. Laboratory - CytologyOrdered By: Helena Ruiz on 11-24-2024 [employer]ational [employer] Cyto stain Nom (Cvx/Vag) [ID] Comment . [facility] Comment on above: Don Gonzales Cyto logist (ASCP) Laboratory - Miscellaneous t estsOrdered By: Helena Ruiz on 11-24-2024 Service comment (Unsp spec) [Interp] . . [facility] No Panel InformationOrdered By: Helena Ruiz on 11-24-2024 Pap Smear Specimen Adequacy Comment . [facility] Comment on above: Satisfactory for yeny luation. No endocervical component is identified. 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 Normal [facility] Basophil percentageon 2021 Bilirubin [Mass/Vol] 0.20 mg/dL 0.20-1.00 [facility] Work Phone: Comment on above: For patients on eltr ombopag therapy, use of Dimension [place] TBIL is not recommended. Chloride [Moles/Vol] 107 mmol/L 98-107 [facility] Work Phone: Cholesterol [Mass/Vol] 156 mg/dL <200 [facility] Work Phone: Comment on above: <200 mg/dL Desirable 200-240 mg/dL Borderline >240 mg/dL High Risk Glucose [Mass/Vol] 90 mg/dL 74-106 [facility] Work Phone: Potassium [Moles/Vol] 3.9 mmol/L 3.5-5.1 [facility] Work Phone: Protein [Mass/Vol] 7.7 g/dL 6.4-8.2 [facility] Work Phone: Sodium [Moles/Vol] 138 mmol/L 136-145 [facility] Work Phone: Triglyceride [Mass/Vol] 239 mg/dL <199 [facility] Work Phone: Comment on above: The drugs N-Acetylcy steine and Metamizole may falsely depress this assay.Serum Triglycerides Reference Interval Normal <150 mg/dL Borderline high 150 - 199 mg/dL High 200 - 499 mg/dL Very High > or = 500 mg/dL Laboratory - Chemistry and C hemistry - challengeon 09-11-2021 ALP [Catalytic activity/Vol] 52 U/L 45-117 [facility] Work Phone: ALT [Catalytic activity/Vol] 81 U/L 13-56 [facility] Work Phone: CO2 [Moles/Vol] 26.0 mmol/L 21.0-32.0 [facility] Work Phone: Globulin (S) [Mass/Vol] 3.9 g/dL 2.2-4.2 [facility] Work Phone: [phone] Urea nitrogen/Creatinine [Mass ratio] 16.8 mg/mg 10-20 [facility] Work Phone: No Panel Informationon 09-11 Estimated GFR (MDRD) Amer 92 mL/min >60 [facility] Work Phone: Comment on above: GFR Calc Estimated GFR (MDRD) Non-Af Amer 76 mL/min >60 [facility] Work Phone: Comment on above: Non- GFR Calc Serum or plasma albumin silver urement (mass/volume)on 09-11-2021 Albumin [Mass/Vol] 3.8 g/dL 3.2-5.0 [facility] Work Phone: Serum or plasma albumin/glob ulin mass ratioon 09-11-2021 Albumin/Globulin [Mass ratio] 1.0 {ratio} 0.9-2.4 [facility] Work Phone: Serum or plasma calcium silver urement (mass/volume)on 09-11-2021 Calcium [Mass/Vol] 8.6 mg/dL 8.5-10.1 [facility] Work Phone: Serum or plasma cholesterol in HDL measurement (mass/volume)on 09-11-2021 Cholesterol in HDL [Mass/Vol] 39 mg/dL >40 [facility] Work Phone: Comment on above: The drugs N-Acetylcy steine and Metamizole may falsely depress this assay. Reference Range HDL <40 mg/dL Low HDL Cholesterol HDL >or= 60 mg/dL High HDL Cholesterol Serum or plasma cholesterol in VLDL measurement (mass/volume)on 09-11-2021 Cholesterol in VLDL [Mass/Vol] 48 mg/dL 5-40 [facility] Work Phone: Serum or plasma creatinine m easurement (mass/volume)on 09-11-2021 Creatinine [Mass/Vol] 0.95 mg/dL 0.55-1.02 [facility] Work Phone: Comment on above: The validity of the calculated GFR & GFRAA in patients over 70 years has not been determined. Clinical correlation is essential. Serum or plasma low density lipoprotein (LDL) cholesterol measurement (mass/volume)on 09-11-2021 Cholesterol in LDL [Mass/Vol] 69 mg/dL 0-130 [facility] Work Phone: Serum or plasma urea nitroge n measurement (mass/volume)on 09-11-2021 Urea nitrogen [Mass/Vol] 16 mg/dL 7-18 [facility] Work Phone: Thin prep Papanicolaou smear with manual screeningon 09-11-2021 Thin prep Papanicolaou smear with manual screening 37 U/L 15-37 [facility] Work Phone: Thin prep Papanicolaou smear with manual screening 5 5-15 [facility] Work Phone: Whole blood hemoglobin A1c/t otal hemoglobin ratio (mass fraction)on 09-11-2021 HbA1c (Bld) [Mass fraction] 5.3 % 3.8-5.6 [facility] Work Phone: Comment on above: Normal < 5.7 % Predi abetic 5.7 - 6.4 % Diabetic >or= 6.5 % Please note range changes. Cervical or vagninal specime n microscopic examination by cytology stain (reported ason 07-16-2021 Cytology report Cyto stain Doc (Cvx/Vag) Comment . [facility] Work Phone: Comment on above: The [...] rRNA DANIA+probe Ql (Unsp spec) Negative Negative [facility] Work Phone: Laboratory - Cytologyon 06-26 Vp [employer]izational [employer] Cyto stain Nom (Cvx/Vag) [ID] Comment . [facility] Work Phone: Comment on above: Viviana Hernandez Cytote chnologist (ASCP) Laboratory - Microbiology an d Antimicrobial susceptibilityon 07-16-2021 N. gonorrhoeae DNA DANIA+probe Ql (Unsp spec) Negative Negative [facility] Work Phone: Comment on above: Performed at: =G - [facility] [address] [id number] Director: Brissa Myers MD, Phone: [phone] Laboratory - Miscellaneous t estson 07-16-2021 Service comment (Unsp spec) [Interp] Comment . [facility] Work Phone: Comment on above: This liquid based Th inPrep(R) pap test was screened withthe use of an image guided system. Service comment (Unsp spec) [Interp] . . [facility] Work Phone: No Panel Informationon 07-16 Human Papillomavirus Screen Comment . [facility] Work Phone: Comment on above: The HPV DNA reflex c riteria were not met with this specimenresult therefore, no HPV testing was performed.Performed at: - [facility] [id number] Director: Brissa Myers MD, Phone: [phone] Pathology report final diagnosis Narrative Comment . [facility] Work Phone: Comment on above: NEGATIVE FOR INTRAEP ITHELIAL LESION OR MALIGNANCY. Vital Signs Date Time Vital Sign Value Performing Clinician Kerry jay 01-04-2025 15:07-0400 Body height 165.[address] Myra Gayle DO Work Phone: [facility] 01-04-2025 15:05-0400 Body mass index (BMI) [Ratio] 32.8 kg/m2 Dr. Myra Gayle DO Work Phone: [facility] 01-04-2025 15:05-0400 Body weight 89.[address] Myra Gayle DO Work Phone: [facility] 01-04-2025 15:05-0400 Diastolic blood pressure 77 mm[Hg] Dr. Myra Gayle DO Work Phone: [facility] 01-04-2025 15:05-0400 Systolic blood pressure 125 mm[Hg] Dr. Myra Gayle DO Work Phone: [facility] 12-19-2024 16:35-0400 Body temperature 97.4 [degF] Dr. Mrya Gayle DO Work Phone: [facility] 12-19-2024 16:35-0400 Diastolic blood pressure 60 mm[Hg] Dr. Myra Gayle DO Work Phone: [facility] 12-19-2024 16:35-0400 Heart rate 73 /min Dr. Myra Gayle DO Work Phone: [facility] 12-19-2024 16:35-0400 Respiratory rate 16 /min Dr. Myra Gayle DO Work Phone: [facility] 12-19-2024 16:35-0400 SaO2% (BldA) [Mass fraction] 99 % Dr. Myra Gayle DO Work Phone: [facility] 12-19-2024 16:35-0400 Systolic blood pressure 100 mm[Hg] Dr. Myra Gayle DO Work Phone: [facility] 12-19-2024 14:40-0400 Body height 165.[address] Myra Gayle DO Work Phone: [facility] 12-19-2024 14:40-0400 Body mass index (BMI) [Ratio] 33 kg/m2 Dr. Myra Gayle DO Work Phone: [facility] 12-19-2024 14:40-0400 Body weight [address] Myra Gayle DO Work Phone: [facility] 12-15-2024 16:10-0400 Body height 165.[address] Myra Gayle DO Work Phone: [facility] 12-15-2024 16:10-0400 Body mass index (BMI) [Ratio] 32.8 kg/m2 Dr. Myra Gayle DO Work Phone: [facility] 12-15-2024 16:10-0400 Body weight 89.[address] Myra Gayle DO Work Phone: [facility] 12-15-2024 16:10-0400 Diastolic blood pressure 81 mm[Hg] Dr. Myra Gayle DO Work Phone: [facility] 12-15-2024 16:10-0400 Systolic blood pressure 117 mm[Hg] Dr. Myra Gayle DO Work Phone: [facility] 12-08-2024 12:59-0400 Body height 165.[address] Myra Gayle DO Work Phone: [facility] 12-08-2024 12:59-0400 Body mass index (BMI) [Ratio] 32.8 kg/m2 Dr. Myra Gayle DO Work Phone: [facility] 12-08-2024 12:59-0400 Body weight 89.[address] Myra Gayle DO Work Phone: [facility] 12-08-2024 12:59-0400 Diastolic blood pressure 83 mm[Hg] Dr. Myra Gayle DO Work Phone: [facility] 12-08-2024 12:59-0400 Systolic blood pressure 127 mm[Hg] Dr. Myra Gayle DO Work Phone: [facility] 12-07-2024 14:57-0400 Body temperature 97.9 [degF] Dr. Myra Gayle DO Work Phone: [facility] 12-07-2024 14:57-0400 Diastolic blood pressure 70 mm[Hg] Dr. Myra Gayle DO Work Phone: [facility] 12-07-2024 14:57-0400 Heart rate 74 /min Dr. Myra Gayle DO Work Phone: [facility] 12-07-2024 14:57-0400 Respiratory rate 15 /min Dr. Myra Gayle DO Work Phone: [facility] 12-07-2024 14:57-0400 SaO2% (BldA) [Mass fraction] 100 % Dr. Myra Gayle DO Work Phone: [facility] 12-07-2024 14:57-0400 Systolic blood pressure 117 mm[Hg] Dr. Myra Gayle DO Work Phone: [facility] 12-07-2024 10:58-0400 Body height 165.[address] Myra Gayle DO Work Phone: [facility] 12-07-2024 10:58-0400 Body mass index (BMI) [Ratio] 33.1 kg/m2 Dr. Myra Gayle DO Work Phone: [facility] 12-07-2024 10:58-0400 Body weight 90.[address] Myra Gayle DO Work Phone: [facility] 11-24-2024 08:01-0400 Body height 165.[address] Myra Gayle DO Work Phone: [facility] 11-24-2024 08:01-0400 Body mass index (BMI) [Ratio] 32.6 kg/m2 Dr. Myra Gayle DO Work Phone: [facility] 11-24-2024 08:01-0400 Body weight 89.[address] Myra Gayle DO Work Phone: [facility] 11-24-2024 08:01-0400 Diastolic blood pressure 73 mm[Hg] Dr. Myra Gayle DO Work Phone: [facility] 11-24-2024 08:01-0400 Systolic blood pressure 108 mm[Hg] Dr. Myra Malys DO Work Phone: [facility] 12-31-2021 16:51-0400 Body height 165.1 cm [facility] Work Phone: 12-31-2021 16:51-0400 Body weight 92.53 kg [facility] Work Phone: 11-26-2021 08:14-0400 Body weight 91.89 kg [facility] Work Phone: 11-07-2021 15:24-0400 Body height 165.1 cm [facility] Work Phone: 11-07-2021 15:24-0400 Body weight 91.62 kg [facility] Work Phone: 10-10-2021 07:59-0400 Body height 165.[address] Myra Gayle Work Phone: [facility] Work Phone: 10-10-2021 07:59-0400 Body weight 92.[address] Myra Gayle Work Phone: [facility] Work Phone: 09-11-2021 16:13-0400 Body height 165.[address] Myra Gayle Work Phone: [facility] Work Phone: 09-11-2021 16:13-0400 Body weight 94.[address] Myra Gayle Work Phone: [facility] Work Phone: 07-16-2021 10:13-0400 Body mass index (BMI) [Ratio] 34.2 kg/m2 Dr. Myra Gayle Work Phone: [facility] Work Phone: 07-16-2021 10:13-0400 Body weight 93.[address] Myra Gayle Work Phone: [facility] Work Phone: 07-16-2021 10:13-0400 Diastolic blood pressure 74 mm[Hg] Dr. Myra Gayle Work Phone: [facility] Work Phone: 07-16-2021 10:13-0400 Systolic blood pressure 106 mm[Hg] Dr. Myra Gayle Work Phone: [facility] Work Phone: 07-16-2021 10:13-0400 Body height 165.[address] Myra Gayle Work Phone: [facility] Work Phone: 07-16-2021 10:13-0400 Body mass index (BMI) [Ratio] 34.2 kg/m2 Dr. Myra Gayle Work Phone: [facility] Work Phone: 07-16-2021 10:13-0400 Body weight 93.[address] Myra Gayle Work Phone: [facility] Work Phone: 07-16-2021 10:13-0400 Diastolic blood pressure 74 mm[Hg] Dr. Myra Gayle Work Phone: [facility] Work Phone: 07-16-2021 10:13-0400 Systolic blood pressure 106 mm[Hg] Dr. Myra Gayle Work Phone: [facility] Work Phone: Encounters Encounter Date Encounter Type Care Provider Facility Start: 01-04-2025 End: 01-04-2025 Patient encounter procedure Margi DODGE -[facility] Work Phone: Start: 01-04-2025 End: 01-04-[address] Myra Gayle DO Work Phone: -[facility] Start: 01-04-2025 End: 01-04-2025 ambulatory Myra Gayle Facility:[facility] Start: 12-30-2024 Encounter for other preprocedural examination Joan Hall [facility] Start: 12-23-2024 ambulatory Myra Gayle Facility:[facility] Start: 12-19-2024 Non-patient / Non-visit Dr. Dano Hall MD -[facility] Start: 12-19-2024 End: 12-19-2024 Admission to same day surgery center Dr[facility] Joan Hall [facility] Start: 12-19-2024 End: 12-19-[address] Myra Gayle DO Work Phone: [facility] Start: 12-15-2024 End: 12-15-[address] Joan Hall MD -[facility] Work Phone: Start: 12-15-2024 End: 12-15-[address] Myra Gayle DO Work Phone: -[facility] Start: 12-09-2024 End: 12-09-[address] Myra Gayle DO Work Phone: -Laboratory Start: 12-09-2024 End: 12-09-[address] Joan Hall MD -Laboratory Work Phone: Start: 12-08-2024 End: 12-08-[address] Joan Hall MD -[facility] Work Phone: Start: 12-08-2024 End: 12-09-[address] Myra Gayle DO Work Phone: -[facility] Start: 12-07-2024 End: 12-07-2024 Emergency department patient visit Dr. Myra Gayle DO Work Phone: -Emergency Department Work Phone: Start: 11-24-2024 End: 11-24-[address] Myra Gayle DO Work Phone: -Laboratory Specimen Start: 11-24-2024 End: 11-24-2024 Patient encounter procedure Helena Ruiz [facility] -Laboratory Specimen Work Phone: Start: 11-24-2024 Encounter for gynecological examination (general) (routine) without abnormal findings Helena Ruiz [facility] Start: 11-24-2024 End: 11-24-2024 Patient encounter procedure Helena Ruiz [facility] Work Phone: Start: 11-24-2024 End: 11-24-2024 Patient encounter status Helena Ruiz [facility] Start: 11-24-2024 End: 11-24-[address] Myra Gayle DO Work Phone: -[facility] Start: 11-24-2024 End: 11-24-2024 ambulatory Helena Ruiz Facility:[facility] Start: 12-31-2021 End: 01-24-2022 ambulatory [facility] Work Phone: Start: 12-31-2021 End: 01-24-2022 Discharged Recurring [facility] Start: 11-26-2021 End: 12-25-2021 Discharged Recurring [facility] Start: 11-07-2021 End: 11-24-2021 Discharged Recurring [facility] Start: 10-10-2021 End: 10-24-[address] Myra Gayle Work Phone: [facility] Start: 09-11-2021 End: 09-24-[address] Myra Gayle Work Phone: [facility] Start: 09-11-2021 End: 09-11-[address] Myra Gayle Work Phone: [facility]atory Start: 07-16-2021 End: 07-16-[address] Myra Gayle Work Phone: [facility]Labor[facility], Specimen Start: 07-16-2021 End: 07-16-[address] Myra Gayle Work Phone: [facility] Procedures Date Procedure Procedure Detail Performing Clinician Start: 12-19-2024 Dilation and curetta ge of uterus Dr. Myra Gayle DO Work Phone: Start: 12-07-2024 Urnls dip stick/tabl et reagent auto microscopy Dr. Myra Gayle DO Work Phone: Start: 12-07-2024 Transvaginal obstetr ic ultrasonography Dr. Myra Gayle DO Work Phone: Start: 12-07-[address] Myra Gayle DO Work Phone: Start: 11-24-2024 Liquid based cervica l cytology screening Dr. Myra Gayle DO Work Phone: Comment on above: NEGATIVE FOR INTRAEP ITHELIAL LESION OR MALIGNANCY. This liquid based Th inPrep(R) pap test was screened withthe use of an image guided system. The HPV DNA reflex c riteria were not met with this specimenresult therefore, no HPV testing was performed.Performed at: [facility] [id number] Director: Brissa Myers MD, Phone: [phone] Plan of Treatment Date Care Activity Detail Author Start: 01-04-2025 Choriogonadotropin ( test) [Presence] in Serum or Plasma [facility] Start: 12-19-2024 Ambulation without limitation [facility] Start: 12-19-2024 Medical regimen orders management [facility] Start: 12-19-2024 Medication education [facility] Start: 12-19-2024 Patient discharge [facility] Start: 12-19-2024 Procedure discontinued [facility] Start: 12-19-2024 Taking patient vital signs [facility] Start: 12-19-2024 Vital signs measurements [facility] Start: 12-19-2024 [facility] Start: 12-19-2024 Anesthesia incomplete/missed ANES INCOMPL/MISSED AB PX [facility] Start: 12-19-2024 Tx missed first trimester surgical CARE OF MISCARRIAGE [facility] Start: 12-07-2024 [facility] Choriogonadotropin ( test) [Presence] in Serum or Plasma [facility] Liquid based cervica l cytology screening [facility] Patient Education Vaginal Bleedi ng During [facility] Work Phone: Payers Date Payer Category Payer Self-pay [id number] 2024 Unknown [id number] Unknown [facility] [employer] 5 [id number] Unknown [id number] Unknown [id number] Unknown [id number] Unknown [id number] Unknown [id number] Unknown [id number] Unknown [id number] [id number] Unknown [id number] [id number] Unknown [id number] [id number] Unknown [id number] [id number] Unknown [id number] [id number] Unknown [id number] [id number] Unknown [id number] Social History Date Type Detail Facility Start: 07-16-2021 Tobacco smoking stat us NHIS Unknown if ever smoked [facility] Work Phone: Start: 1995 Sex Assigned At Female W [facility] Start: 11-24-2024 End: 12-16-2024 Tobacco smoking status NHIS Never smoked tobacco (finding) [facility] Patient currentl y [facility] Goals Date Patient Goal Desired Activity /State Mental Status Date Assessment Result Facility 12-19-2024 Cognitive function Voice/Name [facility] Work Phone: 12-19-2024 Cognitive function Patient Orien tation Person;Place;Time [facility] Work Phone: Clinical Notes 07-16-2021 to 12-19-2024 Note Date & Type Note Facility 12-19-2024 Consult note [facility] 12-19-2024 Consult note Note Date/Time December 19, 2024 5:28pm [facility] Medical Records Department [address] [place] [address] Pre-Anesthesia Evaluation 12/19/24 1500 MR#: [id number] Acct: [id number] Name: KWAN WATKINS Rep #:[id number] : 1995 29 From: Brett Mattson MD PCP: Dr. Myra Gayle, DO Status:REG SDC Y Race: C Location: [place] [address] ASA Classification* ASA Classification ASA Classification: 2 Assessment & Plan Anesthesia* Anesthesia Assessment Anesthesia Assessment: Discussed sedation and/or anesthesia options, risks, benefits, and alternatives with patient/parents/legal guardian/POA. Questions invited. The patient/parents/legal guardian/POA seems to understand and agrees to proceedwith anesthesia plan. Reviewed the physical assessment, medical history, allergy history and patient home medications list prior to surgery/procedure/anesthetic and documented any changes. Performed airway and anesthesia risk assessments. Anesthesia Type Anesthesia Type: MAC History Source History Obtained from:: Patient and Chart Anesthesia Focused Assessment* Temperature: 98.4 F Pulse Rate: 79 Blood Pressure: 102/66 Respiratory Rate: 18 Pulse Ox: 100 Oxygen Delivery Method: Room Air Airway Assessment Mouth opens: 2 cm Mallampati Score: III Teeth Condition: Intact Neck Range of motion (ROM): Full ROM Labs Anesthesia Preop lab: CBC WBC 6.8 K/mm3 (4.4-11.0) 12/19/24 14:35 12/19/24 RBC 4.20 M/mm3 (4.2-5.4) 12/19/24 14:35 12/19/24 Hgb 12.7 g/dL (12.0-15.0) 12/19/24 14:35 12/19/24 Hct 36.8 % (37-47) L 12/19/24 14:35 12/19/24 Plt Count 211 K/mm3 (150-450) 12/19/24 14:35 12/19/24 CHEMISTRY Potassium 4.2 mmol/L (3.3-5.1) 12/07/24 11:23 12/07/24 Sodium 137 mmol/L (133-145) 12/07/24 11:23 12/07/24 BUN 11 mg/dL (4-19) 12/07/24 11:23 12/07/24 Creatinine 0.86 mg/dL (0.70-1.20) 12/07/24 11:23 12/07/24 Glucose 101 mg/dL (70-99) H 12/07/24 11:23 12/07/24 POC Glucose 89 mg/dL (70-110) 07/20/20 11:20 07/20/20 TSH 1.75 uIU/mL (0.358-3.74) 05/17/20 15:07 COAG HCG, Quant 2922 mIU/mL (<9 non-preg) H 12/09/24 08:50 Urine Test Negative Negative 07/20/20 09:25 07/20/20 Pre-Assessment Diagnosis/Proposed Procedure Planned Operative Procedure(s): SUCTION D & C Anesthesia History Anesthesia History - reservationist: Anesthesia History - reservationist Hx Hospitalization No 12/16/24 13:29 Any Problems With Anesthesia No 12/16/24 13:29 Cholinesterase deficiency No 12/16/24 13:29 You/Your Family Experience No 12/16/24 13:29 fever (hyperthermia) with Relationship Recent Exposure to Contagious No 12/19/24 14:40 Disease Does patient have nerve No 12/16/24 13:29 stimulator Patient instructed to have device shut off --Does patient have Pacemaker No 12/19/24 14:40 or ICD? When Was Last Pacemaker Check QUESTION #4 FULL TEXT: You/Your Family Experience fever (hyperthermia) with Anesthesia Last Oral Intake Last Oral intake: Last Oral Intake NPO since 10:00 12/19/24 14:40 Meds taken in AM with sips of No 12/19/24 14:40 water? Meds patient instructed to take am of surgery PONV PONV - reservationist: PONV - reservationist Female Yes 12/16/24 13:29 HX of Motion Sickness Yes 12/16/24 13:29 HX of N/V After Surgery No 12/16/24 13:29 Non-Smoker Yes 12/16/24 13:29 Duration of Surgery greater No 12/16/24 13:29 than 60 minutes Number of Risk Factors 3 12/16/24 13:29 PONV Score Moderate Risk 12/16/24 13:29 Height & Weight Height & Weight: Anesthesia: Height & Weight Height 5 ft 5 in 12/19/24 14:40 Weight: 90 kg 12/19/24 14:40 Body Mass Index (BMI) 33.0 12/19/24 14:40 Respiratory Assessment Respiratory Assessment - reservationist: Respiratory Tract Infection Hx - reservationist Hx Respiratory Tract Infection No 12/16/24 13:29 STOP Sleep Apnea STOP Sleep Apnea - reservationist: STOP Sleep Apnea - reservationist Hx Hypertension No 12/16/24 13:29 Hx Sleep Apnea No 12/16/24 13:29 CPAP BIPAP Do you snore loudly (louder No 12/16/24 13:29 than talking or can be heard Do you often feel tired/ No 12/16/24 13:29 fatigued/ sleepy during daytime? Has anyone observed you stop No 12/16/24 13:29 breathing during sleep? STOP Results Negative 12/16/24 13:29 QUESTION #5 FULL TEXT : Do you snore loudly (louder than talking or can be heard through closed doors)? Tobacco Use History Tobacco Use History - reservationist: Tobacco Use History - reservationist Tobacco Use Smoking Status Never smoker 12/16/24 13:29 Hx Tobacco Use No 12/16/24 13:29 Years Smoking Packs Smoked per Day Smoking Cessation Date was within the last 15 years Hx Smoking Cessation Date Hx Smoking Cessation Counseling Hematologic Medial History Hematologic Hx - reservationist: Hematologic Medical Hx - rivet catcher Hx of Blood Transfusion No 12/16/24 13:29 Hx of Transfusion in last 3 No 12/16/24 13:29 Months Date of Last Transfusion (if within last 3 months) Ever experience any problems No 12/16/24 13:29 with transfusion(s)? Specify any problems Hx of Preganancy in last 3 No 12/16/24 13:29 Months Nurse Filling Out Transfusion [facility]LEHWH[facility] 12/16/24 13:29 & Questions: Date: 12/16/24 12/16/24 13:29 Time: 13:33 12/16/24 13:29 Patient unable to answer at this time (ie. confused, unrespo /Reproduction History /Reproductive History - reservationist: /Reproductive Hx- reservationist Hx Now No 12/16/24 13:29 Gestational Age (in weeks): EDC: Hx Hx Para Hx Section SAB No 12/16/24 13:29 Active Medications Active Medications: Current Medications Generic Name Dose Route Start Last Admin Trade Name Freq PRN Reason Stop Dose Admin Doxycycline Monohydrate 100 mg 12/19/24 15:30 12/19/24 14:45 Doxycycline 100 Mg Capsule PO 12/19/24 15:31 100 mg PREOP ONE Administration Lactated Ringer's 1,000 mls @ 15 mls/hr 12/19/24 14:15 12/19/24 14:45 IV 15 mls/hr .Q48H ANTONIA Administration Lactated Ringer's 1,000 mls @ 15 mls/hr 12/19/24 14:15 12/19/24 14:15 IV Not Given .Q48H ANTONIA PFSH Medical History Anxiety History of PCOS Fatigue Home Medications ?Medication ?Instructions ?Recorded ?Last Taken ?Type NK 11/24/24 Unknown History Allergy/AdvReac Type Severity Reaction Status Date / Time No Known Allergies Allergy Verified 12/19/24 14:40 Family History Grandfather Diabetes Heart disease Myocardial infarction Alzheimer's dementia Surgical History History of tonsillectomy Social History household members: spouse current occupational status: employed current occupation: [employer] Smoking Status: Never smoker alcohol intake: never substance use type: does not use what type of physical activity do you participate in: running and weight training frequency: 1-2 times per week seatbelt use: always do you feel safe at home: Yes additional social history: : Slick Review of Systems (Anesthesia) ROS Narrative System reviewed and no additional complaints, except as documented. 12/19/24 1500 <Electronically signed by Brett Sandoval> Date _ Brett Mattson MD Cosigner Signature: Date CC: ~ Signed [facility] Work Phone: 1(392) 709-382508-25-2025 History and physical note Author Joan Hall [facility] Note Date/Time December 19, 2024 3: 31pm [facility] Medical Records Department [address] [place] [address] H&P Exam - FREIGHT SEPARATOR 12/19/24 1456 MR#: [id number] Acct: [id number] Name: KWAN WATKINS Rep #:[id number] : 1995 29 From: Joan rose MD PCP: Dr. Myra Gayle, DO Status:[facility] Location: [place] [address] HPI - General HPI Narrative KWAN WATKINS, is a 29 F who presents for early miscarriage. she has had intermittent vaginal bleeding and some cramping. US has showed 5weeks 6days with 3mm CRL with no FHT present. repeat ultrasound today confirms- 2.5mm fetalpole no FHT GS still measuring 5w6d with large subchorionic hematoma present PFSH PFS Medical History Anxiety History of PCOS Fatigue Home Medications ?Medication ?Instructions ?Recorded ?Last Taken ?Type NK 11/24/24 Unknown History Allergy/AdvReac Type Severity Reaction Status Date / Time No Known Allergies Allergy Verified 12/19/24 14:40 Family History Grandfather Diabetes Heart disease Myocardial infarction Alzheimer's dementia Surgical History History of tonsillectomy Social History household members: spouse current occupational status: employed current occupation: [employer] Smoking Status: Never smoker alcohol intake: never substance use type: does not use what type of physical activity do you participate in: running and weight training frequency: 1-2 times per week seatbelt use: always do you feel safe at home: Yes additional social history: : Slick History 1 Elective abortions Hx Para 0 Spontaneous abortions Hx # Term Pregnancies Ectopic pregnancies Hx # Pregnancies Multiple births # of living children ROS Constitutional Constitutional: Reports systems reviewed and no addt'l complaints, except as documented; Denies as per HPI, change in weight, fatigue, fever(s), malaise, weakness or other Eyes Eyes: Reports systems reviewed and no addt'l complaints, except as documented; Denies as per HPI, change in vision or other ENT HEENT: Reports systems reviewed and no addt'l complaints, except as documented Respiratory/Chest Respiratory/Chest: Reports systems reviewed and no addt'l complaints, except as documented Gastrointestinal Gastrointestinal: Reports systems reviewed and no addt'l complaints, except as documented and as per HPI Genitourinary Genitourinary: Reports as per HPI Musculoskeletal Musculoskeletal: Reports systems reviewed and no addt'l complaints, except as documented Neurologic Neurologic: Reports systems reviewed and no addt'l complaints, except as documented Psychiatric Psychiatric: Reports systems reviewed and no addt'l complaints, except as documented Endocrine Endocrinology: Reports systems reviewed and no addt'l complaints, except as documented Hematologic/Lymphatic Hematologic/Lymphatic: Reports systems reviewed and no addt'l complaints, exceptas documented Vital Signs Vital Signs Vital Signs: 12/19/24 14:40 12/19/24 14:40 Temperature 98.4 F Temperature Source Temporal Pulse Rate 79 Respiratory Rate 18 Respiratory Pattern Normal Blood Pressure 102/66 Blood Pressure Mean 78 Blood Pressure Source Monitor Blood Pressure Position Semi-Fowlers Blood Pressure Location Left Arm Pulse Ox 100 Oxygen Delivery Method Room Air Weight Weight: 198 lb 6.656 oz Body Mass Index (BMI) 33.0 Physical Exam Const alert, oriented x3 and no apparent distress HEENT normocephalic Head and Scalp: atraumatic Eyes EOMs intact bilaterally and conjunctivae normal Neck full ROM, no lymphadenopathy, supple and thyroid normal General: trachea midline Lymph Lymphatic: no lymphadenopathy noted Resp normal respiratory effort, no retractions, no use of accessory muscles and clearto auscultation bilaterally Cardio regular rhythm GI normal to inspection, nondistended, normoactive bowel sounds, soft to palpation,non-distended and no masses Inspection: Negative for abdominal distention Back/Spine no CVA tenderness Extremity normal to inspection Skin no rashes or lesions noted Neuro moves all extremities and deep tendon reflexes 2+ bilaterally Psych mental status grossly normal Labs Labs Labs: Blood Type A POSITIVE Antibody Screen Pending Hct 36.8 % (37-47) L Hgb 12.7 g/dL (12.0-15.0) Obstetrics Ultrasound Chlamydia DNA (DANIA) Negative (Negative) N.gonorrhoeae DNA (DANIA) Negative (Negative) Assessment & Plan (1) Missed : COMMENT: plan suction d and c thursday- repeat one more ultrasoundfor additional confirmation thursday PLAN: Plan After discussing the patient's diagnosis and treatment plan options, patient wishes to proceed with surgical management. I have discussed with the patient the risks, benefits, and alternatives of the procedure which include but are notlimited to risks of anesthesia, bleeding, infection, possible damage to bowel, bladder, or surrounding vasculature which could lead to additional surgery to evaluate any complications. Patient agrees to procedure and wishes to proceed. ACOG/uptodate references given for additional information regarding procedure. 12/19/24 9194 <Electronically signed by Joan Hall MD> Cosigner Signature (if applicable): CC: Dr. Myra Gayle DO; Dr. Joan Hall MD~ Signed [facility] Work Phone: 1(818) 984-433008-25-2025 Consult note [facility] Medical Records Department [address] [facility] [place] [address] Anesthesia Postop Eval I 12/19/24 1621 MR#: [id number] Acct: [id number] Name: KWAN WATKINS Rep #:[id number] : 1995 29 From: Antonia bethea DATA OPERATIONS DIRECTOR PCP: Dr. Myra Gayle, DO Status:REG SDC Y Race: C Location: [place] [address] Anesthesia: Postop Eval I Current Vital Signs Temperature: 97.3 F Pulse Rate: 86 Blood Pressure: 109/61 Respiratory Rate: 16 Pulse Ox: 100 Assessment Airway patent: Yes Spontaneous unlabored respirations: Yes Mental status: Awake and Calm nausea: No Vomiting: No Anesthesia Complication: No Fluid Hydration Crystalloid volume administer (ml): 900 Total IV fluid infused: 900 Progress Note Anesthesia document: Postop Eval 1 completed: Yes 12/19/241621 ludin DATA OPERATIONS DIRECTOR> Date _ Antonia Soriano CRNA Cosigner Signature: Date CC: ~ Signed [facility]08-25-2025 Discharge summary [facility] Medical Records Department [address] [place] [address] Instructions for Home/Discharge Instructions 12/19/24 1542 MR#: [id number] Acct: [id number] Name: KWAN WATKINS Rep #:[id number] : 1995 29 From: Joan rose MD PCP: Dr. Myra Gayle, DO Status:REG SDC Discharge Instructions DC O2, CPAP, BIPAP needs Home O2 Discharge instructions: No Dressing / Incision Discharge Activity: Return to Normal Activity, May Shower and May Take a Tub Bath (after 1 week) May resume sexual activity in: 1-2 weeks Weight Bearing Status: Weight bearing as tolerated Lifting Restrictions: none Dressing / Incision Call your doctor if you observe: Fever of 101 or Higher, Using more than 1 pad per hour, Shortness of breath and Uncontrolled pain Follow Up Care Please Follow Up With: Joan Hall MD When: Call [phone] to schedule appointment. Test Results: Test results from this visit will be discussed in further detail at your follow- up appointment, if applicable. Discharge Plan Admission Attending Provider: Joan Hall Primary Care Provider: Myra Gayle Instructions Print Language: Hong Konger Discharge Orders/Prescriptions Prescriptions: No Action NK Referrals / Follow Up: Myra Gayle DO [Primary Care Provider] - Disposition Disposition (needs filled in before D/C Order can be placed): Home, Self Care 12/19/24 1607Joan Hall MD CC: Dr. Myra Gayle DO ~ Signed [facility]08-25-2025 Procedure note [facility] Medical Records Department [address] [place] [address] Operative Report 12/19/24 1540 MR#: [id number] Acct: [id number] Name: KWAN WATKINS Rep #:[id number] : 1995 29 From: Joan rose MD PCP: Dr. Myra Gayle DO Status:[facility] Location: [place] [address] Problems Associated Problem List Diagnoses (1) Missed : Procedures Urinary/Genital 52xxx-59xxx: 88746 Surg Trtmt missed Ab, 1TM Operative Report (Standard) Operative Information Date of Procedure: 12/19/24 Pre-Operative Diagnosis: see problem list comments Post-Operative Diagnosis: same Surgery/Procedure Performed: suction dilation and curettage heel seat fitter: No Type of Anesthesia: IV Sedation and Local RN Documented Start/Stop Times: Operation Date: 12/19/24 15:30 Case Time Into Pre-Op 12/19/24 14:13 Out of Pre-Op 12/19/24 15:32 Anesthesia Start 12/19/24 15:33 Into Room 12/19/24 15:33 Procedure Start 12/19/24 15:53 Procedure Start Time: 15:53 Procedure Stop Time: 16:07 Select all DRAINS/GRAFTS/IMPLANTS that apply: None Estimated Blood Loss: 50 Specimen collected: Yes Description of specimen(s) removed: retained POC Description of surgery: Patient was taken to the operating room and placed under MAC local anesthesia. She was prepped and draped in the normal sterile fashion the dorsal lithotomy position. Bladder was drained of clear urine and anterior lip of the cervix wasgrasped and the uterus sounded to 9 cm. Cervix was progressively dilated to allow passage of a [] suction curette. Progressive passes were made removing the retained products of conception without complication. Sharp curettage confirmed complete removal of the retained products. All instruments were removed from the vagina and excellent hemostasis was noted andthe patient was taken to recovery in stable condition. Surgical Findings: 6 week missed ab Complications Complications: No 12/19/24 1607 Cosigner Signature (if applicable): CC: Dr. Myra Gayle DO; Dr. Joan Hall MD~ Signed [facility]08-25-2025 History and physical note [facility] Medical Records Department [address] [place] [address] H&P Exam - FREIGHT SEPARATOR 12/19/24 1456 MR#: [id number] Acct: [id number] Name: KWAN WATKINS Rep #:[id number] : 1995 29 From: Joan rose MD PCP: Dr. Myra Gayle DO Status:[facility] Location: [place] [address] HPI - General HPI Narrative KWAN WATKINS, is a 29 F who presents for early miscarriage. she has had intermittent vaginal bleeding and some cramping. US has showed 5weeks 6days with 3mm CRL with no FHT present. repeat ultrasoundtoday confirms- 2.5mm fetalpole no FHT GS still measuring 5w6d with large subchorionic hematoma present PFSH PFSH Medical History Anxiety History of PCOS Fatigue Home Medications ?Medication ?Instructions ?Recorded ?Last Taken ?Type NK 11/24/24 Unknown History Allergy/AdvReac Type Severity Reaction Status Date / Time No Known Allergies Allergy Verified 12/19/24 14:40 Family History Grandfather Diabetes Heart disease Myocardial infarction Alzheimer's dementia Surgical History History of tonsillectomy Social History household members: spouse current occupational status: employed current occupation: [employer] Smoking Status: Never smoker alcohol intake: never substance use type: does not use what type of physical activity do you participate in: running and weight training frequency: 1-2 times per week seatbelt use: always do you feel safe at home: Yes additional social history: : Slick History 1 Elective abortions Hx Para 0 Spontaneous abortions Hx # Term Pregnancies Ectopic pregnancies Hx # Pregnancies Multiple births # of living children ROS Constitutional Constitutional: Reports systems reviewed and no addt'l complaints, except as documented; Denies as per HPI, change in weight, fatigue, fever(s), malaise, weakness or other Eyes Eyes: Reports systems reviewed and no addt'l complaints, except as documented; Denies as per HPI, change in vision or other ENT HEENT: Reports systems reviewed and no addt'l complaints, except as documented Respiratory/Chest Respiratory/Chest: Reports systems reviewed and no addt'l complaints, except as documented Gastrointestinal Gastrointestinal: Reports systems reviewed and no addt'l complaints, except as documented and as per HPI Genitourinary Genitourinary: Reports as per HPI Musculoskeletal Musculoskeletal: Reports systems reviewed and no addt'l complaints, except as documented Neurologic Neurologic: Reports systems reviewed and no addt'l complaints, except as documented Psychiatric Psychiatric: Reports systems reviewed and no addt'l complaints, except as documented Endocrine Endocrinology: Reports systems reviewed and no addt'l complaints, except as documented Hematologic/Lymphatic Hematologic/Lymphatic: Reports systems reviewed and no addt'l complaints, exceptas documented Vital Signs Vital Signs Vital Signs: 12/19/24 14:40 12/19/24 14:40 Temperature 98.4 F Temperature Source Temporal Pulse Rate 79 Respiratory Rate 18 Respiratory Pattern Normal Blood Pressure 102/66 Blood Pressure Mean 78 Blood Pressure Source Monitor Blood Pressure Position Semi-Fowlers Blood Pressure Location Left Arm Pulse Ox 100 Oxygen Delivery Method Room Air Weight Weight: 198 lb 6.656 oz Body Mass Index (BMI) 33.0 Physical Exam Const alert, oriented x3 and no apparent distress HEENT normocephalic Head and Scalp: atraumatic Eyes EOMs intact bilaterally and conjunctivae normal Neck full ROM, no lymphadenopathy, supple and thyroid normal General: trachea midline Lymph Lymphatic: no lymphadenopathy noted Resp normal respiratory effort, no retractions, no use of accessory muscles and clearto auscultation bilaterally Cardio regular rhythm GI normal to inspection, nondistended, normoactive bowel sounds, soft to palpation,non-distended and no masses Inspection: Negative for abdominal distention Back/Spine no CVA tenderness Extremity normal to inspection Skin no rashes or lesions noted Neuro moves all extremities and deep tendon reflexes 2+ bilaterally Psych mental status grossly normal Labs Labs Labs: Blood Type A POSITIVE Antibody Screen Pending Hct 36.8 % (37-47) L Hgb 12.7 g/dL (12.0-15.0) Obstetrics Ultrasound Chlamydia DNA (DANIA) Negative (Negative) N.gonorrhoeae DNA (DANIA) Negative (Negative) Assessment & Plan (1) Missed : COMMENT: plan suction d and c thursday- repeat one more ultrasoundfor additional confirmation thursday PLAN: Plan After discussing the patient's diagnosis and treatment plan options, patient wishes to proceed withsurgical management. I have discussed with the patient the risks, benefits, and alternatives of theprocedure which include but are notlimited to risks of anesthesia, bleeding, infection, possible damage to bowel, bladder, or surrounding vasculature which could lead to additional surgery to evaluate any complications. Patient agrees to procedure and wishes to proceed. ACOG/uptodate references given for additional information regarding procedure. 12/19/24 1531 Cosigner Signature (if applicable): CC: Dr. Myra Gayle DO; Dr. Joan Hall MD~ Signed [facility]08-13-2025 Discharge summary [facility] Medical Records Department [address] [place] [address] Emergency Department Summary 12/07/24 MR#: [id number] Acct: [id number] Name: KWAN WATKINS Rep #:[id number] : 1995 29 From: Nayan Santo PCP: Dr. Myra Gayle DO Status:REG ER Location: ED HPI HPI [...] spouse current occupational status: employed current occupation: [employer] Smoking Status: Never smoker alcohol intake: never [...] reviewed, Vital signs reviewed Constitutional: please see mdm HENT: MMM Eyes: Pupils equal round and [...] nerves II through XII intact,5/5 strength in allpresent extremities. Intact sensation to light touch in all present extremities, 2+ reflexes bilateral patella tendons. Skin: No rash or lesions noted MEDICAL DECISION MAKING: Chief Complaint: please see HPI External records reviewed: Reviewed prior imaging studies: No recent advanced ultrasound of the abdomen noted. Factors affecting care: As per HPI Social determinants of health: none History obtained from others: none Consults: none MDM Narrative: The patient was initially hemodynamically stable, afebrile and nontoxic- appearing. Abdominal exam benign. I considered the following [...] repeat hCG in 2 days. Encourage outpatient FREIGHT SEPARATOR follow-up. Gave strict return precautions. The patient [...] secondary to the patient having high probability ofclinically significant/life threatening deterioration in the patient's condition which required my urgent intervention. Impression: 1. First trimester 2. Threatened miscarriage Dispo: Discharge home This note was generated with [employer] dictation software. It may contain incorrectwords, spelling, [...] % (Auto) 55.7 Lymph % (Auto) 28.9 [place] % (Auto) 8.5 Eos % (Auto) 5.4 [...] Clarity Clear Urine pH 7.0 Ur Specific [place] 1.010 Urine Protein Negative Urine Glucose (UA) [...] at this time. Follow-up recommended. Reading Location: [id number] Discharge Plan Triage Chief Complaint: Vag Bld, Preg ED Provider: Narinder,Nayan Dx/Rx/DC Orders Clinical Impression: Spotting affecting Instructions: Vaginal Bleeding During Prescriptions: No Action NK Other Ambulatory Orders: hCG Titer Quant., Serum (Routine) Timeframe: 2 Days Facility: [facility] - Location: Laboratory Ordered By: Dr. [...] severe abdominal pain Please follow-up at the [facility] outpatient lab for repeat hormone testing in 2 days. Thisis 12/09/2024. Please follow with your primary care physician for further outpatient evaluationand management. Print Language: Hong Konger Disposition Disposition: Home, Self Care What to do if you have Problems For any increased pain, shortness of breath, bleeding, nausea or vomiting, chestpain, or any unexpected problems, contact your Primary Care Provider. Call [facility] ([phone]) or report tothe closest Emergency Room. Call 911 if necessary. 12/07/24 1451 Cosigner Signature (if applicable): CC: Dr. Myra Gayle, DO ~ Signed [facility]08-13-2025 Discharge summary Author Nayan Barcenas [facility] Note Date/Time December 07, 2024 2: 51pm [facility] Medical Records Department [address] [place] [address] Emergency Department Summary 12/07/24 MR#: [id number] Acct: [id number] Name: KWAN WATKINS Rep #:[id number] : 1995 29 From: Nayan Santo PCP: Dr. Myra Gayle DO Status:REG ER Location: ED HPI HPI [...] spouse current occupational status: employed current occupation: [employer] Smoking Status: Never smoker alcohol intake: never [...] reviewed, Vital signs reviewed Constitutional: please see mdm HENT: MMM Eyes: Pupils equal round and [...] History obtained from others: none Consults: none [facility] Narrative: The patient was initially hemodynamically stable, afebrile and nontoxic- appearing. Abdominal exam benign. I considered the following [...] repeat hCG in 2 days. Encourage outpatient FREIGHT SEPARATOR follow-up. Gave strict return precautions. The patient [...] Discharge home This note was generated with [employer] dictation software. It may contain incorrectwords, spelling, [...] % (Auto) 55.7 Lymph % (Auto) 28.9 [place] % (Auto) 8.5 Eos % (Auto) 5.4 [...] Clarity Clear Urine pH 7.0 Ur Specific [place] 1.010 Urine Protein Negative Urine Glucose (UA) [...] at this time. Follow-up recommended. Reading Location: [id number] Discharge Plan Triage Chief Complaint: Vag Bld, Preg ED Provider: Nayan Barcenas Dx/Rx/DC Orders Clinical Impression: Spotting affecting Instructions: Vaginal Bleeding During Prescriptions: No Action NK Other Ambulatory Orders: hCG Titer Quant., Serum (Routine) Timeframe: 2 Days Facility: [facility] - Location: Laboratory Ordered By: Dr. [...] severe abdominal pain Please follow-up at the [facility] lab for repeat hormone testing in 2 days. This is 12/09/2024. Please follow with your primary care physician for further outpatient evaluationand management. Print Language: Hong Konger Disposition Disposition: Home, Self Care What to do if you have Problems For any increased pain, shortness of breath, bleeding, nausea or vomiting, chestpain, or any unexpected problems, contact your Primary Care Provider. Call [facility] ([phone]) or report to the closest Emergency Room. Call 911 if necessary. 12/07/24 1451 <Electronically signed by Nayan Barcenas DO> Cosigner Signature (if applicable): CC: Dr. Myra Gayle DO ~ Signed [facility] Work Phone: 1(417) 791-289708-13-2025 Radiology Diagnostic study note [facility] Imaging Services [address] [place], [place] [address] Transvaginal w/Preg US MR#: [id number] Acct: [id number] Name: KWAN WATKINS Rep #: [id number] : 1995 F 29 From: Gerardo Eddy MD PCP: Dr. Myra Gayle DO Status: REG ER Study:Transvaginal w/Preg US Date of Exam: 12/07/24 Exam# [id number] Ordering Dr: Karen Barcenas DO PROCEDURE: TRANSVAGINAL [...] and unremarkable. DIMENSIONS: Parameter Measurement / EGA Mikes Rump Length: 8.3 mm/6 weeks and 6 [...] at this time. Follow-up recommended. Reading Location: [facility] CC: Dr. Myra Gayle DO; Dr. Nayan Barcenas DO ~ Cae Engineer: Signed [facility]07-31-2025 Evaluation note* Diagnosis Onset Date Resolution Status Admit Date Encounter for routine gynecological examination noneactive October 272024 7:57am [facility] Work Phone: 1(574) 112-545107-31-2025 Evaluation note* Diagnosis Onset Date Resolution Status Admit Date Encounter for routine gynecological examination noneactive October 272024 7:57am Threatened acute Augus t 2024 12:34pm [facility] Work Phone: 1(236) 234-601807-31-2025 Evaluation note* Diagnosis Onset Date Resolution Status Admit Date Encounter for routine gynecological examination noneactive October 272024 7:57am Threatened resolved Augus t 2024 12:34pm Missed acute December 152024 3:54pm Missed acute December 192024 2:09pm [facility] Work Phone: 1([phone]) 992-211307-31-2025 Evaluation note* Diagnosis Onset Date Resolution Status Admit Date Encounter for routine gynecological examination noneactive October 272024 7:57am Threatened resolved Augus t 2024 12:34pm Missed acute December 152024 3:54pm Missed acute December 192024 2:09pm Missed acute January 04, 2025 3:01pm Postop check noneactive January 042024 3:01pm [facility] Work Phone: 1(492) 818-103707-31-2025 [facility] [address] [place] [address], [address] [place] [address] OFFICE VISIT Date of Service: 11/24/24 MR#: [id number] Acct: [id number] Name: KWAN WATKINS Rep #: [id number] : 1995 Provider: MAGDI Ruiz Age/Sex: 29/F [place] [facility] Status: Signed Intake Vital Signs 11/12/23 13:07 11/24/24 08:01 Height 5 ft 5 in 5 ft 5 in Weight: 196 lb 4 oz BMI 32.6 BP 108/73 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 11/24/24 0831 mateusz [place]> Date _ Helena Ruiz CNM Cosigner Signature: Date (if applicable) CC: ~ [facility]03-22-2022 NotePap Smear Specimen AdequacyMarch 2021 2:32pmCommentSatisfactory for evaluation. Endocervical and/or squamous metaplasticcells (endocervical component)are present.[facility] INTER[facility]ACED A#[id number] [facility] Work Phone: Comment on above:Satisfactory for evaluation. Endocervical and/or squamous metaplasticcells (endocervical component)are present.07-16-2021 NotePap Smear Specimen AdequacyMarch 2021 2:32pmComment Satisfactory for evaluation. Endocervical and/or squamous metaplasticcells (endocervical component)are present.[facility] INTER[facility]ED A#[id number] Medical [facility]health [facility] Work Phone: Comment on above:Satisfactory for evaluation. Endocervical and/or squamous metaplasticcells (endocervical component)are present.07-16-2021 NotePap Smear Specimen AdequacyMarch 2021 2:32pmComment .Satisfactory for evaluation. Endocervical and/or squamous metaplasticcells (endocervical component)are present.[facility] A#[id number] Medical [facility]health [facility] Work Phone: Comment on above:Satisfactory for evaluation. Endocervical and/or squamous metaplasticcells (endocervical component)are present.Consult note Author Antonia Soriano [facility] Note Date/Time December 19, 2024 4: 22pm [facility] Medical Records Department [address] [place] [address] Anesthesia Postop Eval I 12/19/24 1621 MR#: [id number] Acct: [id number] Name: KWAN WATKINS Rep #:[id number] : 1995 29 From: Antonia bethea CRNA PCP: Dr. Myra Gayle, DO Status:REG SDC Y Race: C Location: [place] [address] Anesthesia: Postop Eval I Current Vital Signs Temperature: 97.3 F Pulse Rate: 86 Blood Pressure: 109/61 Respiratory Rate: 16 Pulse Ox: 100 Assessment Airway patent: Yes Spontaneous unlabored respirations: Yes Mental status: Awake and Calm nausea: No Vomiting: No Anesthesia Complication: No Fluid Hydration Crystalloid volume administer (ml): 900 Total IV fluid infused: 900 Progress Note Anesthesia document: Postop Eval 1 completed: Yes 12/19/24 1622 <Electronically signed by Antonia noland CRNA> Date _ Antonia Soriano CRNA Cosigner Signature: Date CC: ~ Signed [facility] Work Phone: Discharge summary Author Joan Hall [facility] Note Date/Time December 19, 2024 4: 07pm [facility] Medical Records Department [address] [place] [address] Instructions for Home/Discharge Instructions 12/19/24 1542 MR#: [id number] Acct: [id number] Name: KWAN WATKINS Rep #:[id number] : 1995 29 From: Joan rose MD PCP: Dr. Myra Gayle DO Status:REG SDC Discharge Instructions DC O2, CPAP, BIPAP needs Home O2 Discharge instructions: No Dressing / Incision Discharge Activity: Return to Normal Activity, May Shower and May Take a Tub Bath (after 1 week) May resume sexual activity in: 1-2 weeks Weight Bearing Status: Weight bearing as tolerated Lifting Restrictions: none Dressing / Incision Call your doctor if you observe: Fever of 101 or Higher, Using more than 1 pad per hour, Shortness of breath and Uncontrolled pain Follow Up Care Please Follow Up With: Joan Hall MD When: Call [phone] to schedule appointment. Test Results: Test results from this visit will be discussed in further detail at your follow- up appointment, if applicable. Discharge Plan Admission Attending Provider: Joan Hall Primary Care Provider: Myra Gayle Instructions Print Language: Hong Konger Discharge Orders/Prescriptions Prescriptions: No Action NK Referrals / Follow Up: Myra Gayle DO [Primary Care Provider] - Disposition Disposition (needs filled in before D/C Order can be placed): Home, Self Care 12/19/24 1607<Electronically signed by Joan Hall MD>Joan Hall MD CC: Dr. Myra Gayle, DO ~ Signed [facility] Work Phone: [email or web address] note* Diagnosis Onset Date Resolution Status Irregular menstruation, unspecified acute [facility] Work Phone: Evaluation note* Diagnosis Onset Date Resolution Status Irregular menstruation, unspecified acute Encounter for routine gynecological examination noneactive [facility] Work Phone: Evaluation noteNo assessment information available [facility] Work Phone: [email or web address] note* Diagnosis Onset Date Resolution Status Admit Date Encounter for routine gynecological examination noneactive October 272024 7:57am [facility] Work Phone: Hospital Discharge instructionsAdditional Instructions [...] severe abdominal pain Please follow-up at the [facility] outpatient lab for repeat hormone testing in 2 days. This is 12/09/2024. Please follow with your primary care physician for further outpatient evaluation and management.[facility] Work Phone: Progress note Author Helena Ruiz [facility] Services Note Date/Time November 24, 2024 8:31 am [facility] [place] [facility] [address] [place] [address], [address] [place] [address] OFFICE VISIT Date of Service: 11/24/24 MR#: [id number] Acct: [id number] Name: KWAN WATKINS Rep #: [id number] : 1995 Provider: MAGDI Ruiz Age/Sex: 29/F [place] [facility] Status: Signed Intake Vital Signs 11/12/23 13:07 11/24/24 08:01 Height 5 ft 5 in 5 ft 5 in Weight: 196 lb 4 oz BMI 32.6 BP 108/73 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 Required: No Is patient in pain?: No [...] spouse current occupational status: employed current occupation: [employer] Smoking Status: Never smoker alcohol intake: never [...] Cosigner Signature: Date (if applicable) CC: ~ [facility] Work Phone: Reason for referral (narrative)No reason for referral information availableSierra Vista Hospital Work Phone: Chief Complaint and Reason for Visit Chief Complaint Admit Date 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) November 24, 2024 7:57 am VAGINAL BLEED December 07, 2024 10 :57am Reason for Visit Admit Date Encounter for routine gynecological exam ination November 24, 2024 7:57am 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) Reason for Visit Irregular menstruati on, unspecified 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 December 08, 2024 12:34pm ORDER NEEDED December 09, 2024 8: 42am 1 wk f/u December 15, 2024 3: 54pm 2wk D&C January 04, 2025 3:01pm Reason for Visit Admit Date Encounter for routine gynecological exam ination November 24, 2024 7:57am Threatened December 08, 2024 12 :34pm Missed December 15, 2024 3: 54pm Missed December 19, 2024 2: 09pm Missed January 04, 2025 3:01pm Postop check January 04, 2025 3:01pm Family History Relationship Condition Age at Onset Recorded Date/T billie grandfather Diabetes mellitus Unknown Cardiac disease Unknown Myocardial infarction Unknown Alzheimer's dementia Unknown Advance Directives Advance Directive Response Recorded Date/ Time Living Will No December 17 3:19pm Power of Fermenting Cellars Receiver No December 17 021 3:19pm Advance Directive Response Recorded Date/ Time Do you have a Healthcare Power of Fermenting Cellars Receiver? No December 07, 2024 11:12am Advance Directive Response Recorded Date/ Time Do you have a Healthcare Power of Fermenting Cellars Receiver? No December 07, 2024 11:12am Do you have a Healthcare Power of Fermenting Cellars Receiver? No December 16, 2024 1:29pm Summary Purpose Additional Source Comments Goals (unrecognized [...] December 15, 2024 End: December 15, 2024 Team Status: Inactive Member Role/Relationship Status Dates Dr. Myra Gayle DO Primary Care Provider Active Start: December 19, 2024 End: December 19, 2024 Dr. Joan Hall MD Attending Provider Active Start: December 19, 2024 End: December 19, 2024 Dr. Joan Hall MD Referring Provider Active Start: December 19, 2024 End: December 19, 2024 Team Status: Active Member Role/Relationship Status Dates Dr. Myra Gayle DO Primary Care Provider Active Start: December 19, 2024 Dr. Joan Hall MD Attending Provider Active Start: December 19, 2024 Dr. Joan Hall MD Referring Provider Active Start: December 19, 2024 Dr. Joan Hall MD Other Provider Active Start: December 19, 2024 Team Status: Inactive Member Role/Relationship Status Dates Dr. Myra Gayle DO Primary Care Provider Active Start: January 04, 2025 End: January 04, 2025 Dr. Myra Gayle DO Referring Provider Active St art: January 04, 2025 End: January 04, 2025 Margi Pedro DEEP FAT COOK FRY, DEEP FAT COOK FRY-C Attending Provider Active Start: January 04, 2025 End: January 04, 2025 Team Status: Active Member Role/Relationship Status Dates Dr. Myra Gayle DO Primary Care Provider Active Start: January 04, 2025 Margi Pedro DEEP FAT COOK FRY, DEEP FAT COOK FRY-C Attending Provider Active Start: January 04, 2025 Margi Pedro DEEP FAT COOK FRY, DEEP FAT COOK FRY-C Referring Provider Active Start: January 04, 2025 Team Status: Active Member Role/Relationship Status Dates Dr. Myra Gayle DO Primary care physician Active Team Status: Inactive Member Role/Relationship Status Dates Dr. Myra Gayle DO Primary care physician Active Start: November 24, 2024 End: November 24, 2024 Dr. Myra Gayle DO Referring Provider Active St art: November 24, 2024 End: November 24, 2024 Helena Ruiz CNM Attending physician Active Start: November 24, 2024 End: November 24, 2024 Team Status: Inactive Member Role/Relationship Status Dates Dr. Myra Gayle DO Primary care physician Active Start: November 24, 2024 End: November 24, 2024 Helena Ruiz CNM Attending physician Active Start: November 24, 2024 End: November 24, 2024 Team Status: Inactive Member Role/Relationship Status Dates Dr. Myra Gayle DO Primary care physician Active Start: December 07, 2024 End: December 07, 2024 Dr. Nayan Barcenas DO Attending physician Active Start: December 07, 2024 End: December 07, 2024 Dr. Nayan Barcenas DO Emergency Department Physician Active Start: December 07, 2024 End: December 07, 2024 Team Status: Inactive Member Role/Relationship Status Dates Dr. Myra Gayle DO Primary care physician Active Start: December 08, 2024 End: December 08, 2024 Dr. Myra Gayle DO Referring Provider Active St art: December 08, 2024 End: December 08, 2024 Dr. Joan Hall MD Attending physician Active Start: December 08, 2024 End: December 08, 2024 Team Status: Inactive Member Role/Relationship Status Dates Dr. Myra Gayle DO Primary care physician Active Start: December 09, 2024 End: December 09, 2024 Dr. Joan Hall MD Attending physician Active Start: December 09, 2024 End: December 09, 2024 Dr. Joan Hall MD Referring Provider Active Start: December 09, 2024 End: December 09, 2024 Team Status: Inactive Member Role/Relationship Status Dates Dr. Myra Gayle DO Primary care physician Active Start: December 15, 2024 End: December 15, 2024 Dr. Myra aGyle DO Referring Provider Active St art: December 15, 2024 End: December 15, 2024 Dr. Joan Hall MD Attending physician Active Start: December 15, 2024 End: December 15, 2024 Team Status: Inactive Member Role/Relationship Status Dates Dr. Myra Gayle DO Primary care physician Active Start: December 19, 2024 End: December 19, 2024 Dr. Joan Hall MD Attending physician Active Start: December 19, 2024 End: December 19, 2024 Dr. Joan Hall MD Referring Provider Active Start: December 19, 2024 End: December 19, 2024 Team Status: Active Member Role/Relationship Status Dates Dr. Myra Gayle DO Primary care physician Active Start: December 19, 2024 Dr. Joan Hall MD Attending physician Active Start: December 19, 2024 Dr. Joan Hall MD Referring Provider Active Start: December 19, 2024 Dr. Joan Hall MD Nurse Practitioner Active Start: December 19, 2024 Team Status: Inactive Member Role/Relationship Status Dates Dr. Myra Gayle DO Primary care physician Active Start: January 04, 2025 End: January 04, 2025 Dr. Myra Gayle DO Referring Provider Active St art: January 04, 2025 End: January 04, 2025 Margi Pedro NP, [employer] FRY-C Attending physician Active Start: January 04, 2025 End: January 04, 2025 Team Status: Inactive Member Role/Relationship Status Dates Dr. Myra aGyle DO Primary care physician Active Start: January 04, 2025 End: January 04, 2025 Margi Pedro D[employer] FRY, [employer] FRY-C Attending physician Active Start: January 04, 2025 End: January 04, 2025 Margi Pedro NP, NP-C Referring Provider Active Start: January 04, 2025 End: January 04, 2025 INFORMATION SOURCE (unrecogn ized section and content) DATE CREATED AUTHOR 01/18/2025 [facility] FOR RECORDS PERTAINING TO PATIENTS WHO ARE [...] BE BASED ON THE PRIMARY CLINICAL RECORDS. [facility] [employer] [facility]. provides no warranty or guarantee of the accuracy or completeness of information in this document.
== END | disposition home or self-care (01) ==
LOC: OPUS 08:17
PROVIDERS: PCP Family Medicine; Referring Provider Obstetrics & Gynecology; Visit Provider Obstetrics & Gynecology
DX: O09.299 Supervision of pregnancy with other poor reproductive or obstetric history, unspecified trimester (principal); Z3A.00 Weeks of gestation of pregnancy not specified
CPT/HCPCS: 76817

== ENCOUNTER → 2025-04-13 | Outpatient (CLI) | payer OTHER, SELFPAY ==
[2025-04-14 21:08] LABS: Chlamydia By Nucleic Acid AMP Negative (Negative); Gonococcus By Nucleic Acid AMP Negative (Negative)
== END | disposition home or self-care (01) ==
LOC: LABSPEC 11:17
PROVIDERS: PCP Family Medicine; Visit Provider Advanced Practice Midwife
DX: O09.90 Supervision of high risk pregnancy, unspecified, unspecified trimester (principal); Z3A.00 Weeks of gestation of pregnancy not specified
CPT/HCPCS: 87086; 87491; 87591